=== PATIENT | male | born 1940 | race Caucasian/White ===

== ENCOUNTER → 2018-05-07 08:36 | Outpatient (CLI) | payer MEDICARE, SELFPAY ==
[2018-05-07 10:23] LABS: Alanine Aminotransferase 27 U/L (12-78); Albumin Level 3.5 gm/dL (3.4-5.0); Alkaline Phosphatase 109 U/L (46-116); Aspartate Amino Transferase 17 U/L (15-37); Bilirubin,Direct 0.2 mg/dL (0.0-0.2); Bilirubin,Indirect 0.7 mg/dL (0.0-0.9); Bilirubin,Total 0.9 mg/dL (0.2-1.0); Chol/HDL Ratio 3.4 (1-3.5); Cholesterol 100 mg/dL (140-200); Free Thyroxine Index 2.8 ug/dL (5.93-13.13); HDL Cholesterol 29 mg/dL (27-67); LDL Cholesterol 47 mg/dL (0-130); T4 (Thyroxine) 7.9 ug/dl (4.7-13.3); Thyroid Stimulating Hormone 3.29 uIU/ml (0.358-3.740); Total Protein,Serum 5.8 gm/dL (6.4-8.2); Triglycerides 119 mg/dL (30-200); Triiodothryronine (T3) Uptake 36 % (31-39); VLDL Cholesterol 24 mg/dL (0-40)
== END ==
PROVIDERS: PCP Family Medicine; Visit Provider Internal Medicine Cardiovascular Disease
DX: E11.9 Type 2 diabetes mellitus without complications (principal); Z79.899 Other long term (current) drug therapy
CPT/HCPCS: 36415; 80061; 80076; 84436; 84443; 84479

== ENCOUNTER → 2018-10-14 14:32 | Outpatient (POV) | payer MEDICARE, SELFPAY | PROVIDERS: Visit Provider Nurse Practitioner Acute Care | DX: Z00.00 Encounter for general adult medical examination without abnormal findings (principal) ==

== ENCOUNTER → 2019-11-03 09:52 | Outpatient (CLI) | payer MEDICARE, SELFPAY ==
--- NOTE | 2019-11-03 09:56 | CT_ITS ---
PROCEDURE: CT ABDOMEN PELVIS WO CON CLINICAL INDICATION: HX PROSTATE CA Prostate cancer, elevated PSA, history of colon cancer COMPARISON: No exams were available for comparison TECHNIQUE: Axial images obtained with sagittal and coronal reformats. All CT scans at the facility use one or more dose reduction, viz: automated exposure control, ma/kV adjustment per patient size (including targeted exams where dose is matched to indication, i.e. head), or iterative reconstruction technique. Oral contrast was utilized. FINDINGS: There are no previous exams available for comparison. Fibrotic changes are present in the right middle lobe. There is a left lower lobe mass which measures 3.5 by 3 cm abutting the hemidiaphragm. There is associated diaphragmatic calcification and thickening at this region. The liver, spleen, adrenal glands, pancreas, and right kidney have an unremarkable appearance. There is a 4 cm left renal cyst. Surgical clips are present in the left lower quadrant. Metallic streak artifact is present the in the right lower quadrant. No intestinal obstruction or free air. The The prostate is enlarged with nodular contour. The prostate measures 5.6 x 5.5 cm. No pelvic adenopathy. No retroperitoneal or abdominal adenopathy. Urinary bladder wall is slightly thickened. No acute bony anomalies. No lytic or blastic bony lesions. The IMPRESSION: 1. 3.5 cm left lower lobe mass with associated pleural/diaphragmatic thickening and calcification suspicious for neoplasm. Mesothelioma is a consideration. Dedicated chest CT with contrast suggested for further evaluation if there are no old studies available for comparison. The 2. Enlarged prostate with somewhat nodular contour with associated thickening of the urinary bladder wall. Dictated by: Michele Lyle MD 11/04/2019 09:11 Electronically signed by Michele Lyle MD in [place] 11/04/2019 09:11
== END ==
PROVIDERS: PCP Family Medicine; Visit Provider Urology
DX: R97.20 Elevated prostate specific antigen [PSA] (principal)
CPT/HCPCS: 74176

== ENCOUNTER → 2019-11-06 11:32 | Outpatient (CLI) | payer MEDICARE, SELFPAY ==
[2019-11-06 12:44] LABS: Anion Gap 14.2 mEq/L (5-15); Blood Urea Nitrogen 18 mg/dL (7-18); Calcium 8.6 mg/dL (8.5-10.1); Carbon Dioxide 28 mmol/L (21.0-32.0); Chloride 111 mmol/L (98-107); Creatinine,Serum 0.97 mg/dL (0.70-1.30); Estimated Glomerular Filt Rate 75 ml/min (>60); GFR (African American) 91 ML/MIN (>60); Glucose 100 mg/dL (74-106); Potassium 4.2 mmoL/L (3.5-5.1); Sodium 149 mmol/L (137-145)
== END ==
PROVIDERS: Visit Provider Internal Medicine Cardiovascular Disease
DX: E78.5 Hyperlipidemia, unspecified (principal); I10 Essential (primary) hypertension; I25.10 Atherosclerotic heart disease of native coronary artery without angina pectoris; R06.00 Dyspnea, unspecified; Z95.5 Presence of coronary angioplasty implant and graft
CPT/HCPCS: 36415; 80048; 83880

== ENCOUNTER → 2019-11-17 07:52 | Outpatient (CLI) | payer MEDICARE, SELFPAY ==
--- NOTE | 2019-11-17 07:53 | CA_ITS ---
APPROVED REPORT EXAM: Comprehensive 2D, Doppler, and color-flow Echocardiogram Microbiology Manager: Meaghan Tierney RVT Ht: 5 ft 5 in Wt: 209lbs BSA: 2.02 BP: 145/63 mmHg Indications: Diabetes, Palpitations, CAD, Hyperlipidemia, Hypertension,Stents,Gerd,Ex smoker,Hx prostate cancer 2D Dimensions LVOT 1.76 cm (M/F) 1.5-2.5 M-Mode Dimensions RVDd 3.06 cm (0.9-2.6) LVDd 6.08 cm (3.5-5.7) LVDs 4.75 cm (3.5-5.7) IVSd 1.17 cm (0.6-1.1) PWd 0.52 cm (0.6-1.1) EF (Teich) 43.50% FS 21.90% EDV (Teich) 185.50 mL ESV (Teich) 104.90 mL LV Diastology E/A Ratio 0.46 Mitral Valve MV A Velocity 75.00 (40-130 cm/s) Left Ventricle Left atrium is mildly enlarged, left ventricle is normal size, mild concentric left ventricular hypertrophy, visually estimated ejection fraction of 45%, there is marked hypokinesis involving the distal septum and anteroapical wall. Grade 1 diastolic dysfunction seen without tissue Doppler evidence of raise left atrial pressure. Right Ventricle Right atrium and right ventricular normal size and contractility. Aortic Valve Aortic valve is thickened and calcified leaflet chordae display good mobility, there is no aortic stenosis, there is mild aortic insufficiency. Mitral Valve Mitral valve leaflets are minimally thickened, there is no mitral stenosis, there is mild mitral regurgitation. Tricuspid Valve Tricuspid valve is grossly normal, there is mild tricuspid regurgitation. Pulmonic Valve Pulmonic valve is poorly visualized. Great Vessels Aortic root is normal size. Pericardium No significant pericardial effusion noted. Conclusion 1. Mildly enlarged left atrium, normal left ventricular size, mild concentric left ventricular hypertrophy, visually estimated ejection fraction 45% with segmental wall motion abnormality described above, grade 1 diastolic dysfunction seen without tissue Doppler evidence of raise left atrial pressure. 2. Thickened and calcified aortic valve without aortic stenosis, there is mild aortic insufficiency. 3. Mild mitral and tricuspid regurgitation. 4. No significant pericardial effusion noted. Electronically signed by : Jabier Nova, 11/18/2019 05:57:14
--- NOTE | 2019-11-17 08:28 | NM_ITS ---
PROCEDURE: NM BONE SCAN WHOLE BODY CLINICAL INDICATION: HX PROSTATE CANCER Elevated PSA, history of prostate cancer COMPARISON: No exams were available for comparison TECHNIQUE: 26.4 mCi technetium MDP FINDINGS: Nonspecific increased activity is present in the left knee consistent with osteoarthritic changes. There is also increased activity in the right aspect of the cervical spine at the C4-C5 level which may be degenerative nature. Overall, no convincing evidence of metastatic disease. IMPRESSION: No convincing evidence of metastatic disease Dictated by: Michele Lyle MD 11/17/2019 18:59 Electronically signed by Michele Lyle MD in [place] 11/17/2019 18:59
--- NOTE | 2019-11-17 10:38 | HMH.ITSHM ---
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 []PANTOPRAZOLE OMEGA 3 METFORMIN LOSARTAN GABAPENTIN FLAX SEED FANOTIDINE CLOPIDOGREL BISOPROLOL ATORVASTATIN ASA
== END ==
PROVIDERS: PCP Family Medicine; Visit Provider Internal Medicine Cardiovascular Disease
DX: E78.5 Hyperlipidemia, unspecified (principal); I10 Essential (primary) hypertension; I25.10 Atherosclerotic heart disease of native coronary artery without angina pectoris; Z95.5 Presence of coronary angioplasty implant and graft; Z85.46 Personal history of malignant neoplasm of prostate
CPT/HCPCS: 78306; 93306; A9503

== ENCOUNTER → 2019-11-20 11:49 | Outpatient (CLI) | payer MEDICARE, SELFPAY ==
[2019-11-20 16:38] LABS: Prostate Specific Ag, Diagnost 12.6 ng/ml (0.0-4.0)
== END ==
PROVIDERS: Visit Provider Urology
DX: Z85.46 Personal history of malignant neoplasm of prostate (principal); R97.20 Elevated prostate specific antigen [PSA]
CPT/HCPCS: 36415; 84153

== ENCOUNTER 2020-03-05 08:11 | Day surgery (SDC) | payer MEDICARE, SELFPAY ==
[2020-03-05] VITALS (11 sets, daily range): BP systolic 111–154; BP diastolic 55–73; PULSE 50–65; RESP 15–20; TEMP 36.4; O2SAT 95–100; BMI 31.3
--- NOTE | 2020-03-05 | IR_ITS ---
APPROVED REPORT Patient Location: Outpatient PROCEDURES Left heart catheterization Left ventriculogram Selective coronary angiogram INDICATION Known coronary artery disease, Left ventricular dysfunction, Typical angina pectoris Informed consent was obtained prior to the procedure. COMPLICATIONS NONE Estimated Blood Loss: LESS THAN 10 ML TECHNIQUE One percent lidocaine used to anesthetize the right anterior aspect of the wrist. The right radial artery was accessed via the Seldinger technique. A 6 Salvadorean sheath was placed in the right radial artery. 2.5 mg of verapamil, 800 mcg of nitroglycerin, 1mg Lidocaine and 5000 U Heparin were given through the arterial sheath. The ultra catheter was also used to perform left heart catheterization, left ventriculogram and selective coronary angiogram. At the end of the procedure the sheath was removed good hemostasis was achieved using Traclet band, patient was transferred to the postop holding area in stable condition. ANGIOGRAPHIC RESULTS The left main artery Normal The left anterior descending artery The proximal portion of the vessel has a smooth concentric 30% stenosis which transitions into a proximal LAD stent in which the stent is widely patent and has excellent distal transitioning. The remaining vessel has 10 to 20% stenosis The circumflex artery Is a very large caliber dominant vessel with proximal 10% stenosis in mid vessel 30% stenosis and a 30 to 40% stenosis and a proximal 3 mm terminal obtuse marginal artery The right coronary artery Small nondominant with proximal 40% stenosis The ZAMUDIO ventriculogram reveals Preserved at 55% The left ventricular end-diastolic pressure 20 mmHg IMPRESSION Coronary artery disease as described above Preserved ejection fraction Mildly elevated LVEDP PLAN 1. Medical management Electronically signed by : Jerome Steen, 03/05/2020 10:29:29
[2020-03-05 08:34] LABS: Basophils % 0.4 % (0.1-2.0); Eosinophils # 1.5 K/mm3 (0.0-0.4); Eosinophils % 19.8 % (0.1-12.0); Hematocrit 39.7 % (42.0-52.0); Hemoglobin 13.8 g/dL (14.1-18.0); Lymphocytes # 1.4 K/mm3 (0.7-4.5); Lymphocytes % 18.1 % (10-50); Mean Corpuscular HGB Conc 34.6 g/dL (31.8-35.4); Mean Corpuscular Hemoglobin 30.2 pg (27.0-31.2); Mean Corpuscular Volume 87.3 fl (80-94); Mean Platelet Volume 8.4 fl (7.4-10.4); Monocytes # 0.5 K/mm3 (0.1-1.0); Monocytes % 6.9 % (1.7-9.3); Neutrophils # 4.2 K/mm3 (1.8-7.8); Neutrophils % 54.9 % (37.0-80.0); Platelet Count 147 K/mm3 (142-424); Red Blood Count 4.55 M/mm3 (4.60-6.20); Red Cell Distribution Width 15.5 % (11.5-17.5); White Blood Count 7.7 K/mm3 (4.8-10.8)
[2020-03-05 08:37] LABS: Chloride 108 mmol/L (98-107); Potassium 4.1 mmoL/L (3.5-5.1); Sodium 142 mmol/L (136-145)
[2020-03-05 08:40] LABS: Anion Gap 9.1 mEq/L (5-15); Blood Urea Nitrogen 21 mg/dl (9-20); Calcium 9.2 mg/dl (8.4-10.2); Carbon Dioxide 29 mmol/L (22.0-30.0); Creatinine Clearance Estimated 72 mL/min (50-200); Estimated Glomerular Filt Rate 65 ml/min (>60); GFR (African American) 78 ML/MIN (>60); Glucose 134 mg/dl (74-100)
== END 2020-03-05 14:16 | disposition home or self-care (01) ==
LOC: CATHLAB 08:12
PROVIDERS: PCP Family Medicine; Visit Provider Internal Medicine
DX: I25.118 Atherosclerotic heart disease of native coronary artery with other forms of angina pectoris (principal); I10 Essential (primary) hypertension; E78.5 Hyperlipidemia, unspecified; Z95.5 Presence of coronary angioplasty implant and graft; Z87.891 Personal history of nicotine dependence; Z79.82 Long term (current) use of aspirin; Z79.899 Other long term (current) drug therapy; Z79.02 Long term (current) use of antithrombotics/antiplatelets
CPT/HCPCS: 80048; 85025; 93458; 99152; C1769; J1644; Q9967

== ENCOUNTER → 2020-04-01 13:59 | Outpatient (CLI) | payer MEDICARE, SELFPAY ==
[2020-04-01 16:09] LABS: Prostate Specific Ag, Diagnost 1.07 ng/ml (0.0-4.0)
== END ==
PROVIDERS: Visit Provider Urology
DX: C61 Malignant neoplasm of prostate (principal)
CPT/HCPCS: 36415; 84153

== ENCOUNTER → 2020-04-12 10:25 | Outpatient (CLI) | payer MEDICARE, SELFPAY | PROVIDERS: PCP Family Medicine; Visit Provider Family Medicine | DX: R91.1 Solitary pulmonary nodule (principal) ==

== ENCOUNTER → 2020-04-15 12:40 | Outpatient (CLI) | payer MEDICARE, SELFPAY ==
--- NOTE | 2020-04-15 12:45 | CT_ITS ---
PROCEDURE: CT CHEST W CON CLINCAL INDICATION: LUNG LESION History of colon cancer and prostate cancer with lung nodule, left lower lobe mass seen on previous abdomen CT COMPARISON: CT ABDOMEN PELVIS WO CON from 11/03/2019 TECHNIQUE: IV Contrast: 75ml Optiray 350 Axial images obtained with sagittal and coronal reformats. All CT scans at the facility use one or more dose reduction, viz: automated exposure control, ma/kV adjustment per patient size (including targeted exams where dose is matched to indication, i.e. head), or iterative reconstruction technique. FINDINGS: HEART AND MEDIASTINAL STRUCTURES: Scattered partially calcified mediastinal and hilar lymph nodes are present. The main pulmonary artery is slightly prominent with a pulmonary artery/aorta ratio of slightly greater than 1. No evidence aortic aneurysm or dissection. No pulmonary embolus apparent LUNGS AND PLEURAL SPACES: There are pulmonary fibrotic changes in the right middle lobe inferiorly with some honeycombing. Pulmonary fibrotic changes in the lung bases posteriorly. COPD. Left lower lobe soft tissue mass is noted measuring 4.2 cm AP, 3.7 cm transverse, 2.8 cm cephalad caudad previously measuring 3.7 cm AP, 3.4 cm transverse, and 3 cm cephalad caudad. This is rounded in nature and cysts along the hemidiaphragm. There is associated left diaphragmatic thickening with calcification along the inferior aspect of this lesion. No effusions are evident. No acute bony anomaly.. This has slightly increased in size previously measuring BONY STRUCTURES: No acute bony anomaly UPPER ABDOMEN: Unremarkable. ADDITIONAL FINDINGS: No other significant abnormalities. IMPRESSION: 1. Suspicious 4 cm soft tissue mass in the left lung base with associated diaphragmatic thickening and calcification. This appears very slightly larger compared to the previous abdomen CT of 11/03/2019. This should be amenable for biopsy with bronchoscopy if clinically desired. 2. COPD with pulmonary fibrosis Dictated by: Michele Lyle MD 04/16/2020 12:33 Electronically signed by Michele Lyle MD in [place] 04/16/2020 12:33
== END ==
PROVIDERS: PCP Family Medicine; Visit Provider Family Medicine
DX: R91.1 Solitary pulmonary nodule (principal)
CPT/HCPCS: 71260; Q9967

== ENCOUNTER → 2020-05-06 10:48 | Outpatient (CLI) | payer MEDICARE, SELFPAY | PROVIDERS: Visit Provider Internal Medicine Pulmonary Disease | DX: J42 Unspecified chronic bronchitis (principal); R06.00 Dyspnea, unspecified; R91.8 Other nonspecific abnormal finding of lung field | CPT/HCPCS: 87070; 87077; 87205 ==

== ENCOUNTER → 2020-07-05 14:07 | Outpatient (CLI) | payer MEDICARE, MEDICAID, SELFPAY ==
[2020-07-05 15:49] LABS: Prostate Specific Ag, Diagnost 0.538 ng/ml (0.0-4.0)
== END ==
PROVIDERS: Visit Provider Urology
DX: C61 Malignant neoplasm of prostate (principal)
CPT/HCPCS: 36415; 84153

== ENCOUNTER → 2021-01-03 13:33 | Outpatient (CLI) | payer MEDICARE, SELFPAY | PROVIDERS: Visit Provider Urology | DX: C61 Malignant neoplasm of prostate (principal) | CPT/HCPCS: 84153 ==

== ENCOUNTER → 2021-04-04 13:14 | Outpatient (CLI) | payer MEDICARE, SELFPAY ==
--- NOTE | 2021-04-04 13:39 | CT_ITS ---
PROCEDURE: CT CHEST W CON CLINCAL INDICATION: LESION ON LUNG Every gated chance continued see the pain to the LDCT hanging low-dose COMPARISON: CR CXR CHEST(2 VIEWS-NOT PORTABLE) from 11/25/[address] ABDOMEN PELVIS WO CON from 11/03/[address] CHEST W CON from 04/15/2020 TECHNIQUE: IV Contrast: 75ml Isovue 370 Axial images obtained with sagittal and coronal reformats. All CT scans at the facility use one or more dose reduction, viz: automated exposure control, ma/kV adjustment per patient size (including targeted exams where dose is matched to indication, i.e. head), or iterative reconstruction technique. FINDINGS: HEART AND MEDIASTINAL STRUCTURES: No mediastinal or hilar mass. There are calcified mediastinal and hilar lymph nodes. Coronary artery calcification and/or stents noted. Mild prominence of the main pulmonary artery . There is mild dilatation of the ascending aorta at the supravalvular region at 4.2 cm not significantly changed. At the most prominent area of the main pulmonary artery on the axial images the pulmonary artery/aorta ratio is greater than 1 LUNGS AND PLEURAL SPACES: COPD changes. Chronic fibrotic changes with honeycombing is present in the right middle lobe inferiorly and right lower lobe anterior laterally as before. Greater than 1. Soft tissue mass is once again noted in the left lower lobe along the left hemidiaphragm with coarse calcifications anteriorly. The mass measures 6 cm AP and 5.2 cm transverse. This includes the area of calcification as well. The soft tissue component of the mass measures 3.9 x 3.2 x 3.5 cm overall not significantly changed. Medial to this mass there is a 7 mm nodular opacity not readily apparent on the previous exam but could be due to an area of scarring or atelectatic change. BONY STRUCTURES: No acute bony abnormalities apparent. UPPER ABDOMEN: Unremarkable. ADDITIONAL FINDINGS: Mild bilateral gynecomastia IMPRESSION: Overall no change in the left lower lobe mass which abuts the hemidiaphragm with associated coarse diaphragmatic calcification. Mild prominence of the main pulmonary artery suggesting pulmonary arterial hypertension. Dictated by: Michele Lyle MD 04/04/2021 16:45 Michele Lyle MD in [place] 04/04/2021 16:45
[2021-04-04 13:54] LABS: Blood Urea Nitrogen 21 mg/dl (9-20); Estimated Glomerular Filt Rate 72 ml/min (>60); GFR (African American) 87 ML/MIN (>60)
== END ==
PROVIDERS: PCP Family Medicine; Visit Provider Family Medicine
DX: R91.1 Solitary pulmonary nodule (principal)
CPT/HCPCS: 36415; 71260; 82565; 84520; Q9967

== ENCOUNTER → 2021-07-05 13:25 | Outpatient (CLI) | payer MEDICARE, SELFPAY ==
[2021-07-05 17:00] LABS: Prostate Specific Ag, Diagnost 0.385 ng/ml (0.0-4.0)
== END ==
PROVIDERS: Visit Provider Urology
DX: C61 Malignant neoplasm of prostate (principal)
CPT/HCPCS: 36415; 84153

== ENCOUNTER 2021-08-14 07:26 | Inpatient (IN) | payer MEDICARE, SELFPAY ==
[2021-08-14] VITALS (13 sets, daily range): BP systolic 124–142; BP diastolic 43–78; PULSE 74–104; RESP 20–32; TEMP 36.6–37.7; O2SAT 71–96; BMI 30.7; BMI 30.4
--- NOTE | 2021-08-14 07:52 | ECG_ITS ---
APPROVED REPORT Exam: Resting ECG HR:92 bpm ECG Measurements Heart Rate 92 AXES WY 166 P 47 QRSd 76 QRS 25 QT 356 T 55 QTc 440 Conclusion Normal sinus rhythm NSSTST abnormality Abnormal ECG Electronically signed by : Reagan Neal MD 08/14/2021 15:35:34
--- NOTE | 2021-08-14 07:58 | XR_ITS ---
PROCEDURE INFORMATION: Exam: XR Chest Exam date and time: 08/14/2021 7:58 AM Age: 81 years old Clinical indication: Shortness of breath; Additional info: SOB TECHNIQUE: Imaging protocol: XR of the chest. Views: 1 view. COMPARISON: CT CHEST W CON 04/04/2021 2:13 PM FINDINGS: Lungs: Patchy bilateral airspace opacities most confluent in the right upper lobe. Pleural spaces: Unremarkable. No pleural effusion. No pneumothorax. Heart/Mediastinum: Unremarkable. No cardiomegaly. Bones/joints: Unremarkable. IMPRESSION: Patchy bilateral airspace opacities, most confluent in the right upper lobe, most consistent with pneumonia.
--- NOTE | 2021-08-14 08:01 | HMH.EDGENADL ---
ED Disposition Clinical Impression: Pneumonia due to COVID-19 virus Respiratory failure with hypoxia Qualifiers: Chronicity: acute Qualified Code(s): J96.01 - Acute respiratory failure with hypoxia Disposition: Home, Self-Care Condition on Discharge: Serious Referrals: Mauricio Durham MD [Primary Care Provider] - - Critical Care Critical Care Time: Yes Attestation: On 08/14/21, the high probability of a clinically significant, sudden or life threatening deterioration of the following system(s) required my full and direct attention, intervention and personal management. The time I documented below is in addition to time spent performing reported procedures but includes the following listed in this critical care notation. Total Critical Care Time: 30 Vital system(s) involved:: Respiratory Failure My critical care processes included: Assessment & monitoring of V/S, Initial and Re-exams, Data Review/Interpretation, Coordinating Care, Medication Orders and management, Documentation Medical Decision Making - Andi Inquiry Pt receiving controlled substance: No Vital Signs: 08/14/21 07:27 08/14/21 08:00 08/14/21 08:03 Temperature 99.2 F Temperature Source Oral Pulse Rate 95 H Pulse Rate [Radial] 104 H Respiratory Rate 28 H 28 H Blood Pressure 129/59 L Blood Pressure [Right Arm] 127/63 Blood Pressure Mean 82 Blood Pressure Mean [Right Arm] 84 Blood Pressure Position [Right Arm] Sitting 02 Sat by Pulse Oximetry 71 L 87 L 96 Oxygen Delivery Method Room Air Non-Rebreather Non-Rebreather Oxygen Flow Rate (LPM) 15 08/14/21 08:31 08/14/21 09:05 Temperature Temperature Source Pulse Rate 94 H Pulse Rate [Radial] Respiratory Rate 32 H Blood Pressure 133/51 L Blood Pressure [Right Arm] Blood Pressure Mean 76 Blood Pressure Mean [Right Arm] Blood Pressure Position [Right Arm] 02 Sat by Pulse Oximetry 95 94 L Oxygen Delivery Method Non-Rebreather Vapotherm Oxygen Flow Rate (LPM) 15 30 - Lab Data Lab Results 08/14/21 07:48: WBC 5.0, RBC 4.25 L, Hgb 12.2 L, Hct 37.9 L, MCV 89.2, MCH 28.6, MCHC 32.1, RDW 16.1, Plt Count 221, MPV 9.3, Neut % (Auto) 80.0, Lymph % (Auto) 12.6, [place] % (Auto) 6.7, Eos % (Auto) 0.2, Baso % (Auto) 0.5, Neut # (Auto) 4.0, Lymph # (Auto) 0.6 L, [place] # (Auto) 0.3, Eos # (Auto) 0.0, Baso # (Auto) 0.0 08/14/21 07:48: Sodium 137, Potassium 4.8, Chloride 103, Carbon Dioxide 27, Anion Gap 11.8, BUN 26 H, Creatinine 1.40 H, Estimated Creat Clear 59, Estimated GFR 49 L, Est GFR ( Amer) 59, Glucose 264 H, Calcium 8.9, Total Bilirubin 1.1, AST 75 H, ALT 40, Alkaline Phosphatase 103, Troponin I 0.02, Total Protein 6.8, Albumin 3.8, Globulin 3.0, Albumin/Globulin Ratio 1.3 08/14/21 07:48: Lactate 3.0 H 08/14/21 07:48: D-Dimer 0.93 H 08/14/21 07:48: Lactate Dehydrogenase 584, Total Creatine Kinase 303 H, C-Reactive Protein 303.4 H 08/14/21 07:50: SARS-CoV-2 (PCR) Detected A, Influenza A Untype (PCR) Not detected, Influenza Type B (PCR) Not detected Result diagrams: 08/14/21 07:48 08/14/21 07:48 Orders (Tests/Meds): ED MEDICATIONS Generic Name Dose Route Start Last Admin Trade Name Freq PRN Reason Stop Dose Admin Levofloxacin/Dextrose 750 mg in 150 mls @ 100 mls/hr 08/14/21 08:45 08/14/21 08:55 Levofloxacin 750mg/150ml Premix IV 08/28/21 08:44 100 mls/hr Q24H WALLACE Administration Discontinued Medications Generic Name Dose Route Start Last Admin Trade Name Freq PRN Reason Stop Dose Admin Dexamethasone Sodium Phosphate 10 mg 08/14/21 08:58 Dexamethasone 4mg/Ml 1ml Vial IV 08/14/21 08:59 ONCE ONE Iopamidol 70 ml 08/14/21 09:29 08/14/21 09:31 Iopamidol-370 (76%);100ml Bottle IV 08/14/21 09:30 70 ml ONCE ONE Administration Sodium Chloride 50 ml 08/14/21 09:29 08/14/21 09:30 0.9 % Sodium Chloride 50 Ml Vial IV 08/14/21 09:30 50 ml ONCE ONE Administration Sodium Chloride 10 ml 08/14/21 09:29 08/14/21
[2021-08-14 08:15] LABS: Influenza A, PCR Not Detected (NotDetected); Influenza B, PCR Not Detected (NotDetected)
[2021-08-14 08:20] LABS: Basophils % 0.5 % (0.1-2.0); Eosinophils % 0.2 % (0.1-12.0); Hematocrit 37.9 % (42.0-52.0); Hemoglobin 12.2 g/dL (14.1-18.0); Lymphocytes # 0.6 K/mm3 (0.7-4.5); Lymphocytes % 12.6 % (10-50); Mean Corpuscular HGB Conc 32.1 g/dL (31.8-35.4); Mean Corpuscular Hemoglobin 28.6 pg (27.0-31.2); Mean Corpuscular Volume 89.2 fl (80-94); Mean Platelet Volume 9.3 fl (7.4-10.4); Monocytes # 0.3 K/mm3 (0.1-1.0); Monocytes % 6.7 % (1.7-9.3); Platelet Count 221 K/mm3 (142-424); Red Blood Count 4.25 M/mm3 (4.60-6.20); Red Cell Distribution Width 16.1 % (11.5-17.5)
[2021-08-14 08:28] LABS: Alanine Aminotransferase 40 U/L (12-78); Albumin Level 3.8 g/dl (3.5-5.0); Albumin/Globulin Ratio 1.3 (1.1-1.8); Alkaline Phosphatase 103 U/L (38-126); Anion Gap 11.8 mEq/L (5-15); Aspartate Amino Transferase 75 U/L (17-59); Bilirubin,Total 1.1 mg/dl (0.2-1.3); Blood Urea Nitrogen 26 mg/dl (9-20); Calcium 8.9 mg/dl (8.4-10.2); Carbon Dioxide 27 mmol/L (22.0-30.0); Chloride 103 mmol/L (98-107); Creatinine Clearance Estimated 59 mL/min (50-200); Estimated Glomerular Filt Rate 49 ml/min (>60); GFR (African American) 59 ML/MIN (>60); Glucose 264 mg/dl (74-100); Potassium 4.8 mmoL/L (3.5-5.1); Sodium 137 mmol/L (136-145); Total Protein,Serum 6.8 g/dl (6.3-8.2)
[2021-08-14 08:38] LABS: Coronavirus 19, PCR Detected (NotDetected)
[2021-08-14 08:40] LABS: Troponin I 0.02 ng/ml (0.00-0.034)
--- NOTE | 2021-08-14 08:43 | CT_ITS ---
PROCEDURE INFORMATION: Exam: CTA Chest With Contrast Exam date and time: 08/14/2021 8:43 AM Age: 81 years old Clinical indication: Shortness of breath and other: Covid positive; Additional info: Covid 19, hypoxia, R/O pe TECHNIQUE: Imaging protocol: Computed tomographic angiography of the chest with contrast. 3D rendering (Not supervised by radiologist): MIP and/or 3D reconstructed images were created by the technologist. Radiation optimization: All CT scans at this facility use at least one of these dose optimization techniques: automated exposure control; mA and/or kV adjustment per patient size (includes targeted exams where dose is matched to clinical indication); or iterative reconstruction. Contrast material: ISOVUE; Contrast volume: 70 ml; Contrast route: INTRAVENOUS (IV); COMPARISON: CT CHEST W CON 04/04/2021 2:13 PM FINDINGS: Pulmonary arteries: No pulmonary emboli. The main pulmonary artery is dilated to 4.3 cm, which again may suggest pulmonary arterial hypertension. Aorta: Unremarkable. No aortic aneurysm. No aortic dissection. Lungs: Ground-glass opacities are seen throughout all lobes of the lungs bilaterally, new from 04/04/2021. Pleural spaces: Unremarkable. No pneumothorax. No pleural effusion. Heart: Coronary artery calcification. Lymph nodes: Calcified mediastinal and hilar lymph nodes. Diaphragm: Similar size and appearance of a left lower lobe soft tissue mass with coarse calcifications abutting the left hemidiaphragm measuring 6.7 x 4.6 cm. Gallbladder and bile ducts: Cholecystectomy. Bones/joints: Unremarkable. No acute fracture. Soft tissues: Unremarkable. IMPRESSION: 1. No pulmonary emboli identified. 2. Multilobar pneumonia. 3. Similar size and appearance of a left lower lobe soft tissue mass abutting the left hemidiaphragm.
--- NOTE | 2021-08-14 09:10 | PC.NURSE ---
Pt placed on Non rebreather to go for CTA chest
[2021-08-14 09:16] LABS: D-Dimer 0.93 ug/mL (0.0-0.5)
[2021-08-14 09:23] LABS: Creatine Kinase 303 U/L (55-170); Lactate Dehydrogenase 584 U/L (313-618)
[2021-08-14 09:29] LABS: C-Reactive Protein 303.4 mg/L (0-4)
[2021-08-14 12:13] LABS: Reflex Lactic Add Lactic Reflex
[2021-08-14 12:59] LABS: Lactic Acid Follow Up (RFLX 1) 1.6 mmol/L (0.7-2.1)
--- NOTE | 2021-08-14 14:20 | HMH.HP ---
*Admission Date: 08/14/21 *Chief complaint: COVID 19 pneumonia *History of present illness: 81 y.o. WM admitted via ER with COVID 19 pneumonia. Was vaccinated against COVID 10 December 2020, Pfizer. States he's been ill for [address] Murphy placed order last week to screen for COVID 19 but the patient did not pursue the lab tests. Positive PCR in ER. Low O2 sats, even to 70's. Has been placed on Vapotherm. He is diabetic and has history of colon resection for colon cancer 2002. Also with CAD with stents. In addition to cough, SOA, patient states he's had some diarrhea and headache. [facility] History Medical History: Reports:: Atherosclerotic Heart Disease, Cancer, Chronic Obstructive Pulmonary Disease (COPD) (LLL lesion on CXR, seems stable), Coronary Artery Disease (2 stents 2014, 2 stents 2016), Diabetes Mellitus Type 2, Gastroesophageal Reflux Disease(GERD), Hyperlipidemia, Hypertension, Lung Disease, Myocardial Infarction, Palpitations, Ulcer Denies:: Diabetes Mellitus Type 1, Internal Pacemaker, Seizures *Have you ever received a pneumonia vaccine?: Yes *Have you received a flu vaccine this season?: Yes Other Medical History: Reports: Arthritis, Cataracts, Chemotherapy Other Surgeries: Yes: No Previous Surgery, Angioplasty, Appendectomy, Cancer Surgery (2002), Cardiac Catheterization, Cholecystectomy, Colonoscopy (2018), Coronary Stent, Other (low back pain). No: Pacemaker Amputation: No Fractures: No - *Social History Smoking Status: Former smoker (quit smoking 1967) Alcohol Intake: never Alcohol Intake Frequency:: other Substance Use Type: denies use *Occupational Status:: retired Housing: house Household Members: spouse *Travel in the last 8 weeks: None Family Hx:: Coronary Artery Disease (Parents and brother), Diabetes (mother), Heart Attack Review of Systems - Constitutional Reports fever(s), Reports headache(s), Denies anorexia, Denies body ache(s), Denies chills - Eyes Reports requires corrective lenses, Denies change in vision - ENT Reports abnormal hearing, Denies mouth lesions, Denies nasal obstruction (has poor sense of smell as a rule) - *Cardiovascular Reports chest pain, Reports chest pain with activity, Reports shortness of breath, Reports shortness of breath with activity, Denies leg swelling, Denies rapid, pounding, or irregular heartbeat, Denies fainting - *Respiratory Reports chest congestion, Reports cough, Reports shortness of breath, Reports shortness of breath with activity, Reports pain with cough - *Gastrointestinal Reports abdominal pain (with coughing), Reports loose stools - *Genitourinary Denies difficulty urinating - *Musculoskeletal Reports joint pain - *Neurologic Reports weakness Meds Home Medications Medication Instructions Recorded Confirmed Type aspirin 81 mg tablet,delayed 81 mg PO QDAY 10/24/17 08/14/21 History release flaxseed oil 1,000 mg capsule 1,000 mg PO QDAY 10/24/17 08/14/21 History metformin 500 mg tablet 500 mg PO BID 10/24/17 08/14/21 History omega 0-rgw-aie-fish oil 1,000 mg 1 cap PO DAILY 10/24/17 08/14/21 History (120 mg-180 mg) capsule famotidine 20 mg tablet 20 mg PO BID tab 10/26/17 08/14/21 History atorvastatin 40 mg tablet 40 mg PO QDAY #90 tab 03/17/21 08/14/21 Rx bisoprolol fumarate 5 mg tablet 2.5 mg PO DAILY #90 tab 03/17/21 08/14/21 Rx clopidogrel 75 mg tablet 75 mg PO QDAY #90 tab 03/17/21 08/14/21 Rx gabapentin 300 mg capsule 600 mg PO BID cap 03/17/21 08/14/21 History pantoprazole 40 mg tablet,delayed 40 mg PO QDAY #90 tab 03/17/21 08/14/21 Rx release Losartan Potassium [Cozaar 25mg 25 mg PO DAILY 08/14/21 08/14/21 History Tablets] Allergies Allergy/AdvReac Type Severity Reaction Status Date / Time No Known Allergies Allergy Verified 07/05/21 13:09 Exam Vital signs and Labs for Last 24 Hours: Temp Pulse Resp BP Pulse Ox 99.9 F H 88 24 124/68 96 08/14/21 11:32 08/14/21 11:32 08/14/21 11:32 1
[2021-08-14 14:27] LABS: Coronavirus 19 IgG Antibody Positive (Negative)
[2021-08-14 14:28] LABS: Coronavirus 19 IgM Antibody Negative (Negative)
--- NOTE | 2021-08-14 14:46 | P.CONPHA_ITS ---
[facility] Pharmacy VTE Monitoring - Patient Demographics Admission date: 08/14/21 Report Date: 08/14/21 Time: 14:46 Allergies/Adverse Reactions: Patient Allergies No Known Allergies Allergy (Verified 07/05/21 13:09) Height: 1.8 m Weight: 98.8 kg Patient Problems: Current Active Problems Pneumonia due to COVID-19 virus (Acute) Respiratory failure with hypoxia (Acute) Chest pain (Acute) Diabetes mellitus (Chronic) HLD (hyperlipidemia) (Chronic) HTN (hypertension) (Chronic) CAD (coronary artery disease) (Chronic) - VTE Risk Labs: VTE Related Lab Results Hgb 12.2 g/dL (14.1-18.0) L 08/14/21 07:48 Hct 37.9 % (42.0-52.0) L 08/14/21 07:48 Plt Count 221 K/mm3 (142-424) 08/14/21 07:48 BUN 26 mg/dl (9-20) H 08/14/21 07:48 Creatinine 1.40 mg/dl (0.66-1.25) H 08/14/21 07:48 Estimated Creat Clear 59 mL/min (50-200) 08/14/21 07:48 VTE Risk Level: Moderate Risk - Prophylaxis Types of VTE Prophylaxis: TEDS Knee High, Pharmacological (LOVENOX AND HERBERT HOSE) Pharmacologic Type: Enoxaparin
[2021-08-14 21:16] LABS: POC Glucose,Bedside 275 (70-110)
[2021-08-14 22:12] LABS: POC Glucose,Bedside 257 (70-110)
[2021-08-15] VITALS (11 sets, daily range): BP systolic 127–156; BP diastolic 54–81; PULSE 60–80; RESP 20–22; TEMP 36.6–37.2; O2SAT 92–97; BMI 30.4
--- NOTE | 2021-08-15 04:38 | PC.NURSE ---
VSS, 02 sat 96% won vapotherm at 30/80; pt worried about outcome, and was somewhat restless. He has requested something to help him sleep and states he hasn't slept for 4 days, when checked on pt through the night it was noted that he was sleeping in intervals, pt complains vapotherm bothers him, pt with cough productive at times and sputum was sent for culture.
[2021-08-15 07:36] LABS: Alanine Aminotransferase 35 U/L (12-78); Albumin Level 3.2 g/dl (3.5-5.0); Albumin/Globulin Ratio 1.2 (1.1-1.8); Alkaline Phosphatase 84 U/L (38-126); Anion Gap 8.6 mEq/L (5-15); Aspartate Amino Transferase 70 U/L (17-59); Bilirubin,Total 0.6 mg/dl (0.2-1.3); Blood Urea Nitrogen 26 mg/dl (9-20); Calcium 8.6 mg/dl (8.4-10.2); Carbon Dioxide 29 mmol/L (22.0-30.0); Chloride 108 mmol/L (98-107); Creatinine Clearance Estimated 75 mL/min (50-200); Estimated Glomerular Filt Rate 64 ml/min (>60); GFR (African American) 78 ML/MIN (>60); Globulin 2.7 g/dL (1.3-3.2); Glucose 223 mg/dl (74-100); Potassium 4.6 mmoL/L (3.5-5.1); Sodium 141 mmol/L (136-145); Total Protein,Serum 5.9 g/dl (6.3-8.2)
--- NOTE | 2021-08-15 08:41 | HMH.ACPN2 ---
Internal Medicine - PN: Subj *Date: 08/15/21 *Time: 08:41 Interval history: Patient states he slept about an hour last night. States he has not slept in about 4 days. He has an ongoing frequent productive cough. This cough actually kept the patient awakened the next room. He is eating okay. Bowels have moved. He is voiding QS. Continues with Vapotherm at 70%. Although documented at 80%. O2 sats are in the 90s. Laboratory data this morning show normal potassium and sodium. BUN is 26 and creatinine is 1.1. AST is 70. He does have a low-grade fever of 99. Exam Vital signs and Labs for Last 24 Hours: Temp Pulse Resp BP Pulse Ox 99 F 78 20 130/68 96 08/15/21 04:00 08/15/21 04:00 08/15/21 04:00 08/15/21 04:00 08/15/21 06:55 Laboratory Results - last 24 hr 08/14/21 07:48: Troponin I 0.02 08/14/21 07:48: D-Dimer 0.93 H 08/14/21 07:48: Lactate Dehydrogenase 584, Total Creatine Kinase 303 H, C-Reactive Protein 303.4 H 08/14/21 11:53: SARS-CoV-2 IgG Ab (Rapid) Positive A, SARS-CoV-2 IgM Ab (Rapid) Negative 08/14/21 12:37: Lactate 1.6 08/14/21 16:28: POC Glucose 275 H 08/14/21 21:15: POC Glucose 257 H 08/15/21 06:50: Sodium 141, Potassium 4.6, Chloride 108 H, Carbon Dioxide 29, Anion Gap 8.6, BUN 26 H, Creatinine 1.10 D, Estimated Creat Clear 75, Estimated GFR 64, Est GFR ( Amer) 78 D, Glucose 223 H, Calcium 8.6, Total Bilirubin 0.6, AST 70 H, ALT 35, Alkaline Phosphatase 84, Total Protein 5.9 L, Albumin 3.2 L D, Globulin 2.7, Albumin/Globulin Ratio 1.2 I & O for Last 24 hours: Intake & Output 08/12/21 08/13/21 08/14/21 08/15/21 11:59 11:59 11:59 11:59 Intake Total 240 / 240 Output Total 375 / 375 Balance -135 / -135 Weight 217 lb 13.067 oz 217 lb Microbiology Reports for the Last 24 Hours: Microbiology 08/15/21 01:34 Sputum - Expectorated Sputum Gram Stain - Final - Constitutional no acute distress Comments: Answers questions with ease. - *Routine Respiratory Exam Present: rhonchi (Greater in the left base.), wheezes, crackles - *Routine Cardiovascular Exam Present: RRR - *Routine Abdominal Exam Present: soft, normoactive bowel sounds. Absent: tenderness, distended - *Routine Extremities Exam Absent: edema, calf tenderness Assessment and Plan (1) Pneumonia due to COVID-19 virus Status: Acute Category: Medical Code(s): U07.1 - COVID-19; J12.82 - Pneumonia due to coronavirus disease 2019 (2) Respiratory failure with hypoxia Status: Acute Qualifiers: Chronicity: acute Qualified Code(s): J96.01 - Acute respiratory failure with hypoxia Category: Medical Code(s): J96.91 - Respiratory failure, unspecified with hypoxia (3) Chest pain Status: Acute Qualifiers: Chest pain type: other chest pain Qualified Code(s): R07.89 - Other chest pain Category: Medical Code(s): R07.9 - Chest pain, unspecified (4) CAD (coronary artery disease) Status: Chronic Qualifiers: Coronary Disease-Associated Artery/Lesion type: [place] artery [place] vs. transplanted heart: [place] heart Associated angina: with other forms of angina Qualified Code(s): I25.118 - Atherosclerotic heart disease of [place] coronary artery with other forms of angina pectoris Category: Medical Code(s): I25.10 - Atherosclerotic heart disease of [place] coronary artery without angina pectoris (5) Diabetes mellitus Status: Chronic Qualifiers: Diabetes mellitus type: type 2 Diabetes mellitus jail insulin use: without jail use Diabetes mellitus complication status: without complication Qualified Code(s): E11.9 - Type 2 diabetes mellitus without complications Category: Medical Code(s): E11.9 - Type 2 diabetes mellitus without complications (6) HLD (hyperlipidemia) Status: Chronic Qualifiers: Hyperlipidemia type: mixed hyperlipidemia Qualified Code(s): E78.2 - Mixed hyperlipidemia Category: Medical Code
--- NOTE | 2021-08-15 12:16 | PC.NURSE ---
PT IS RESTING IN BED IN PRONE POSITION AT THIS TIME. VAPOTHERM HAS BEEN DECREASED TO 30 L 55% FIO2. LUNG SOUNDS HAVE SCATTERED WHEEZES/RHONCHI. ABDOMEN SOFT/NON TENDER WITH ACTIVE BOWEL SOUNDS. APPETITE HAS BEEN FAIR. PT HAS BEEN USING THE URINAL TO VOID. ALERT AND ORIENTED X4. WILL CONTINUE TO MONITOR.
--- NOTE | 2021-08-15 12:55 | HMH.PULMCON ---
*Admission Date: 08/14/21 *Reason for consult:: Acute hypoxic respiratory failure, COVID-19 pneumonia *History of present illness: Mr. Juárez is a 81-year-old male previous smoker, smoked for 15 years at half pack a day , last smoked more than 15 years ago presented to the hospital complaining of worsening respiratory distress, shortness of breath chest congestion that been going on for the 7 years gradually getting worse but upon presentation the ED patient was tested positive for COVID-19 pneumonia resting oxygen requirements to maintain her saturation at desired when pulmonary was called for further management. Patient received his 2 doses of COVID-19 vaccine, 6 months ago. [facility] History Medical History: Reports:: Atherosclerotic Heart Disease, Cancer, Chronic Obstructive Pulmonary Disease (COPD) (LLL lesion on CXR, seems stable), Coronary Artery Disease (2 stents 2014, 2 stents 2016), Diabetes Mellitus Type 2, Gastroesophageal Reflux Disease(GERD), Hyperlipidemia, Hypertension, Lung Disease, Myocardial Infarction, Palpitations, Ulcer Denies:: Diabetes Mellitus Type 1, Internal Pacemaker, Seizures *Have you ever received a pneumonia vaccine?: Yes *Have you received a flu vaccine this season?: Yes Other Medical History: Reports: Arthritis, Cataracts, Chemotherapy Other Surgeries: Yes: No Previous Surgery, Angioplasty, Appendectomy, Cancer Surgery (2002), Cardiac Catheterization, Cholecystectomy, Colonoscopy (2018), Coronary Stent, Other (low back pain). No: Pacemaker Amputation: No Fractures: No - *Social History Smoking Status: Former smoker (quit smoking 1967) Alcohol Intake: never Alcohol Intake Frequency:: other Substance Use Type: denies use *Occupational Status:: retired Housing: house Household Members: spouse *Travel in the last 8 weeks: None Family Hx:: Coronary Artery Disease (Parents and brother), Diabetes (mother), Heart Attack ROS - Cons Reports anorexia, Reports body ache(s), Reports chills - ENT Denies bleeding gums - Card Reports shortness of breath, Reports shortness of breath with activity - Resp Respiratory: Reports cough, Reports dyspnea on exertion, Reports excessive phlegm production, Denies coughing up blood, Denies pain on inspiration, Denies pain with cough - GI Gastrointestingal: Denies: abdominal pain - Psych Denies thoughts of hurting/killing others, Denies thoughts of hurting/killing yourself Meds Home Medications Medication Instructions Recorded Confirmed Type aspirin 81 mg tablet,delayed 81 mg PO DAILY 10/24/17 08/14/21 History release omega 5-rgn-guc-fish oil 1,000 mg 1 cap PO DAILY 10/24/17 08/14/21 History (120 mg-180 mg) capsule famotidine 20 mg tablet 20 mg PO BID tab 10/26/17 08/14/21 History bisoprolol fumarate 5 mg tablet 2.5 mg PO DAILY #90 tab 03/17/21 08/14/21 Rx Atorvastatin Calcium [Lipitor 40mg 40 mg PO HS 08/14/21 08/14/21 History Tab] Brimonidine Tartrate [Alphagan 1 drp EYE-BOTH BID 08/14/21 08/14/21 History 0.2% Ophth Soln 5mL] Clopidogrel Bisulfate [Plavix] 75 mg PO DAILY 08/14/21 08/14/21 History Dorzolamide HCl/Timolol Maleat 1 drp EYE-BOTH BID 08/14/21 08/14/21 History [Cosopt Ophth Soln 10mL Bottle] Flaxseed Oil 1,000 mg PO DAILY 08/14/21 08/14/21 History Gabapentin 600 mg PO TID 08/14/21 08/14/21 History Latanoprost/Pf [Latanoprost 0.005% 1 drp EYE-BOTH HS 08/14/21 08/14/21 History Eye Drop] Losartan Potassium [Cozaar 25mg 25 mg PO DAILY 08/14/21 08/14/21 History Tablets] Metformin HCl 500 mg PO BID 08/14/21 08/14/21 History Pantoprazole Sodium 40 mg PO DAILY 08/14/21 08/14/21 History Allergies Allergy/AdvReac Type Severity Reaction Status Date / Time No Known Allergies Allergy Verified 07/05/21 13:09 Exam - HENMT Exam HENMT: Present: normocephalic, atraumatic - Eye Exam Eyes:: Present: normal appearance both eyes and related structures - Neck Exam Neck:: Present: normal visual inspection - Respiratory Exa
[2021-08-15 20:46] LABS: POC Glucose,Bedside 205 (70-110)
[2021-08-16] VITALS (12 sets, daily range): BP systolic 120–146; BP diastolic 60–79; PULSE 70–90; RESP 18–22; TEMP 36.3–36.9; O2SAT 90–96; BMI 30.4; BMI 30.2
[2021-08-16 01:19] LABS: POC Glucose,Bedside 229 (70-110)
--- NOTE | 2021-08-16 06:04 | PC.NURSE ---
Pt remains on Vapotherm 30L and 55% pt's O2 has remained 89-92%. Pt has had a persistent cough t/o shift. Pt will lay on left side and prone independently. Pt has voiced no complaints of pain this shift. Call light within reach.
[2021-08-16 06:09] LABS: POC Glucose,Bedside 263 (70-110)
[2021-08-16 09:05] LABS: Alanine Aminotransferase 39 U/L (12-78); Albumin/Globulin Ratio 1.1 (1.1-1.8); Alkaline Phosphatase 84 U/L (38-126); Anion Gap 11.6 mEq/L (5-15); Aspartate Amino Transferase 65 U/L (17-59); Bilirubin,Total 0.6 mg/dl (0.2-1.3); Blood Urea Nitrogen 25 mg/dl (9-20); Calcium 8.7 mg/dl (8.4-10.2); Carbon Dioxide 24 mmol/L (22.0-30.0); Chloride 111 mmol/L (98-107); Creatinine Clearance Estimated 82 mL/min (50-200); Estimated Glomerular Filt Rate 72 ml/min (>60); GFR (African American) 87 ML/MIN (>60); Globulin 2.7 g/dL (1.3-3.2); Glucose 221 mg/dl (74-100); Potassium 4.6 mmoL/L (3.5-5.1); Sodium 142 mmol/L (136-145); Total Protein,Serum 5.7 g/dl (6.3-8.2)
--- NOTE | 2021-08-16 09:19 | HMH.PULMPN ---
Internal Medicine - PN: Subj *Date: 08/16/21 *Time: 11:00 Interval history: No acute respiratory vents overnight. Patient admits slight improvement in his symptoms. Exam - Constitutional Constitutional:: Present: no acute distress, comfortable - HENMT Exam HENMT: Present: normocephalic, atraumatic - Eye Exam Eyes:: Present: normal appearance both eyes and related structures - Neck Exam Neck:: Present: normal visual inspection - Respiratory Exam Respiratory:: Present: able to speak in complete sentences, respiratory distress, rales - Cardiovascular Exam Cardiac:: Present: S1, S2 - GI Exam GI:: Present: soft - Skin Exam Skin: Present: warm, no rash - Neurological Exam Neurological: Present: alert, awake - Extremities Exam Extremities: Present: no cyanosis, no clubbing, no edema - Psychiatric Exam Psychiatric: Present: normal affect Assessment and Plan (1) Pneumonia due to COVID-19 virus Status: Acute Category: Medical Code(s): U07.1 - COVID-19; J12.82 - Pneumonia due to coronavirus disease 2019 (2) Respiratory failure with hypoxia Status: Acute Qualifiers: Chronicity: acute Qualified Code(s): J96.01 - Acute respiratory failure with hypoxia Category: Medical Code(s): J96.91 - Respiratory failure, unspecified with hypoxia (3) Chest pain Status: Acute Qualifiers: Chest pain type: other chest pain Qualified Code(s): R07.89 - Other chest pain Category: Medical Code(s): R07.9 - Chest pain, unspecified (4) CAD (coronary artery disease) Status: Chronic Qualifiers: Coronary Disease-Associated Artery/Lesion type: [place] artery [place] vs. transplanted heart: [place] heart Associated angina: with other forms of angina Qualified Code(s): I25.118 - Atherosclerotic heart disease of [place] coronary artery with other forms of angina pectoris Category: Medical Code(s): I25.10 - Atherosclerotic heart disease of [place] coronary artery without angina pectoris (5) Diabetes mellitus Status: Chronic Qualifiers: Diabetes mellitus type: type 2 Diabetes mellitus lobsterman insulin use: without lobsterman use Diabetes mellitus complication status: without complication Qualified Code(s): E11.9 - Type 2 diabetes mellitus without complications Category: Medical Code(s): E11.9 - Type 2 diabetes mellitus without complications (6) HLD (hyperlipidemia) Status: Chronic Qualifiers: Hyperlipidemia type: mixed hyperlipidemia Qualified Code(s): E78.2 - Mixed hyperlipidemia Category: Medical Code(s): E78.5 - Hyperlipidemia, unspecified (7) HTN (hypertension) Status: Chronic Qualifiers: Hypertension type: essential hypertension Category: Medical Code(s): I10 - Essential (primary) hypertension - Assessment and plan all Dx Assessment and Plan for all problems:: #COVID-19 pneumonia: #Acute hypoxic respiratory failure: Vaccinated to dose of vaccine. Prior smoker last mammogram 15 years ago. Not on any inhalers at baseline. CTA negative for pulmonary embolism however showed diffuse bilateral airspace disease right greater than left. No evidence of leukocytosis. CRP significantly elevated to 303.4. D-dimer at 0.93 On high flow nasal cannula, weaned to 55% 30 L and saturations maintained at 93% and above. Was initiated on levofloxacin along with remdesivir, dexamethasone and baricitinib. Sputum cultures grew gram-positive cocci in clusters, suboptimal samples. Blood cultures no growth 48 hours. Interval update: Patient also recommends relatively stable since yesterday may continue to be on 50%, weaned to 50% this morning with saturations maintained at 93 to 93%. Patient admits to dyspnea with exertion. Patient unable to prone secondary to his neck pain, is trying to sleep on his side. Plan: Continue awake proning protocol Continue levofloxacin. Continue remdesivir and dexamethasone and baricitinib for COVID-19 pneumonia. Advair twice
--- NOTE | 2021-08-16 09:48 | HMH.ACPN2 ---
Internal Medicine - PN: Subj *Date: 08/16/21 *Time: 09:48 Interval history: He is on Vapotherm. He is not in any distress. He is bored. Exam Vital signs and Labs for Last 24 Hours: Temp Pulse Resp BP Pulse Ox 97.9 F 89 20 133/73 90 L 08/16/21 04:00 08/16/21 06:10 08/16/21 04:00 08/16/21 04:00 08/16/21 06:10 Laboratory Results - last 24 hr 08/15/21 05:44: POC Glucose 205 H 08/15/21 16:29: POC Glucose 263 H 08/15/21 21:27: POC Glucose 229 H 08/16/21 08:28: Sodium 142, Potassium 4.6, Chloride 111 H, Carbon Dioxide 24, Anion Gap 11.6, BUN 25 H, Creatinine 1.00, Estimated Creat Clear 82, Estimated GFR 72, Est GFR ( Amer) 87, Glucose 221 H, Calcium 8.7, Total Bilirubin 0.6, AST 65 H, ALT 39, Alkaline Phosphatase 84, Total Protein 5.7 L, Albumin 3.0 L, Globulin 2.7, Albumin/Globulin Ratio 1.1 I & O for Last 24 hours: Intake & Output 08/13/21 08/14/21 08/15/21 08/16/21 11:59 11:59 11:59 11:59 Intake Total 360 / 360 600 / 600 Output Total 375 / 375 600 / 600 Balance -15 / -15 0 / 0 Weight 217 lb 13.067 oz 217 lb 217 lb 0.721 oz Microbiology Reports for the Last 24 Hours: Microbiology 08/14/21 07:48 Blood Blood Culture - Preliminary NO GROWTH AFTER 48 HOURS 08/14/21 07:48 Blood Blood Culture - Preliminary NO GROWTH AFTER 48 HOURS - Constitutional no acute distress - *Routine HEENT Exam Head: Present: normocephalic Eye: Present: EOMI, PERRL ENT: Present: mucous membranes moist - *Routine Neck Exam Present: supple. Absent: lymphadenopathy - *Routine Respiratory Exam Present: rhonchi. Absent: respiratory distress - *Routine Cardiovascular Exam Present: RRR - *Routine Abdominal Exam Present: soft, normoactive bowel sounds. Absent: tenderness - *Routine Extremities Exam Absent: cyanosis, clubbing, edema - *Routine Skin Exam Present: warm. Absent: rash - *Routine Neurological Exam Present: alert, oriented X3 Assessment and Plan (1) Pneumonia due to COVID-19 virus Status: Acute Category: Medical Code(s): U07.1 - COVID-19; J12.82 - Pneumonia due to coronavirus disease 2019 (2) Respiratory failure with hypoxia Status: Acute Qualifiers: Chronicity: acute Qualified Code(s): J96.01 - Acute respiratory failure with hypoxia Category: Medical Code(s): J96.91 - Respiratory failure, unspecified with hypoxia (3) Chest pain Status: Acute Qualifiers: Chest pain type: other chest pain Qualified Code(s): R07.89 - Other chest pain Category: Medical Code(s): R07.9 - Chest pain, unspecified (4) CAD (coronary artery disease) Status: Chronic Qualifiers: Coronary Disease-Associated Artery/Lesion type: [place] artery [place] vs. transplanted heart: [place] heart Associated angina: with other forms of angina Qualified Code(s): I25.118 - Atherosclerotic heart disease of [place] coronary artery with other forms of angina pectoris Category: Medical Code(s): I25.10 - Atherosclerotic heart disease of [place] coronary artery without angina pectoris (5) Diabetes mellitus Status: Chronic Qualifiers: Diabetes mellitus type: type 2 Diabetes mellitus nursing home insulin use: without filler leaf cutter long use Diabetes mellitus complication status: without complication Qualified Code(s): E11.9 - Type 2 diabetes mellitus without complications Category: Medical Code(s): E11.9 - Type 2 diabetes mellitus without complications (6) HLD (hyperlipidemia) Status: Chronic Qualifiers: Hyperlipidemia type: mixed hyperlipidemia Qualified Code(s): E78.2 - Mixed hyperlipidemia Category: Medical Code(s): E78.5 - Hyperlipidemia, unspecified (7) HTN (hypertension) Status: Chronic Qualifiers: Hypertension type: essential hypertension Category: Medical Code(s): I10 - Essential (primary) hypertension - Assessment and plan all Dx Assessment and Plan
[2021-08-16 12:43] LABS: POC Glucose,Bedside 226 (70-110)
[2021-08-16 16:39] LABS: POC Glucose,Bedside 252 (70-110)
[2021-08-17] VITALS (10 sets, daily range): BP systolic 118–138; BP diastolic 57–66; PULSE 60–80; RESP 18–21; TEMP 36.7–36.9; O2SAT 88–95; BMI 30.2
--- NOTE | 2021-08-17 04:28 | PC.NURSE ---
no acute changes. pt remains on vapotherm 30/50%. no c/o soa. no c/o pain or discomfort. uses the urinal and BSC independently. pt turns and repositions independently. resting in bed at this time. call light within reach.
[2021-08-17 05:03] LABS: POC Glucose,Bedside 208 (70-110)
[2021-08-17 05:03] LABS: POC Glucose,Bedside 213 (70-110)
[2021-08-17 06:04] LABS: POC Glucose,Bedside 169 (70-110)
[2021-08-17 07:00] LABS: Alanine Aminotransferase 33 U/L (12-78); Albumin Level 2.7 g/dl (3.5-5.0); Alkaline Phosphatase 70 U/L (38-126); Anion Gap 7.5 mEq/L (5-15); Aspartate Amino Transferase 52 U/L (17-59); Bilirubin,Total 0.5 mg/dl (0.2-1.3); Blood Urea Nitrogen 26 mg/dl (9-20); Calcium 8.4 mg/dl (8.4-10.2); Carbon Dioxide 27 mmol/L (22.0-30.0); Chloride 111 mmol/L (98-107); Creatinine Clearance Estimated 82 mL/min (50-200); Estimated Glomerular Filt Rate 72 ml/min (>60); GFR (African American) 87 ML/MIN (>60); Globulin 2.6 g/dL (1.3-3.2); Glucose 154 mg/dl (74-100); Potassium 4.5 mmoL/L (3.5-5.1); Sodium 141 mmol/L (136-145); Total Protein,Serum 5.3 g/dl (6.3-8.2)
--- NOTE | 2021-08-17 09:14 | HMH.PULMPN ---
Internal Medicine - PN: Subj *Date: 08/17/21 *Time: 10:49 Interval history: No acute respiratory vents overnight. Patient admits continued improvement in symptoms. Exam - Constitutional Constitutional:: Present: no acute distress, comfortable - HENMT Exam HENMT: Present: normocephalic - Eye Exam Eyes:: Present: normal appearance both eyes and related structures - Neck Exam Neck:: Present: normal visual inspection - Respiratory Exam Respiratory:: Present: no respiratory distress, rales - Cardiovascular Exam Cardiac:: Present: S1, S2 - GI Exam GI:: Present: soft - Skin Exam Skin: Present: warm, no rash - Neurological Exam Neurological: Present: alert, awake, normal cognition - Extremities Exam Extremities: Present: no cyanosis, no clubbing, no edema Assessment and Plan (1) Pneumonia due to COVID-19 virus Status: Acute Category: Medical Code(s): U07.1 - COVID-19; J12.82 - Pneumonia due to coronavirus disease 2019 (2) Respiratory failure with hypoxia Status: Acute Qualifiers: Qualified Code(s): J96.01 - Acute respiratory failure with hypoxia Category: Medical Code(s): J96.91 - Respiratory failure, unspecified with hypoxia (3) Chest pain Status: Acute Qualifiers: Qualified Code(s): R07.89 - Other chest pain Category: Medical Code(s): R07.9 - Chest pain, unspecified (4) CAD (coronary artery disease) Status: Chronic Qualifiers: Qualified Code(s): I25.118 - Atherosclerotic heart disease of [place] coronary artery with other forms of angina pectoris Category: Medical Code(s): I25.10 - Atherosclerotic heart disease of [place] coronary artery without angina pectoris (5) Diabetes mellitus Status: Chronic Qualifiers: Qualified Code(s): E11.9 - Type 2 diabetes mellitus without complications Category: Medical Code(s): E11.9 - Type 2 diabetes mellitus without complications (6) HLD (hyperlipidemia) Status: Chronic Qualifiers: Qualified Code(s): E78.2 - Mixed hyperlipidemia Category: Medical Code(s): E78.5 - Hyperlipidemia, unspecified (7) HTN (hypertension) Status: Chronic Category: Medical Code(s): I10 - Essential (primary) hypertension - Assessment and plan all Dx Assessment and Plan for all problems:: #COVID-19 pneumonia: #Acute hypoxic respiratory failure: Vaccinated to dose of vaccine. Prior smoker last mammogram 15 years ago. Not on any inhalers at baseline. CTA negative for pulmonary embolism however showed diffuse bilateral airspace disease right greater than left. No evidence of leukocytosis. CRP significantly elevated to 303.4. D-dimer at 0.93 On high flow nasal cannula, weaned to 55% 30 L and saturations maintained at 93% and above. Was initiated on levofloxacin along with remdesivir, dexamethasone and baricitinib. Sputum cultures grew gram-positive cocci in clusters, suboptimal samples. Blood cultures no growth 48 hours. Interval update: Stable renal function. Patient admits continued improvement in his symptoms. Plan: -Continue high flow nasal oxygen supplementation, wean to 20 L 35%. Patient remained stable into 6 L nasal cannula. Continue awake proning protocol Continue levofloxacin. Continue remdesivir x 5 days and dexamethasonex 10 days and [id number] days for COVID-19 pneumonia. Advair twice daily scheduled along with DuoNebs every 6 hours as needed. 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 Nodule appeared to be stable in size on his CAT scan on this admission. We will continue to monitor as outlined in his prior clinic note. #Thank you for involving pulmonary in this patient care. We will continue to follow.
--- NOTE | 2021-08-17 10:18 | DIET.NUTRFU ---
PO intakes 50%, weight stable, BG moderate-high avg. 215.
[2021-08-17 12:17] LABS: POC Glucose,Bedside 166 (70-110)
[2021-08-17 17:30] LABS: POC Glucose,Bedside 195 (70-110)
--- NOTE | 2021-08-17 18:27 | HMH.ACPN2 ---
Internal Medicine - PN: Subj *Date: 08/17/21 *Time: 18:27 Interval history: Clinically stable and resting comfortably. Still on Vapotherm at 20. Moving air fairly well on auscultation but with rhonchi. Trace of leg edema bilaterally. Exam Vital signs and Labs for Last 24 Hours: Temp Pulse Resp BP Pulse Ox 98.5 F 72 21 118/60 89 L 08/17/21 15:50 08/17/21 15:50 08/17/21 15:50 08/17/21 15:50 08/17/21 15:50 Laboratory Results - last 24 hr 08/16/21 05:05: POC Glucose 208 H 08/16/21 21:37: POC Glucose 213 H 08/17/21 05:28: POC Glucose 169 H 08/17/21 06:24: Sodium 141, Potassium 4.5, Chloride 111 H, Carbon Dioxide 27, Anion Gap 7.5, BUN 26 H, Creatinine 1.00, Estimated Creat Clear 82, Estimated GFR 72, Est GFR ( Amer) 87, Glucose 154 H D, Calcium 8.4, Total Bilirubin 0.5, AST 52, ALT 33, Alkaline Phosphatase 70, Total Protein 5.3 L, Albumin 2.7 L, Globulin 2.6, Albumin/Globulin Ratio 1.0 L 08/17/21 12:00: POC Glucose 166 H 08/17/21 17:19: POC Glucose 195 H I & O for Last 24 hours: Intake & Output 08/15/21 08/16/21 08/17/21 08/18/21 11:59 11:59 11:59 11:59 Intake Total 360 / 360 720 / 720 480 / 480 240 / 240 Output Total 375 / 375 925 / 925 650 / 650 275 / 275 Balance -15 / -15 -205 / -205 -170 / -170 -35 / -35 Weight 217 lb 216 lb 0.848 oz 215 lb 13.321 oz Microbiology Reports for the Last 24 Hours: Microbiology 08/15/21 01:34 Sputum - Expectorated Sputum Gram Stain - Final 08/15/21 01:34 Sputum - Expectorated Sputum Sputum Culture - Final Normal Respiratory [place] - Constitutional no acute distress - *Routine HEENT Exam Head: Present: normocephalic Eye: Present: EOMI, PERRL ENT: Present: mucous membranes moist - *Routine Neck Exam Present: supple. Absent: lymphadenopathy - *Routine Respiratory Exam Present: rhonchi (Good air movement) - *Routine Cardiovascular Exam Present: RRR - *Routine Abdominal Exam Present: soft, normoactive bowel sounds. Absent: tenderness - *Routine Extremities Exam Present: edema (Trace). Absent: cyanosis, clubbing - *Routine Skin Exam Present: warm. Absent: rash - *Routine Neurological Exam Present: alert, oriented X3 Assessment and Plan (1) Pneumonia due to COVID-19 virus Status: Acute Category: Medical Code(s): U07.1 - COVID-19; J12.82 - Pneumonia due to coronavirus disease 2019 (2) Respiratory failure with hypoxia Status: Acute Qualifiers: Chronicity: acute Qualified Code(s): J96.01 - Acute respiratory failure with hypoxia Category: Medical Code(s): J96.91 - Respiratory failure, unspecified with hypoxia (3) Chest pain Status: Acute Qualifiers: Chest pain type: other chest pain Qualified Code(s): R07.89 - Other chest pain Category: Medical Code(s): R07.9 - Chest pain, unspecified (4) CAD (coronary artery disease) Status: Chronic Qualifiers: Coronary Disease-Associated Artery/Lesion type: [place] artery [place] vs. transplanted heart: [place] heart Associated angina: with other forms of angina Qualified Code(s): I25.118 - Atherosclerotic heart disease of [place] coronary artery with other forms of angina pectoris Category: Medical Code(s): I25.10 - Atherosclerotic heart disease of [place] coronary artery without angina pectoris (5) Diabetes mellitus Status: Chronic Qualifiers: Diabetes mellitus type: type 2 Diabetes mellitus terminal carman insulin use: without fpc use Diabetes mellitus complication status: without complication Qualified Code(s): E11.9 - Type 2 diabetes mellitus without complications Category: Medical Code(s): E11.9 - Type 2 diabetes mellitus without complications (6) HLD (hyperlipidemia) Status: Chronic Qualifiers: Hyperlipidemia type: mixed hyperlipidemia Qualified Code(s): E78.2 - Mixed hyperlipidemia Category: Medical Code(s): E78.5 - Hyperlipidemia, unspecified (7) HTN (hype
[2021-08-18] VITALS (11 sets, daily range): BP systolic 111–130; BP diastolic 55–66; PULSE 50–78; RESP 17–22; TEMP 36.3–37.1; O2SAT 87–94; BMI 30.1
--- NOTE | 2021-08-18 03:38 | PC.NURSE ---
A&OX4. PT TOLERATING VAPOTHERM AT 20/45. O2 SAT AT 90%. PT DOES HAVE INTERMITTENT COUGH PRESENT. WILL DESAT WITH COUGH BUT QUICKLY RECOVERS. PT HAS HAD NO C/O THUS FAR THIS SHIFT. SLEEPING T/O MAJORITY OF SHIFT. COVID PRECAUTIONS IN PLACE. VSS WILL CONTINUE TO MONITOR.
[2021-08-18 05:16] LABS: POC Glucose,Bedside 137 (70-110)
[2021-08-18 05:16] LABS: POC Glucose,Bedside 241 (70-110)
[2021-08-18 06:58] LABS: Basophils % 0.4 % (0.1-2.0); Eosinophils % 0.2 % (0.1-12.0); Hematocrit 33.3 % (42.0-52.0); Lymphocytes # 1.1 K/mm3 (0.7-4.5); Lymphocytes % 13.3 % (10-50); Mean Corpuscular HGB Conc 32.9 g/dL (31.8-35.4); Mean Corpuscular Hemoglobin 28.8 pg (27.0-31.2); Mean Corpuscular Volume 87.5 fl (80-94); Mean Platelet Volume 8.6 fl (7.4-10.4); Monocytes # 0.5 K/mm3 (0.1-1.0); Monocytes % 6.6 % (1.7-9.3); Neutrophils # 6.2 K/mm3 (1.8-7.8); Neutrophils % 79.4 % (37.0-80.0); Platelet Count 288 K/mm3 (142-424); Red Blood Count 3.81 M/mm3 (4.60-6.20); Red Cell Distribution Width 16.2 % (11.5-17.5); White Blood Count 7.8 K/mm3 (4.8-10.8)
[2021-08-18 07:12] LABS: Albumin Level 2.8 g/dl (3.5-5.0); Albumin/Globulin Ratio 1.1 (1.1-1.8); Alkaline Phosphatase 73 U/L (38-126); Anion Gap 9.2 mEq/L (5-15); Aspartate Amino Transferase 52 U/L (17-59); Bilirubin,Total 0.6 mg/dl (0.2-1.3); Blood Urea Nitrogen 25 mg/dl (9-20); Calcium 8.6 mg/dl (8.4-10.2); Carbon Dioxide 27 mmol/L (22.0-30.0); Chloride 109 mmol/L (98-107); Creatinine Clearance Estimated 81 mL/min (50-200); Estimated Glomerular Filt Rate 72 ml/min (>60); GFR (African American) 87 ML/MIN (>60); Globulin 2.6 g/dL (1.3-3.2); Glucose 125 mg/dl (74-100); Potassium 4.2 mmoL/L (3.5-5.1); Sodium 141 mmol/L (136-145); Total Protein,Serum 5.4 g/dl (6.3-8.2)
--- NOTE | 2021-08-18 08:00 | XR_ITS ---
PROCEDURE INFORMATION: Exam: XR Chest Exam date and time: 08/18/2021 8:00 AM Age: 81 years old Clinical indication: Cough; Additional info: Covid 19 pneumonia TECHNIQUE: Imaging protocol: XR of the chest. Views: 1 view. COMPARISON: CR XR CHEST PORTABLE 08/14/2021 8:15 AM FINDINGS: Lungs: Emphysematous change and bilateral interstitial/airspace disease in the setting of reported COVID-19 pneumonitis. The extent of left basilar airspace disease has worsened. Pleural spaces: No pleural effusion. Heart/Mediastinum: No cardiomegaly. Vasculature: Calcification of the thoracic aorta. Bones/joints: Degenerative change. IMPRESSION: Emphysematous change and bilateral interstitial/airspace disease in the setting of reported COVID-19 pneumonitis.
[2021-08-18 09:25] LABS: Alanine Aminotransferase 37 U/L (12-78)
--- NOTE | 2021-08-18 09:28 | HMH.ACPN2 ---
Internal Medicine - PN: Subj *Date: 08/18/21 *Time: 09:29 Interval history: Comfortable on Vapotherm at 20/45. Sats in the 90s. He desaturates with coughing or exertion. He notices some leg edema. Exam Vital signs and Labs for Last 24 Hours: Temp Pulse Resp BP Pulse Ox 98.4 F 74 20 126/58 L 89 L 08/18/21 08:00 08/18/21 08:00 08/18/21 08:00 08/18/21 08:00 08/18/21 08:00 Laboratory Results - last 24 hr 08/17/21 12:00: POC Glucose 166 H 08/17/21 17:19: POC Glucose 195 H 08/17/21 20:54: POC Glucose 241 H 08/18/21 05:08: POC Glucose 137 H 08/18/21 06:25: Sodium 141, Potassium 4.2, Chloride 109 H, Carbon Dioxide 27, Anion Gap 9.2, BUN 25 H, Creatinine 1.00, Estimated Creat Clear 81, Estimated GFR 72, Est GFR ( Amer) 87, Glucose 125 H, Calcium 8.6, Total Bilirubin 0.6, AST 52, ALT 37, Alkaline Phosphatase 73, Total Protein 5.4 L, Albumin 2.8 L, Globulin 2.6, Albumin/Globulin Ratio 1.1 08/18/21 06:25: WBC 7.8, RBC 3.81 L, Hgb 11.0 L, Hct 33.3 L, MCV 87.5, MCH 28.8, MCHC 32.9, RDW 16.2, Plt Count 288 D, MPV 8.6, Neut % (Auto) 79.4, Lymph % (Auto) 13.3, [place] % (Auto) 6.6, Eos % (Auto) 0.2, Baso % (Auto) 0.4, Neut # (Auto) 6.2, Lymph # (Auto) 1.1, [place] # (Auto) 0.5, Eos # (Auto) 0.0, Baso # (Auto) 0.0 I & O for Last 24 hours: Intake & Output 08/15/21 08/16/21 08/17/21 08/18/21 11:59 11:59 11:59 11:59 Intake Total 360 / 360 720 / 720 480 / 480 720 / 720 Output Total 375 / 375 925 / 925 650 / 650 775 / 775 Balance -15 / -15 -205 / -205 -170 / -170 -55 / -55 Weight 217 lb 216 lb 0.848 oz 215 lb 13.321 oz 215 lb Microbiology Reports for the Last 24 Hours: Microbiology 08/15/21 01:34 Sputum - Expectorated Sputum Gram Stain - Final 08/15/21 01:34 Sputum - Expectorated Sputum Sputum Culture - Final Normal Respiratory [place] - Constitutional no acute distress - *Routine HEENT Exam Head: Present: normocephalic Eye: Present: EOMI, PERRL ENT: Present: mucous membranes moist - *Routine Neck Exam Present: supple. Absent: lymphadenopathy - *Routine Respiratory Exam Present: rhonchi (Seem less prominent). Absent: respiratory distress - *Routine Cardiovascular Exam Present: RRR - *Routine Abdominal Exam Present: soft, normoactive bowel sounds. Absent: tenderness - *Routine Extremities Exam Absent: edema - *Routine Skin Exam Present: warm. Absent: rash - *Routine Neurological Exam Present: alert, oriented X3 Assessment and Plan (1) Pneumonia due to COVID-19 virus Status: Acute Category: Medical Code(s): U07.1 - COVID-19; J12.82 - Pneumonia due to coronavirus disease 2019 (2) Respiratory failure with hypoxia Status: Acute Qualifiers: Chronicity: acute Qualified Code(s): J96.01 - Acute respiratory failure with hypoxia Category: Medical Code(s): J96.91 - Respiratory failure, unspecified with hypoxia (3) Chest pain Status: Acute Qualifiers: Chest pain type: other chest pain Qualified Code(s): R07.89 - Other chest pain Category: Medical Code(s): R07.9 - Chest pain, unspecified (4) CAD (coronary artery disease) Status: Chronic Qualifiers: Coronary Disease-Associated Artery/Lesion type: [place] artery [place] vs. transplanted heart: [place] heart Associated angina: with other forms of angina Qualified Code(s): I25.118 - Atherosclerotic heart disease of [place] coronary artery with other forms of angina pectoris Category: Medical Code(s): I25.10 - Atherosclerotic heart disease of [place] coronary artery without angina pectoris (5) Diabetes mellitus Status: Chronic Qualifiers: Diabetes mellitus type: type 2 Diabetes mellitus terminal computer operator insulin use: without fci use Diabetes mellitus complication status: without complication Qualified Code(s): E11.9 - Type 2 diabetes mellitus without complications Category: Medical Code(s): E11.9 - Type 2 diabetes mellitus without complication
[2021-08-18 11:11] LABS: POC Glucose,Bedside 196 (70-110)
--- NOTE | 2021-08-18 15:51 | PC.NURSE ---
Pt remains on 20L and 45% at this time. This am pt given lasix per nov and has been doing better, with 02 sats. Have spoke with RT,Sally and made her aware of goal to wean vapotherm when pt is able. Pt up to chair at this time w/o and complaints. VSS. CB in reach.
[2021-08-18 16:57] LABS: POC Glucose,Bedside 295 (70-110)
[2021-08-18 21:13] LABS: POC Glucose,Bedside 176 (70-110)
[2021-08-19] VITALS (10 sets, daily range): BP systolic 103–131; BP diastolic 60–69; PULSE 60–91; RESP 18–22; TEMP 36.4–37.6; O2SAT 86–95; BMI 28.0
--- NOTE | 2021-08-19 03:27 | PC.NURSE ---
A&OX4. TOLERATING VAPO AT 20/45. NO C/O THUS FAR. PT WAS GIVEN A BED BATH AND LINEN CHANGE. ALSO PROVIDED BOTTLED WATER WHICH WAS ASKED FOR BY FAMILY. PT STANDBY ASSIST IN ROOM. DOES HAVE INTERMITTENT NON-PRODUCTIVE COUGH. VSS WILL CONTINUE TO MONITOR.
[2021-08-19 06:58] LABS: Alanine Aminotransferase 44 U/L (12-78); Albumin Level 3.4 g/dl (3.5-5.0); Albumin/Globulin Ratio 1.4 (1.1-1.8); Alkaline Phosphatase 87 U/L (38-126); Anion Gap 11.9 mEq/L (5-15); Aspartate Amino Transferase 49 U/L (17-59); Bilirubin,Total 0.9 mg/dl (0.2-1.3); Blood Urea Nitrogen 30 mg/dl (9-20); Carbon Dioxide 29 mmol/L (22.0-30.0); Chloride 105 mmol/L (98-107); Creatinine Clearance Estimated 63 mL/min (50-200); Estimated Glomerular Filt Rate 58 ml/min (>60); GFR (African American) 70 ML/MIN (>60); Globulin 2.5 g/dL (1.3-3.2); Glucose 139 mg/dl (74-100); Potassium 3.9 mmoL/L (3.5-5.1); Sodium 142 mmol/L (136-145); Total Protein,Serum 5.9 g/dl (6.3-8.2)
--- NOTE | 2021-08-19 08:57 | HMH.ACPN2 ---
Internal Medicine - PN: Subj *Date: 08/19/21 *Time: 08:57 Interval history: Patient states he is feeling a little bit better today. He still very tired and short of breath with any movement. He still has Vapotherm in place. He has some pain across his chest. He slept better last night and did eat some of his breakfast this morning. Exam Vital signs and Labs for Last 24 Hours: Temp Pulse Resp BP Pulse Ox 97.5 F L 65 22 131/62 86 L 08/19/21 04:00 08/19/21 05:41 08/19/21 04:00 08/19/21 04:00 08/19/21 05:41 Laboratory Results - last 24 hr 08/18/21 06:25: ALT 37 08/18/21 10:23: POC Glucose 196 H 08/18/21 16:28: POC Glucose 295 H 08/18/21 20:34: POC Glucose 176 H 08/19/21 06:28: Sodium 142, Potassium 3.9, Chloride 105, Carbon Dioxide 29, Anion Gap 11.9, BUN 30 H, Creatinine 1.20, Estimated Creat Clear 63, Estimated GFR 58 L, Est GFR ( Amer) 70, Glucose 139 H, Calcium 9.0, Total Bilirubin 0.9, AST 49, ALT 44, Alkaline Phosphatase 87, Total Protein 5.9 L, Albumin 3.4 L D, Globulin 2.5, Albumin/Globulin Ratio 1.4 I & O for Last 24 hours: Intake & Output 08/16/21 08/17/21 08/18/21 08/19/21 11:59 11:59 11:59 11:59 Intake Total 720 / 720 480 / 480 720 / 720 700 / 700 Output Total 925 / 925 650 / 650 775 / 775 1900 / 1900 Balance -205 / -205 -170 / -170 -55 / -55 -1200 / -1200 Weight 216 lb 0.848 oz 215 lb 13.321 oz 215 lb 200 lb 13.458 oz Microbiology Reports for the Last 24 Hours: Microbiology 08/14/21 07:48 Blood Blood Culture - Final NO GROWTH AFTER 5 DAYS 08/14/21 07:48 Blood Blood Culture - Final NO GROWTH AFTER 5 DAYS - Constitutional no acute distress - *Routine Respiratory Exam Present: rhonchi, wheezes - *Routine Cardiovascular Exam Present: RRR - *Routine Abdominal Exam Present: soft, normoactive bowel sounds. Absent: tenderness - *Routine Extremities Exam Absent: cyanosis, clubbing, edema - *Routine Skin Exam Present: warm. Absent: rash - *Routine Neurological Exam Present: alert, oriented X3 Assessment and Plan (1) Pneumonia due to COVID-19 virus Status: Acute Category: Medical Code(s): U07.1 - COVID-19; J12.82 - Pneumonia due to coronavirus disease 2019 (2) Respiratory failure with hypoxia Status: Acute Qualifiers: Chronicity: acute Qualified Code(s): J96.01 - Acute respiratory failure with hypoxia Category: Medical Code(s): J96.91 - Respiratory failure, unspecified with hypoxia (3) Chest pain Status: Acute Qualifiers: Chest pain type: other chest pain Qualified Code(s): R07.89 - Other chest pain Category: Medical Code(s): R07.9 - Chest pain, unspecified (4) CAD (coronary artery disease) Status: Chronic Qualifiers: Coronary Disease-Associated Artery/Lesion type: [place] artery [place] vs. transplanted heart: [place] heart Associated angina: with other forms of angina Qualified Code(s): I25.118 - Atherosclerotic heart disease of [place] coronary artery with other forms of angina pectoris Category: Medical Code(s): I25.10 - Atherosclerotic heart disease of [place] coronary artery without angina pectoris (5) Diabetes mellitus Status: Chronic Qualifiers: Diabetes mellitus type: type 2 Diabetes mellitus care home insulin use: without termite exterminator use Diabetes mellitus complication status: without complication Qualified Code(s): E11.9 - Type 2 diabetes mellitus without complications Category: Medical Code(s): E11.9 - Type 2 diabetes mellitus without complications (6) HLD (hyperlipidemia) Status: Chronic Qualifiers: Hyperlipidemia type: mixed hyperlipidemia Qualified Code(s): E78.2 - Mixed hyperlipidemia Category: Medical Code(s): E78.5 - Hyperlipidemia, unspecified (7) HTN (hypertension) Status: Chronic Qualifiers: Hypertension type: essential hypertension Category: Medical Code(s): I10 - Es
--- NOTE | 2021-08-19 10:18 | DIET.NUTRFU ---
Pt still very tired and short of breathe with movement per MD progress note. POC Glucose- 196, 295, 176. PO intake 53% average at last three meals. Will continue to monitor.
--- NOTE | 2021-08-19 11:44 | HMH.PULMPN ---
Internal Medicine - PN: Subj *Date: 08/19/21 *Time: 12:32 Interval history: No acute respiratory events in the last 48 hours. Patient admits only slightest improvement in his symptoms. Exam - Constitutional Constitutional:: Present: no acute distress - HENMT Exam HENMT: Present: normocephalic - Eye Exam Eyes:: Present: normal appearance both eyes and related structures - Neck Exam Neck:: Present: normal visual inspection - Respiratory Exam Respiratory:: Present: able to speak in complete sentences, rales - Cardiovascular Exam Cardiac:: Present: S1, S2 - GI Exam GI:: Present: soft - Skin Exam Skin: Present: warm, no rash - Neurological Exam Neurological: Present: alert, awake, normal cognition - Extremities Exam Extremities: Present: no cyanosis, no clubbing, edema Assessment and Plan (1) Pneumonia due to COVID-19 virus Status: Acute Category: Medical Code(s): U07.1 - COVID-19; J12.82 - Pneumonia due to coronavirus disease 2019 (2) Respiratory failure with hypoxia Status: Acute Qualifiers: Chronicity: acute Qualified Code(s): J96.01 - Acute respiratory failure with hypoxia Category: Medical Code(s): J96.91 - Respiratory failure, unspecified with hypoxia (3) Chest pain Status: Acute Qualifiers: Chest pain type: other chest pain Qualified Code(s): R07.89 - Other chest pain Category: Medical Code(s): R07.9 - Chest pain, unspecified (4) CAD (coronary artery disease) Status: Chronic Qualifiers: Coronary Disease-Associated Artery/Lesion type: [place] artery [place] vs. transplanted heart: [place] heart Associated angina: with other forms of angina Qualified Code(s): I25.118 - Atherosclerotic heart disease of [place] coronary artery with other forms of angina pectoris Category: Medical Code(s): I25.10 - Atherosclerotic heart disease of [place] coronary artery without angina pectoris (5) Diabetes mellitus Status: Chronic Qualifiers: Diabetes mellitus type: type 2 Diabetes mellitus mcfp insulin use: without long term care social worker use Diabetes mellitus complication status: without complication Qualified Code(s): E11.9 - Type 2 diabetes mellitus without complications Category: Medical Code(s): E11.9 - Type 2 diabetes mellitus without complications (6) HLD (hyperlipidemia) Status: Chronic Qualifiers: Hyperlipidemia type: mixed hyperlipidemia Qualified Code(s): E78.2 - Mixed hyperlipidemia Category: Medical Code(s): E78.5 - Hyperlipidemia, unspecified (7) HTN (hypertension) Status: Chronic Qualifiers: Hypertension type: essential hypertension Category: Medical Code(s): I10 - Essential (primary) hypertension - Assessment and plan all Dx Assessment and Plan for all problems:: #COVID-19 pneumonia: #Acute hypoxic respiratory failure: Vaccinated with 2 doses. Prior smoker last smoked 15 years ago. Not on any inhalers at baseline. CTA negative for pulmonary embolism however showed diffuse bilateral airspace disease right greater than left. No evidence of leukocytosis. CRP significantly elevated to 303.4. D-dimer at 0.93 Was initiated on levofloxacin along with remdesivir, dexamethasone and baricitinib. Sputum cultures grew gram-positive cocci in clusters, suboptimal samples. Blood cultures no growth 48 hours. Interval update: Renal function slightly worsened creatinine 1.2. Transaminases within normal limits. Patient admits only slight improvement in his symptoms. Patient continues remain on 20 L 40% high flow nasal cannula. Examination revealed mild worsening lower extremity edema. Patient advised to be active. Patient is not on any maintenance fluids. Plan: F/U CRP Continue high flow nasal oxygen supplementation, @ 20L, 40%% -wean as tolerated with O2 saturation goal of 88% and above. Continue awake proning protocol Continue levofloxacinx 7 days Continue remdesivir x 5 days and dexamethasonex 10 days and barici
[2021-08-19 16:38] LABS: POC Glucose,Bedside 210 (70-110)
[2021-08-19 16:38] LABS: POC Glucose,Bedside 262 (70-110)
--- NOTE | 2021-08-19 17:00 | PC.NURSE ---
Pt is alert and oriented x4. Rhonchi and wheezes noted t/o lungs. He remains on 20L vapotherm at 40% w/O2 sats running in the upper 80's-low 90's. He has been up to the chair the majority of the shift. He's been NSR on telemetry. Glucose elevated at 210 & 262 on checks, covered w/SSI per mar. Most recent bm was today. No complaints voiced this shift.
[2021-08-20] VITALS (13 sets, daily range): BP systolic 108–148; BP diastolic 44–78; PULSE 60–98; RESP 16–22; TEMP 36.4–37.4; O2SAT 90–94; BMI 29.2
[2021-08-20 00:42] LABS: POC Glucose,Bedside 238 (70-110)
[2021-08-20 07:09] LABS: Alanine Aminotransferase 34 U/L (12-78); Albumin Level 2.9 g/dl (3.5-5.0); Albumin/Globulin Ratio 1.3 (1.1-1.8); Alkaline Phosphatase 72 U/L (38-126); Anion Gap 9.1 mEq/L (5-15); Aspartate Amino Transferase 39 U/L (17-59); Blood Urea Nitrogen 27 mg/dl (9-20); Calcium 8.8 mg/dl (8.4-10.2); Carbon Dioxide 31 mmol/L (22.0-30.0); Chloride 106 mmol/L (98-107); Creatinine Clearance Estimated 79 mL/min (50-200); Estimated Glomerular Filt Rate 72 ml/min (>60); GFR (African American) 87 ML/MIN (>60); Globulin 2.2 g/dL (1.3-3.2); Glucose 159 mg/dl (74-100); Potassium 5.1 mmoL/L (3.5-5.1); Sodium 141 mmol/L (136-145); Total Protein,Serum 5.1 g/dl (6.3-8.2)
[2021-08-20 07:15] LABS: C-Reactive Protein 46.1 mg/L (0-4)
--- NOTE | 2021-08-20 09:02 | HMH.ACPN2 ---
Internal Medicine - PN: Subj *Date: 08/20/21 *Time: 09:02 Interval history: Patient states he may be feeling a little bit better today. He still has shortness of breath and some pain across his chest. He did sleep better last night and ate all of his breakfast this morning. Exam Vital signs and Labs for Last 24 Hours: Temp Pulse Resp BP Pulse Ox 98.5 F 98 H 22 127/72 90 L 08/20/21 08:00 08/20/21 08:00 08/20/21 08:00 08/20/21 08:00 08/20/21 08:00 Laboratory Results - last 24 hr 08/19/21 11:12: POC Glucose 210 H 08/19/21 16:30: POC Glucose 262 H 08/19/21 20:18: POC Glucose 238 H 08/20/21 06:30: Sodium 141, Potassium 5.1 D, Chloride 106, Carbon Dioxide 31 H, Anion Gap 9.1, BUN 27 H, Creatinine 1.00, Estimated Creat Clear 79, Estimated GFR 72, Est GFR ( Amer) 87 D, Glucose 159 H, Calcium 8.8, Total Bilirubin 1.0, AST 39, ALT 34, Alkaline Phosphatase 72, C-Reactive Protein 46.1 H, Total Protein 5.1 L, Albumin 2.9 L D, Globulin 2.2, Albumin/Globulin Ratio 1.3 I & O for Last 24 hours: Intake & Output 08/17/21 08/18/21 08/19/21 08/20/21 11:59 11:59 11:59 11:59 Intake Total 480 / 480 720 / 720 940 / 940 580 / 580 Output Total 650 / 650 775 / 775 1900 / 1900 500 / 500 Balance -170 / -170 -55 / -55 -960 / -960 80 / 80 Weight 215 lb 13.321 oz 215 lb 200 lb 13.458 oz 208 lb 14.4 oz Microbiology Reports for the Last 24 Hours: Microbiology 08/14/21 07:48 Blood Blood Culture - Final NO GROWTH AFTER 5 DAYS 08/14/21 07:48 Blood Blood Culture - Final NO GROWTH AFTER 5 DAYS - Constitutional no acute distress - *Routine Respiratory Exam Present: wheezes (Slightly improved) - *Routine Cardiovascular Exam Present: RRR - *Routine Abdominal Exam Present: soft, normoactive bowel sounds. Absent: tenderness - *Routine Extremities Exam Absent: cyanosis, clubbing, edema - *Routine Skin Exam Present: warm. Absent: rash - *Routine Neurological Exam Present: alert, oriented X3 Assessment and Plan (1) Pneumonia due to COVID-19 virus Status: Acute Category: Medical Code(s): U07.1 - COVID-19; J12.82 - Pneumonia due to coronavirus disease 2019 (2) Respiratory failure with hypoxia Status: Acute Qualifiers: Chronicity: acute Qualified Code(s): J96.01 - Acute respiratory failure with hypoxia Category: Medical Code(s): J96.91 - Respiratory failure, unspecified with hypoxia (3) Chest pain Status: Acute Qualifiers: Chest pain type: other chest pain Qualified Code(s): R07.89 - Other chest pain Category: Medical Code(s): R07.9 - Chest pain, unspecified (4) CAD (coronary artery disease) Status: Chronic Qualifiers: Coronary Disease-Associated Artery/Lesion type: [place] artery [place] vs. transplanted heart: [place] heart Associated angina: with other forms of angina Qualified Code(s): I25.118 - Atherosclerotic heart disease of [place] coronary artery with other forms of angina pectoris Category: Medical Code(s): I25.10 - Atherosclerotic heart disease of [place] coronary artery without angina pectoris (5) Diabetes mellitus Status: Chronic Qualifiers: Diabetes mellitus type: type 2 Diabetes mellitus alf insulin use: without alf use Diabetes mellitus complication status: without complication Qualified Code(s): E11.9 - Type 2 diabetes mellitus without complications Category: Medical Code(s): E11.9 - Type 2 diabetes mellitus without complications (6) HLD (hyperlipidemia) Status: Chronic Qualifiers: Hyperlipidemia type: mixed hyperlipidemia Qualified Code(s): E78.2 - Mixed hyperlipidemia Category: Medical Code(s): E78.5 - Hyperlipidemia, unspecified (7) HTN (hypertension) Status: Chronic Qualifiers: Hypertension type: essential hypertension Category: Medical Code(s): I10 - Essential (primary) hypertension - Assessment and
--- NOTE | 2021-08-20 10:32 | HMH.ACPN ---
Internal Medicine - PN: Subj *Date: 08/20/21 *Time: 10:32 Exam Vital signs and Labs for Last 24 Hours: Temp Pulse Resp BP Pulse Ox 98.5 F 98 H 22 127/72 92 L 08/20/21 08:00 08/20/21 08:00 08/20/21 08:00 08/20/21 08:00 08/20/21 10:23 Laboratory Results - last 24 hr 08/19/21 11:12: POC Glucose 210 H 08/19/21 16:30: POC Glucose 262 H 08/19/21 20:18: POC Glucose 238 H 08/20/21 06:30: Sodium 141, Potassium 5.1 D, Chloride 106, Carbon Dioxide 31 H, Anion Gap 9.1, BUN 27 H, Creatinine 1.00, Estimated Creat Clear 79, Estimated GFR 72, Est GFR ( Amer) 87 D, Glucose 159 H, Calcium 8.8, Total Bilirubin 1.0, AST 39, ALT 34, Alkaline Phosphatase 72, C-Reactive Protein 46.1 H, Total Protein 5.1 L, Albumin 2.9 L D, Globulin 2.2, Albumin/Globulin Ratio 1.3 I & O for Last 24 hours: Intake & Output 08/17/21 08/18/21 08/19/21 08/20/21 23:59 23:59 23:59 23:59 Intake Total 840 / 840 820 / 820 460 / 460 360 / 360 Output Total 275 / 775 2100 / 2100 500 / 800 300 / 300 Balance 565 / 65 -1280 / -1280 -40 / -340 60 / 60 Weight 97.9 kg 97.522 kg 91.1 kg 94.755 kg Microbiology Reports for the Last 24 Hours: Microbiology 08/14/21 07:48 Blood Blood Culture - Final NO GROWTH AFTER 5 DAYS 08/14/21 07:48 Blood Blood Culture - Final NO GROWTH AFTER 5 DAYS Assessment and Plan (1) Pneumonia due to COVID-19 virus Status: Acute Category: Medical Code(s): U07.1 - COVID-19; J12.82 - Pneumonia due to coronavirus disease 2019 (2) Respiratory failure with hypoxia Status: Acute Qualifiers: Chronicity: acute Qualified Code(s): J96.01 - Acute respiratory failure with hypoxia Category: Medical Code(s): J96.91 - Respiratory failure, unspecified with hypoxia (3) Chest pain Status: Acute Qualifiers: Chest pain type: other chest pain Qualified Code(s): R07.89 - Other chest pain Category: Medical Code(s): R07.9 - Chest pain, unspecified (4) CAD (coronary artery disease) Status: Chronic Qualifiers: Coronary Disease-Associated Artery/Lesion type: [place] artery [place] vs. transplanted heart: [place] heart Associated angina: with other forms of angina Qualified Code(s): I25.118 - Atherosclerotic heart disease of [place] coronary artery with other forms of angina pectoris Category: Medical Code(s): I25.10 - Atherosclerotic heart disease of [place] coronary artery without angina pectoris (5) Diabetes mellitus Status: Chronic Qualifiers: Diabetes mellitus type: type 2 Diabetes mellitus senior care insulin use: without senior care use Diabetes mellitus complication status: without complication Qualified Code(s): E11.9 - Type 2 diabetes mellitus without complications Category: Medical Code(s): E11.9 - Type 2 diabetes mellitus without complications (6) HLD (hyperlipidemia) Status: Chronic Qualifiers: Hyperlipidemia type: mixed hyperlipidemia Qualified Code(s): E78.2 - Mixed hyperlipidemia Category: Medical Code(s): E78.5 - Hyperlipidemia, unspecified (7) HTN (hypertension) Status: Chronic Qualifiers: Hypertension type: essential hypertension Category: Medical Code(s): I10 - Essential (primary) hypertension The patient's infection will respond to the chosen ABx?: Yes Is the patient receiving the right drug, dose, and route?: Yes Could a more targeted ABx be ordered?: No
--- NOTE | 2021-08-20 14:54 | PC.WOUNDNOTE ---
PT IS SITTING UP IN THE CHAIR. ALERT AND ORIENTED X4. EATING AND DRINKING WELL. ATTEMPTED TO WEAN PT TO 4 L NC O2 SATURATION MAINTAINED IN THE 80'S. PT IS ON 6 L NC NOW WITH AN O2 SATURATION 90-94%. LUNG SOUNDS HAVE SCATTERED RHONCHI/WHEEZES. ABDOMEN SOFT/NON TENDER WITH ACTIVE BOWEL SOUNDS. WILL ENCOURAGE USE OF INCENTIVE SPIROMETER. VSS. WILL CONTINUE TO MONITOR.
[2021-08-20 16:24] LABS: POC Glucose,Bedside 187 (70-110)
[2021-08-20 16:24] LABS: POC Glucose,Bedside 292 (70-110)
[2021-08-20 16:46] LABS: POC Glucose,Bedside 174 (70-110)
[2021-08-21] VITALS (10 sets, daily range): BP systolic 103–142; BP diastolic 54–66; PULSE 60–90; RESP 18–21; TEMP 36.4–37; O2SAT 89–97; BMI 29.2
--- NOTE | 2021-08-21 04:17 | PC.NURSE ---
Pt was on 4L O2 NC for part of shift, but started to decline after falling asleep. Pt O2 was titrated to 6L O2 NC where he remains. O2 sats in lower 90s. VSS. Medications administered per mar. Pt denies any discomfort. He stated that he would like for his eye drops to be scheduled like it is at home. No other concerns. Will continue to monitor.
[2021-08-21 08:37] LABS: Chloride 106 mmol/L (98-107); Potassium 4.2 mmoL/L (3.5-5.1); Sodium 141 mmol/L (136-145)
[2021-08-21 08:40] LABS: Alanine Aminotransferase 43 U/L (12-78); Albumin Level 3.6 g/dl (3.5-5.0); Albumin/Globulin Ratio 1.3 (1.1-1.8); Alkaline Phosphatase 98 U/L (38-126); Anion Gap 10.2 mEq/L (5-15); Aspartate Amino Transferase 39 U/L (17-59); Bilirubin,Total 0.9 mg/dl (0.2-1.3); Blood Urea Nitrogen 27 mg/dl (9-20); Calcium 9.3 mg/dl (8.4-10.2); Carbon Dioxide 29 mmol/L (22.0-30.0); Creatinine Clearance Estimated 72 mL/min (50-200); Estimated Glomerular Filt Rate 64 ml/min (>60); GFR (African American) 78 ML/MIN (>60); Globulin 2.7 g/dL (1.3-3.2); Glucose 141 mg/dl (74-100); Total Protein,Serum 6.3 g/dl (6.3-8.2)
--- NOTE | 2021-08-21 11:04 | HMH.ACPN2 ---
Internal Medicine - PN: Subj *Date: 08/21/21 *Time: 11:04 Interval history: Stable on 6 liters of nasal O2. Not tolerating 4 liters. Anxious for discharge. Exam Vital signs and Labs for Last 24 Hours: Temp Pulse Resp BP Pulse Ox 97.6 F 89 21 103/65 L 94 L 08/21/21 08:00 08/21/21 08:00 08/21/21 08:00 08/21/21 08:00 08/21/21 08:00 Laboratory Results - last 24 hr 08/20/21 06:03: POC Glucose 174 H 08/20/21 10:35: POC Glucose 187 H 08/20/21 16:14: POC Glucose 292 H 08/21/21 07:59: Sodium 141, Potassium 4.2, Chloride 106, Carbon Dioxide 29, Anion Gap 10.2, BUN 27 H, Creatinine 1.10, Estimated Creat Clear 72, Estimated GFR 64, Est GFR ( Amer) 78, Glucose 141 H, Calcium 9.3, Total Bilirubin 0.9, AST 39, ALT 43 D, Alkaline Phosphatase 98, Total Protein 6.3, Albumin 3.6 D, Globulin 2.7, Albumin/Globulin Ratio 1.3 I & O for Last 24 hours: Intake & Output 08/18/21 08/19/21 08/20/21 08/21/21 11:59 11:59 11:59 11:59 Intake Total 720 / 720 940 / 940 580 / 580 960 / 960 Output Total 775 / 775 1900 / 1900 700 / 700 1150 / 1150 Balance -55 / -55 -960 / -960 -120 / -120 -190 / -190 Weight 215 lb 200 lb 13.458 oz 208 lb 14.4 oz 208 lb 14.4 oz - Constitutional no acute distress - *Routine HEENT Exam Head: Present: normocephalic Eye: Present: EOMI, PERRL ENT: Present: mucous membranes moist - *Routine Neck Exam Present: supple. Absent: lymphadenopathy - *Routine Respiratory Exam Present: CTA bilaterally (moving air fairly well). Absent: respiratory distress - *Routine Cardiovascular Exam Present: RRR - *Routine Abdominal Exam Present: soft, normoactive bowel sounds. Absent: tenderness - *Routine Extremities Exam Present: edema (trace). Absent: cyanosis, clubbing - *Routine Skin Exam Present: intact, warm. Absent: rash - *Routine Neurological Exam Present: alert, oriented X3 Assessment and Plan (1) Pneumonia due to COVID-19 virus Status: Acute Category: Medical Code(s): U07.1 - COVID-19; J12.82 - Pneumonia due to coronavirus disease 2019 (2) Respiratory failure with hypoxia Status: Acute Qualifiers: Chronicity: acute Qualified Code(s): J96.01 - Acute respiratory failure with hypoxia Category: Medical Code(s): J96.91 - Respiratory failure, unspecified with hypoxia (3) Chest pain Status: Acute Qualifiers: Chest pain type: other chest pain Qualified Code(s): R07.89 - Other chest pain Category: Medical Code(s): R07.9 - Chest pain, unspecified (4) CAD (coronary artery disease) Status: Chronic Qualifiers: Coronary Disease-Associated Artery/Lesion type: [place] artery [place] vs. transplanted heart: [place] heart Associated angina: with other forms of angina Qualified Code(s): I25.118 - Atherosclerotic heart disease of [place] coronary artery with other forms of angina pectoris Category: Medical Code(s): I25.10 - Atherosclerotic heart disease of [place] coronary artery without angina pectoris (5) Diabetes mellitus Status: Chronic Qualifiers: Diabetes mellitus type: type 2 Diabetes mellitus long term acute care registered nurse insulin use: without correction use Diabetes mellitus complication status: without complication Qualified Code(s): E11.9 - Type 2 diabetes mellitus without complications Category: Medical Code(s): E11.9 - Type 2 diabetes mellitus without complications (6) HLD (hyperlipidemia) Status: Chronic Qualifiers: Hyperlipidemia type: mixed hyperlipidemia Qualified Code(s): E78.2 - Mixed hyperlipidemia Category: Medical Code(s): E78.5 - Hyperlipidemia, unspecified (7) HTN (hypertension) Status: Chronic Qualifiers: Hypertension type: essential hypertension Category: Medical Code(s): I10 - Essential (primary) hypertension - Assessment and plan all Dx Assessment and Plan for all problems:: Recheck CXR. Continue to adjust O2 supplementation according to clinical status and saturations.
[2021-08-21 12:12] LABS: POC Glucose,Bedside 192 (70-110)
[2021-08-21 15:55] LABS: POC Glucose,Bedside 213 (70-110)
[2021-08-21 16:21] LABS: POC Glucose,Bedside 264 (70-110)
--- NOTE | 2021-08-21 16:44 | PC.NURSE ---
PT IS RESTING IN BED. NO COMPLAINTS OF DISCOMFORT. O2 SATURATION HAS MAINTAINED 90-94% ON 4 L NC. TOLERATED SITTING UP IN THE CHAIR FOR SEVERAL HOURS THIS SHIFT. EATING AND DRINKING FAIR. PT STATES HE IS REALLY HOPING TO GET TO GO HOME SOON. PT STATES IT IS VERY LONELY SITTING IN THE ROOM W/O ANYONE TO TALK TO. PT TOLERATED TAKING A SHOWER THIS SHIFT. LUNG SOUNDS HAVE SCATTERED WHEEZES/RHONCHI. ABDOMEN SOFT/NON TENDER WITH ACTIVE BOWEL SOUNDS. WILL CONTINUE TO MONITOR.
[2021-08-21 21:58] LABS: POC Glucose,Bedside 164 (70-110)
[2021-08-22] VITALS (8 sets, daily range): BP systolic 106–123; BP diastolic 57–70; PULSE 60–92; RESP 16–21; TEMP 36.6–37.3; O2SAT 87–94; BMI 29.1
[2021-08-22 05:47] LABS: POC Glucose,Bedside 147 (70-110)
--- NOTE | 2021-08-22 05:51 | PC.NURSE ---
Pt has remained on 4L NC this shift. No complaints of soa. Lungs are diminished. Pt had some desats this shift, but recovered on own. Other VSS.Medications administered per mar. Pt requests for eye drops to be administered differently then what is scheduled. Will pass on for pharmacy to consult. No other concerns. Will continue to monitor.
[2021-08-22 08:09] LABS: Basophils % 0.2 % (0.1-2.0); Eosinophils # 0.1 K/mm3 (0.0-0.4); Eosinophils % 0.5 % (0.1-12.0); Hematocrit 40.3 % (42.0-52.0); Hemoglobin 13.1 g/dL (14.1-18.0); Lymphocytes # 1.3 K/mm3 (0.7-4.5); Mean Corpuscular HGB Conc 32.6 g/dL (31.8-35.4); Mean Corpuscular Hemoglobin 28.7 pg (27.0-31.2); Mean Platelet Volume 8.8 fl (7.4-10.4); Monocytes # 0.6 K/mm3 (0.1-1.0); Monocytes % 5.7 % (1.7-9.3); Neutrophils # 8.2 K/mm3 (1.8-7.8); Neutrophils % 80.6 % (37.0-80.0); Platelet Count 390 K/mm3 (142-424); Red Blood Count 4.58 M/mm3 (4.60-6.20); Red Cell Distribution Width 16.1 % (11.5-17.5); White Blood Count 10.2 K/mm3 (4.8-10.8)
[2021-08-22 08:18] LABS: Alanine Aminotransferase 34 U/L (12-78); Albumin Level 3.4 g/dl (3.5-5.0); Albumin/Globulin Ratio 1.4 (1.1-1.8); Alkaline Phosphatase 84 U/L (38-126); Anion Gap 10.2 mEq/L (5-15); Aspartate Amino Transferase 35 U/L (17-59); Bilirubin,Total 0.8 mg/dl (0.2-1.3); Blood Urea Nitrogen 26 mg/dl (9-20); Calcium 9.2 mg/dl (8.4-10.2); Carbon Dioxide 30 mmol/L (22.0-30.0); Chloride 104 mmol/L (98-107); Creatinine Clearance Estimated 72 mL/min (50-200); Estimated Glomerular Filt Rate 64 ml/min (>60); GFR (African American) 78 ML/MIN (>60); Globulin 2.4 g/dL (1.3-3.2); Glucose 148 mg/dl (74-100); Potassium 4.2 mmoL/L (3.5-5.1); Sodium 140 mmol/L (136-145); Total Protein,Serum 5.8 g/dl (6.3-8.2)
--- NOTE | 2021-08-22 09:29 | HMH.ACPN2 ---
Internal Medicine - PN: Subj *Date: 08/22/21 *Time: 09:29 Interval history: Patient would like to go home today. Remains on oxygen at 4 L/min per nasal cannula. He states he is short of breath with exertion. He was up almost all day yesterday sitting in the chair. He has intermittent left anterior brief chest discomfort which she relates to gas. He is eating without difficulty. His bowels move daily. He is voiding QS. He did sleep well last night. Exam Vital signs and Labs for Last 24 Hours: Temp Pulse Resp BP Pulse Ox 98.0 F 92 H 21 123/64 93 L 08/22/21 08:00 08/22/21 08:00 08/22/21 08:00 08/22/21 08:00 08/22/21 08:00 Laboratory Results - last 24 hr 08/20/21 21:00: POC Glucose 192 H 08/21/21 11:33: POC Glucose 213 H 08/21/21 16:08: POC Glucose 264 H 08/21/21 21:37: POC Glucose 164 H 08/22/21 05:38: POC Glucose 147 H 08/22/21 07:44: Sodium 140, Potassium 4.2, Chloride 104, Carbon Dioxide 30, Anion Gap 10.2, BUN 26 H, Creatinine 1.10, Estimated Creat Clear 72, Estimated GFR 64, Est GFR ( Amer) 78, Glucose 148 H, Calcium 9.2, Total Bilirubin 0.8, AST 35, ALT 34, Alkaline Phosphatase 84, Total Protein 5.8 L, Albumin 3.4 L, Globulin 2.4, Albumin/Globulin Ratio 1.4 08/22/21 07:44: WBC 10.2, RBC 4.58 L, Hgb 13.1 L, Hct 40.3 L, MCV 88.0, MCH 28.7, MCHC 32.6, RDW 16.1, Plt Count 390, MPV 8.8, Neut % (Auto) 80.6 H, Lymph % (Auto) 13.0, [place] % (Auto) 5.7, Eos % (Auto) 0.5, Baso % (Auto) 0.2, Neut # (Auto) 8.2 H, Lymph # (Auto) 1.3, [place] # (Auto) 0.6, Eos # (Auto) 0.1, Baso # (Auto) 0.0 I & O for Last 24 hours: Intake & Output 08/19/21 08/20/21 08/21/21 08/22/21 11:59 11:59 11:59 11:59 Intake Total 940 / 940 580 / 580 960 / 960 1200 / 1200 Output Total 1900 / 1900 700 / 700 1150 / 1150 1150 / 1150 Balance -960 / -960 -120 / -120 -190 / -190 50 / 50 Weight 200 lb 13.458 oz 208 lb 14.4 oz 208 lb 14.4 oz 208 lb 6.4 oz - Constitutional no acute distress Comments: Converses with ease - *Routine Respiratory Exam Present: wheezes (Coarse inspiratory and expiratory wheezing) - *Routine Cardiovascular Exam Present: RRR - *Routine Abdominal Exam Present: soft, normoactive bowel sounds. Absent: tenderness - *Routine Extremities Exam Absent: edema, calf tenderness - *Routine Neurological Exam Present: alert, oriented X3 Assessment and Plan (1) Pneumonia due to COVID-19 virus Status: Acute Category: Medical Code(s): U07.1 - COVID-19; J12.82 - Pneumonia due to coronavirus disease 2019 (2) Respiratory failure with hypoxia Status: Acute Qualifiers: Chronicity: acute Qualified Code(s): J96.01 - Acute respiratory failure with hypoxia Category: Medical Code(s): J96.91 - Respiratory failure, unspecified with hypoxia (3) Chest pain Status: Acute Qualifiers: Chest pain type: other chest pain Qualified Code(s): R07.89 - Other chest pain Category: Medical Code(s): R07.9 - Chest pain, unspecified (4) CAD (coronary artery disease) Status: Chronic Qualifiers: Coronary Disease-Associated Artery/Lesion type: [place] artery [place] vs. transplanted heart: [place] heart Associated angina: with other forms of angina Qualified Code(s): I25.118 - Atherosclerotic heart disease of [place] coronary artery with other forms of angina pectoris Category: Medical Code(s): I25.10 - Atherosclerotic heart disease of [place] coronary artery without angina pectoris (5) Diabetes mellitus Status: Chronic Qualifiers: Diabetes mellitus type: type 2 Diabetes mellitus senior living insulin use: without senior living use Diabetes mellitus complication status: without complication Qualified Code(s): E11.9 - Type 2 diabetes mellitus without complications Category: Medical Code(s): E11.9 - Type 2 diabetes mellitus without complications (6) HLD (hyperlipidemia) Status: Chronic Qualifiers: Hyperlipidemia type: mixed hyperlipidemia Qualified Code(s): E78.2
--- NOTE | 2021-08-22 09:35 | DIET.NUTRFU ---
Pt with improved PO intake. >75% consumed at last 5 meals. Glucose 147 and 148 today. Pt with good bowel movements. Will continue to monitor.
--- NOTE | 2021-08-22 10:59 | HMH.PULMPN ---
Internal Medicine - PN: Subj *Date: 08/22/21 *Time: 10:59 Interval history: No acute respiratory vents in the last 48 hours. Patient admits continued improvement in his symptoms. Exam - Constitutional Constitutional:: Present: no acute distress, comfortable - HENMT Exam HENMT: Present: normocephalic - Eye Exam Eyes:: Present: normal appearance both eyes and related structures - Neck Exam Neck:: Present: normal visual inspection - Respiratory Exam Respiratory:: Present: able to speak in complete sentences, no respiratory distress, wheezing. Absent: accessory muscle use - Cardiovascular Exam Cardiac:: Present: S1, S2 - GI Exam GI:: Present: soft - Skin Exam Skin: Present: warm, no rash - Neurological Exam Neurological: Present: alert, awake - Extremities Exam Extremities: Present: no cyanosis, no clubbing, edema Assessment and Plan (1) Pneumonia due to COVID-19 virus Status: Acute Category: Medical Code(s): U07.1 - COVID-19; J12.82 - Pneumonia due to coronavirus disease 2019 (2) Respiratory failure with hypoxia Status: Acute Qualifiers: Chronicity: acute Qualified Code(s): J96.01 - Acute respiratory failure with hypoxia Category: Medical Code(s): J96.91 - Respiratory failure, unspecified with hypoxia (3) Chest pain Status: Acute Qualifiers: Chest pain type: other chest pain Qualified Code(s): R07.89 - Other chest pain Category: Medical Code(s): R07.9 - Chest pain, unspecified (4) CAD (coronary artery disease) Status: Chronic Qualifiers: Coronary Disease-Associated Artery/Lesion type: [place] artery [place] vs. 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 use Diabetes mellitus complication status: without complication Qualified Code(s): E11.9 - Type 2 diabetes mellitus without complications Category: Medical Code(s): E11.9 - Type 2 diabetes mellitus without complications (6) HLD (hyperlipidemia) Status: Chronic Qualifiers: Hyperlipidemia type: mixed hyperlipidemia Qualified Code(s): E78.2 - Mixed hyperlipidemia Category: Medical Code(s): E78.5 - Hyperlipidemia, unspecified (7) HTN (hypertension) Status: Chronic Qualifiers: Hypertension type: essential hypertension Category: Medical Code(s): I10 - Essential (primary) hypertension - Assessment and plan all Dx Assessment and Plan for all problems:: #COVID-19 pneumonia: #Acute hypoxic respiratory failure: Vaccinated with 2 doses. Prior smoker last smoked 15 years ago. Not on any inhalers at baseline. CTA negative for pulmonary embolism however showed diffuse bilateral airspace disease right greater than left. No evidence of leukocytosis. CRP significantly elevated to 303.4. D-dimer at 0.93 Was initiated on levofloxacin along with remdesivir, dexamethasone and baricitinib. CRP improved from 300 and admission to 47. Blood and sputum cultures no growth so far. Completed levofloxacin coursex7 days. Respiratory status significantly improved, he was weaned from high flow nasal cannula to 4 L nasal cannula this morning saturating 92%. He continued to use incentive spirometry. After extensive disc in the clinic and risk-benefit analysis plan was made to discharge the patient all the discharge instructions will be explained to the patient's daughter who will be coming to pick the patient. Have also advised the patient to buy a pulse oximetry before discharge. Plan: Continue nasal cannula oxygen supplementation, 4 L at rest and 6 with exertion to m
--- NOTE | 2021-08-22 11:00 | PC.NURSE ---
room air saturation 87%
--- NOTE | 2021-08-22 11:05 | SW/DCPLANNER ---
Addendum entered by [facility] 08/22/21 13:59: Mary pulliam/ [place] has stated that services will begin this week for this patient. Addendum entered by [facility] 08/22/21 13:37: I spoke with patients whom is agreeable to home health services. Patient information/order has been faxed to [facility]. Patient will discharge home later today. Addendum entered by [facility] 08/22/21 11:20: Jaci pulliam/ [place] has stated that DME will be delivered to patient. Addendum entered by [facility] 08/22/21 11:17: Order has also been faxed to [facility] for a nebulizer machine. Original Note: Patient information/order has been faxed to [facility] for home O2 + portable tank. The plan is for this patient to discharge home later today.
[2021-08-22 11:47] LABS: POC Glucose,Bedside 206 (70-110)
--- NOTE | 2021-08-22 17:29 | PC.NURSE ---
PT IS BEING DISCHARGED HOME WITH OXYGEN AND HOME HEALTH FOR PT/OT. PT KNOWS THAT HE IS STILL WEAK BUT IS VERY EXCITED ABOUT GETTING TO GO HOME. PT WILL BE DISCHARGED HOME WITH O2 AT 4 L. O2 SATURATION HAS MAINTAINED 90-95% ON 4 L NC T/O THE SHIFT.
[2021-08-22 17:33] LABS: POC Glucose,Bedside 223 (70-110)
--- NOTE | 2021-08-28 14:43 | HMH.DCSUM ---
General - General Admission date:: 08/14/21 Discharge date: 08/22/21 HPI HPI: 81 y.o. WM admitted via ER with COVID 19 pneumonia. Was vaccinated against COVID 10 December 2020, Pfizer. States he's been ill for [address] Murphy placed order last week to screen for COVID 19 but the patient did not pursue the lab tests. Positive PCR in ER. Low O2 sats, even to 70's. Has been placed on Vapotherm. He is diabetic and has history of colon resection for colon cancer 2002. Also with CAD with stents. In addition to cough, SOA, patient states he's had some diarrhea and headache. Hospital Course Hospital Course: The patient's chest CTA showed no PE but multilobar pneumonia. There was also a similar size and appearance of the left lower lobe soft tissue mass abutting the left hemidiaphragm. The patient was admitted and started on Covid protocol. He was started on Vapotherm due to increased oxygen requirements. He was started on duo nebs as well as budesonide and cough medication was added. Pulmonology was consulted and wanted the patient continued on Levaquin along with remdesivir and dexamethasone. The left lower lobe lung mass had been evaluated with PET scan as well as a follow-up CT and it remained stable. 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 His blood cultures returned showing no growth. His Vapotherm was weaned gradually throughout the course of his stay. He had a repeat chest x-ray on 08/18/2021 showing emphysematous changes and COVID-19 pneumonitis. He did begin having some swelling and was saline locked and given some Lasix. He remained dyspneic with any movement. He was able to eat. He was switched to 4 L nasal cannula on 08/20/2021, but his sats declined into the 80s and he had to be increased to 6 L with sats improving into the 90s. He was anxious to be discharged. By 08/22/2021 he was able to be weaned to 4 L nasal cannula and had been up almost the entire day sitting in the chair. He had a full course of remdesivir and was followed by pulmonology who felt he could be discharged home on nasal oxygen 4 L at rest and 6 L with exertion. He also wanted him discharged on dexamethasone and Advair. Home nebulizer therapy was also arranged. He will follow-up in the pulmonology clinic. Objective Vital signs: Temp Pulse Resp BP Pulse Ox 98.1 F 68 16 122/59 L 94 L 08/22/21 16:00 08/22/21 16:00 08/22/21 16:00 08/22/21 16:00 08/22/21 16:00 Narrative: - Constitutional no acute distress (more comfortable with Vapotherm) - *Routine HEENT Exam Head: Present: normocephalic Eye: Present: EOMI, PERRL ENT: Present: mucous membranes moist - *Routine Neck Exam Present: supple. Absent: lymphadenopathy - *Routine Respiratory Exam Present: decreased breath sounds. Absent: respiratory distress - *Routine Cardiovascular Exam Present: RRR - *Routine Abdominal Exam Present: soft, tenderness (mild), hernia (ventral diastasis) - *Routine Rectal Exam Rectal:: deferred - *Routine Genitalia Exam Genitalia:: deferred - *Routine Extremities Exam Absent: cyanosis, clubbing, edema - Routine Back/Spine/Pelvis Exam Back/Spine: Present: loss of lumbar lordosis - *Routine Skin Exam Present: warm. Absent: rash - *Routine Neurological Exam Present: alert, oriented X3 DS: Diagnosis - Discharge Diagnosis (1) Pneumonia due to COVID-19 virus Status: Acute (2) Respiratory failure with hypoxia Status: Acute (3) Chest pain Status: Acute (4) CAD (coronary artery disease) Status: Chronic (5) Diabetes mellitus Status: Chronic (6) HLD (hyperlipidemia) Status: Chronic (7) HTN (hypertension) Status: Chronic Discharge Plan - Patient Discharge Instructions ACTIVITY: Limited activity DIET: advance to your usual diet Patient Instructions: Carbohydrate-Counting Diet, DI for Respiratory Failure, DI for COVID-19 (Suspected or Confirmed ), Nutrition and Hydration: K
== END 2021-08-22 17:29 | disposition home health service (06) | DRG 177 ==
LOC: ER 09:58 → 2ND 11:34
PROVIDERS: Internal Medicine Pulmonary Disease; Admitting Provider Family Medicine; Emergency Provider Emergency Medicine; PCP Family Medicine; Visit Provider Family Medicine
DX: U07.1 COVID-19 (principal); J12.82 Pneumonia due to coronavirus disease 2019; J96.01 Acute respiratory failure with hypoxia; J44.0 Chronic obstructive pulmonary disease with (acute) lower respiratory infection; I25.10 Atherosclerotic heart disease of native coronary artery without angina pectoris; E11.9 Type 2 diabetes mellitus without complications; I10 Essential (primary) hypertension; M19.90 Unspecified osteoarthritis, unspecified site; Z95.5 Presence of coronary angioplasty implant and graft; Z87.891 Personal history of nicotine dependence; R91.8 Other nonspecific abnormal finding of lung field; Z79.84 Long term (current) use of oral hypoglycemic drugs; E78.2 Mixed hyperlipidemia; I25.2 Old myocardial infarction
CPT/HCPCS: 36415; 71045; 71275; 80053; 82550; 82962; 83605; 83615; 84484; 85025; 85378; 86140; 86328; 87040; 87070; 87205; 93005; 94640; 94761; 96365; 96375; 99285; C9803; J1956; Q9967; U0003; U0005

== ENCOUNTER → 2021-09-05 16:09 | Outpatient (CLI) | payer MEDICARE, SELFPAY ==
--- NOTE | 2021-09-05 | CA_ITS ---
APPROVED REPORT Left Lower Extremity Venous Study for DVT. 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: ROSI Indications hx-Covid Vein Imaging CFV (L): compressive, spontaneous, phasic, augmentation SFJ (L): compressive, spontaneous, phasic, augmentation FEM (L): compressive, spontaneous, phasic, augmentation POP (L): compressive, spontaneous, phasic, augmentation DFV (L): compressive, spontaneous, phasic, augmentation PTV (L): compressive, spontaneous, phasic, augmentation GSV (L): compressive, spontaneous, phasic, augmentation SSV (L): compressive, spontaneous, phasic, augmentation Peroneals (L):compressive, spontaneous, phasic, augmentation GAS (L): compressive, spontaneous, phasic, augmentation Findings Color flow duplex demonstrates no evidence of DVT of the following left lower extremity Veins:Common Femoral Vein, Popliteal Vein, Femoral Vein, Posterior Tibial Veins, Peroneal Veins, Deep Femoral Vein. Negative for DVT. Conclusion Negative for DVT. Critical Notification Critical Value: No Physician Notified Date: 09/05/2021 Time: 16:32 Electronically signed by : Michele Lyle MD 09/06/2021 17:25:19
--- NOTE | 2021-09-05 16:31 | XR_ITS ---
PROCEDURE INFORMATION: Exam: XR Chest Exam date and time: 09/05/2021 4:31 PM Age: 81 years old Clinical indication: Shortness of breath; Additional info: Covid (tested positive previously); SOA TECHNIQUE: Imaging protocol: XR of the chest. Views: 2 views. COMPARISON: CR XR CHEST PORTABLE 08/18/2021 7:59 AM FINDINGS: Lungs: Persistent patchy bilateral interstitial and airspace opacities, not substantially changed from 08/18/2021. Pleural spaces: Unremarkable. No pleural effusion. No pneumothorax. Heart/Mediastinum: Unremarkable. No cardiomegaly. Bones/joints: Unremarkable. IMPRESSION: Persistent patchy bilateral interstitial and airspace opacities, which may reflect ongoing pneumonia and/or some evolving fibrotic changes.
== END ==
PROVIDERS: PCP Family Medicine; Visit Provider Family Medicine
DX: R60.0 Localized edema (principal); M79.604 Pain in right leg
CPT/HCPCS: 71046; 93971

== ENCOUNTER → 2022-06-05 14:58 | Outpatient (CLI) | payer MEDICARE, SELFPAY ==
--- NOTE | 2022-06-05 14:58 | CT_ITS ---
FINAL REPORT TECHNIQUE: Axial images were obtained from the lung apex to the mid abdomen by computed tomography. Coronal reformatted images were obtained. This study was performed with techniques to keep radiation doses as low as reasonably achievable, (ALARA). Individualized dose reduction techniques using automated exposure control or adjustment of mA and/or kV according to the patient''s size were employed. CLINICAL HISTORY: pulmonary nodule followup COMPARISON: August 14, 2021 FINDINGS: There are multiple calcified mediastinal and and hilar lymph nodes. There is no axillary adenopathy. Heart size is normal. There is severe coronary artery calcifications. There is no pericardial or pleural effusion. Limited images of the upper abdomen demonstrate postoperative changes from cholecystectomy. There are mild vascular calcifications There has been interval improvement in bilateral pulmonary opacities. There is mild to moderate pulmonary scarring. There is a calcification along the left hemidiaphragm. There is a persistent soft tissue mass along the left hemidiaphragm that measures approximately 5.8 x 4.3 cm on the axial images. This is not significantly changed from the prior exam. This finding is favored to be post inflammatory but neoplasm is not excluded. IMPRESSION: Persistent soft tissue mass along the left hemidiaphragm not significantly changed. Favored to be post inflammatory but neoplasm is not excluded. Interval improvement in bilateral pulmonary opacities. Reviewed, Interpreted and Dictated by Jw Ram III, MD Transcribed by Bonita Alicea Authenticated and [facility]
== END ==
PROVIDERS: PCP Family Medicine; Visit Provider Internal Medicine Pulmonary Disease
DX: R91.8 Other nonspecific abnormal finding of lung field (principal)
CPT/HCPCS: 71250

== ENCOUNTER → 2022-08-08 12:48 | Outpatient (CLI) | payer MEDICARE, SELFPAY ==
--- NOTE | 2022-08-08 12:50 | FL_ITS ---
FINAL REPORT CLINICAL HISTORY: esophageal dysphagia 1.20 fluoro time FINDINGS: MODIFIED BARIUM SWALLOW HISTORY: Dysphagia. FINDINGS: Fluoroscopy was provided for the speech pathologist to evaluate the swallowing mechanism. The patient was given several different consistencies of barium while the swallow was visualized fluoroscopically. The report of the speech pathologist should be consulted prior to making dietary decisions. FLUOROSCOPY TIME: 1 minute 20 seconds. TOTAL NUMBER OF IMAGES: 10 cine runs IMPRESSION: Modified barium swallow under fluoroscopic guidance. Please see speech pathologist's report for further details and dietary recommendations. Reviewed, Interpreted and Dictated by Jesus Ramos MD Transcribed by Faith Rosado PA-C Authenticated and . [facility]
--- NOTE | 2022-08-08 13:38 | HMH.SLMBS2 ---
Speech & Language Evaluation Speech/Language Mod Barium Swallow Start: 08/08/22 13:18 Freq: once Status: Complete Protocol: Document 08/08/22 13:18 MICHELLEGENIE (Rec: 08/08/22 13:38 CWSCOTTEIN [id number]) General Information General Current Food Consistency Regular,Thin Liquids Dentition Good Dentition Oxygen Status Room Air Facial Symmetry Symmetrical Patient Orientation Person,Place,Time,Situation Ability to Follow Directions Excellent Communication Ability No Impairment MBS Recommendations Diet Dietary Recommendations Regular,Thin Liquids Treatment/Strategies Strategy/Precaution Recommend Sitting Upright (90 deg), Double Swallow,Small Bites and Sips,Alternate Liquids/Solids Referrals/Other Recommended Referrals GI Consult Mod Barium Swallow Impressions Summary and Impressions Oral Phase Impression No Impairment (WFL) Oral Phase Summary Adequate mastication noted with all consistencies trialed . No significant oral residue. Pharyngeal Phase Impression No Impairment (WFL) Pharyngeal Phase Summary No aspiration or penetration noted during the study. Mild diffuse pharyngeal residue is cleared with a spontaneous secondary swallow, WFL given pt's age. No notable weakness. Retrograde flow of material up through the UES was noted with thin liquids as well as the pill trial, indicative of a possible esophageal dysphagia. Pt would benefit from referral to GI. Speech/Language MBS Assessment/Goals/Plan Assessment Date of Evaluation: 08/08/22 Evaluation Type Initial Certification Assessment/Problems Dysphagia per MD order. Does Patient Qualify for Service No Qualify/Failure Comment Given MBSS results, no further skilled PANEL ASSEMBLER services are warranted at this time. Recommendations PHYSICIAN CERTIFICATION: The specified therapy services are required, authorized, and reviewed every 30 days. Diet Recommendations Normal Liquid Type Recommendations Normal/Thin SL Swallow Guidelines Eat at slow rate,Reflux precautions Dysphagia Swallow Precautions/Strategies Sitting Upright (90 deg), Double Swallow,Small Bites and Sips,Alternate Liquids/Solids Place Food
== END ==
PROVIDERS: PCP Family Medicine; Visit Provider Family Medicine
DX: R13.19 Other dysphagia (principal)
CPT/HCPCS: 70371; 92611

== ENCOUNTER → 2022-08-29 07:46 | Outpatient (CLI) | payer MEDICARE, SELFPAY ==
[2022-08-29 08:40] VITALS: PULSE 62; PULSE 72
== END ==
PROVIDERS: PCP Family Medicine; Visit Provider Internal Medicine Pulmonary Disease
DX: R06.09 Other forms of dyspnea (principal)
CPT/HCPCS: 94060; 94618; 94640; 94727; 94729

== ENCOUNTER → 2023-06-05 15:26 | Outpatient (CLI) | payer MEDICARE, SELFPAY ==
--- NOTE | 2023-06-05 15:37 | CT_ITS ---
FINAL REPORT TECHNIQUE: Axial images were obtained from the lung apex to the mid abdomen by computed tomography. Coronal reformatted images were obtained. This study was performed with techniques to keep radiation doses as low as reasonably achievable, (ALARA). Individualized dose reduction techniques using automated exposure control or adjustment of mA and/or kV according to the patient''s size were employed. CLINICAL HISTORY: 12 month follow-up COMPARISON: 06/05/2022 FINDINGS: There is no axillary adenopathy. Severe coronary artery calcifications are present. There are mild changes of emphysema and mild scarring present. There is no hilar or mediastinal adenopathy. Heart size is normal. There is no pericardial or pleural effusion. There is a partially calcified soft tissue mass contiguous with the left hemidiaphragm, which has been noted on prior CT examination. On today's exam this mass measures 60 x 43 mm in size, stable. There are no new masses or nodules identified. The gallbladder has been surgically resected. IMPRESSION: Partially calcified soft tissue mass contiguous with the left hemidiaphragm remains stable, and is likely inflammatory, with neoplasm less likely. Would consider additional follow-up CT in 12 months. Severe coronary artery calcifications. Reviewed, Interpreted and Dictated by Jw Ram III, MD Transcribed by Chey Swan Authenticated and [facility]
== END ==
PROVIDERS: PCP Family Medicine; Visit Provider Internal Medicine Pulmonary Disease
DX: R91.8 Other nonspecific abnormal finding of lung field (principal)
CPT/HCPCS: 71250

== ENCOUNTER → 2023-08-09 10:35 | Outpatient (CLI) | payer MEDICARE, SELFPAY | PROVIDERS: PCP Family Medicine; Visit Provider Urology | DX: C61 Malignant neoplasm of prostate (principal) ==

== ENCOUNTER → 2023-08-23 14:13 | Outpatient (CLI) | payer MEDICARE, SELFPAY ==
--- NOTE | 2023-08-23 14:13 | CA_ITS ---
APPROVED REPORT EXAM: Comprehensive 2D, Doppler, and color-flow Echocardiogram Mill Attendant: Meaghan Tierney RVT Ht: 5 ft 11 in Wt: 212lbs BSA: 2.16 BP: 134/67 mmHg Indications: DYSPENA,CAD,CM,DIAMOND,DM,COPD,EX SMOKER,HTN,HLD,DIAMOND 2D Dimensions LA Volume 53.00 mL LA Volume Index 24.54 mL/m2 (M/F) 16-34 M-Mode Dimensions RVDd 3.53 cm (0.9-2.6) LA Diam 3.41 cm (1.9-4.0) LVDd 5.31 cm (3.5-5.7) LVDs 3.93 cm (3.5-5.7) IVSd 1.07 cm (0.6-1.1) PWd 0.89 cm (0.6-1.1) EF (Teich) 50.60% FS 26.00% EDV (Teich) 135.90 mL TAPSE 2.59 (<1.7) ESV (Teich) 67.10 mL LV Diastology E Decel Time 300 (160-240 msec) E/A Ratio 0.7 Aortic Valve RAISSA Index 0.67 cm2/m2 AoV Peak Matty. 211.0 (50-130 cm/s) AI PHT 979.00 ms AO Peak GR. 17.80 mmHg AO Mean GR. 9.50 (<5 mmHg) AO VTI 45.9 (18-25 cm) RAISSA (VTI) 1.48 (2.5-4.5 cm2) Mitral Valve MV E Max Matty. 70.0 (40-130 cm/s) MV A Velocity 101.0 (40-130 cm/s) E/A Ratio 0.70 MV PHT 88.0 ms Pulmonary Valve PV Peak Velocity 83.0 (50-150 cm/s) Tricuspid Valve TR P. Velocity 266.00 cm/s RAP Estimate 10.00 mmHg RVSP 38.20 mmHg Left Ventricle The left ventricle is normal size. The left ventricular systolic function is low normal. There is increased LV wall thickness. The left ventricular diastolic function is indeterminate. LVEF is 50%. Right Ventricle The right ventricle is normal size. The right ventricular systolic function is normal. Atria The left atrium size is normal. The right atrium size is normal. Aortic Valve The aortic valve is mildly thickened. Mild aortic stenosis is present. RAISSA by continuity equation is 1.9 cm???. Peak velocity 2.2 m/s. Mean AV gradient 10 mmHg. Max AV gradient 20 mmHg. Mild aortic regurgitation. Mitral Valve The mitral valve leaflets are mildly thickened. No evidence of mitral valve stenosis. Mild mitral regurgitation. Tricuspid Valve The tricuspid valve leaflets are thin and pliable. Trace tricuspid regurgitation. RVSP is 30-35 mmHg. Pulmonic Valve The pulmonary valve is normal in structure. Trace pulmonic regurgitation. Great Vessels The aortic root is normal in size. The ascending aorta is normal in size. IVC is normal in size and collapses >50% with inspiration. Pericardium There is no pericardial effusion. Other Information Study Quality: Fair Conclusion Low normal LV systolic function (LVEF 50%) Mild MR, mild AI. Mild (RAISSA by continuity equation is 1.9 cm???. Peak velocity 2.2 m/s. Mean AV gradient 10 mmHg. Max AV gradient 20 mmHg). Electronically signed by : Moni Mcdaniel MD 08/29/2023 12:29:15
== END ==
LOC: RT 14:13
PROVIDERS: PCP Family Medicine; Visit Provider Nurse Practitioner Family
DX: I25.118 Atherosclerotic heart disease of native coronary artery with other forms of angina pectoris (principal); I11.9 Hypertensive heart disease without heart failure; I42.9 Cardiomyopathy, unspecified; R06.02 Shortness of breath; G47.33 Obstructive sleep apnea (adult) (pediatric); K21.9 Gastro-esophageal reflux disease without esophagitis; Z95.5 Presence of coronary angioplasty implant and graft; E78.2 Mixed hyperlipidemia; E11.9 Type 2 diabetes mellitus without complications; Z79.84 Long term (current) use of oral hypoglycemic drugs; Z87.891 Personal history of nicotine dependence
CPT/HCPCS: 93306

== ENCOUNTER 2023-12-14 12:46 | Outpatient (CLI) | payer MEDICARE, SELFPAY ==
--- NOTE | 2023-12-14 | CA_ITS ---
FINAL REPORT TECHNIQUE: Color Doppler, duplex Doppler and lagunas scale sonography of the bilateral neck arterial vasculature was performed. Velocities were measured in the carotid arteries. Stenosis evaluation based on the validated velocity criteria. CLINICAL HISTORY: l bruit, selma, htn FINDINGS: The peak systolic velocity of the right common carotid artery is 61 cm/s. The peak systolic velocity of the right internal carotid artery is 74 cm/s and end diastolic velocity 20 cm/s. The ICA/CCA ratio is 1.2. A small amount of plaque is present. The right external carotid artery is patent. The right vertebral artery is patent with antegrade flow. The peak systolic velocity of the left common carotid artery is 57 cm/s. The peak systolic velocity of the left internal carotid artery is 108 cm/s and end diastolic velocity 19 cm/s. The ICA/CCA ratio is 1.9. A small amount of plaque is present. The left external carotid artery is patent.The left vertebral artery is patent with antegrade flow. IMPRESSION: Less than 50% bilateral carotid stenoses. Bilateral patent vertebral arteries with antegrade flow. If indicated, CTA or MRA could further evaluate. Reviewed, Interpreted and Dictated by Jw Ram III, MD Transcribed by Missy Easley Authenticated and [facility]
== END 2023-12-14 23:59 ==
LOC: RT 12:48
PROVIDERS: PCP Family Medicine; Visit Provider Family Medicine
DX: I65.23 Occlusion and stenosis of bilateral carotid arteries (principal); Z87.891 Personal history of nicotine dependence
CPT/HCPCS: 93880

== ENCOUNTER 2024-02-08 11:33 | Outpatient (CLI) | payer MEDICARE, SELFPAY ==
--- NOTE | 2024-02-08 | CA_ITS ---
APPROVED REPORT Exam: Pharmacologic Technologist: Ana Paula Denny, Ht: 5 ft 11 in Wt: 214 lbs BSA: 2.17 m2 HR: 57 bpm BP: 126/53 mmHg Rhythm: SINUS BRADYCARDIA Medical History Medical History: HTN, Hyperlipidemia, Diabetes, Smoking Medications: Metformin,,,,, Gabapentin,,,,, Fish Oil,,,,, Losartan,,,,, Pantoprazole,,,,, Atorvastatin,,,,, ADVAIR,,,,, Flaxseed Oil,,,,, CloPIdogrel,,,,, Famotidine,,,,, BisOPROLOL Fumarate,,,,, LanTanaprost,,,,, Allergies: No known drug allergies Cardiac Risk Factors: HTN, , Hyperlipidemia, Diabetes, Smoking Stress Test Details Test: LEXISCAN HR Resting HR: 56 bpm Max Heart Rate (APMHR): 137 bpm Max HR Achieved: 72 bpm Target HR (85% APMHR): 116 bpm % of APMHR: 53 Recovery HR: 63 bpm BP Resting BP: 126/53 mmHg Max BP: 146/65 mmHg Recovery BP: 146.0/65.0 mmHg ECG Resting ECG: SINUS BRADYCARDIA Stress ECG: NO SIGNIFICANT ST CHANGES Arrhythmia: PVCs Clinical Exercise duration: 04:01 min Highest Stage Achieved: Stress ECG Conclusion PT HAD HEAD DISCOMFORT AND MILD SOA OCCASIONAL PVC NO SIGNIFICANT SR CHANGES CONCLUSION: UNREMARKABLE LEXISCAN STRESS MYOVIEW IMAGES REPORTED SEPARATELY Test Summary REST 02:59 . . 56 . 126/ 53 . . Stage 1 01:00 . . 60 . . . . Stage 2 01:00 . . 69 . 136/ 60 . . Stage 3 01:00 . . 63 . 126/ 60 . . Stage 4 01:00 . . 63 . 127/ 59 . . Stage 4 01:01 . . 63 . 127/ 59 . Stop exercise at 04:01 RECOVERY 01:00 . . 66 . 127/ 59 . . RECOVERY 02:00 . . 65 . 127/ 59 . . RECOVERY 03:00 . . 60 . 142/ 58 . . RECOVERY 03:50 . . 63 . 146/ 65 . . Electronically signed by : Moni Mcdaniel MD 02/10/2024 01:36:03
--- NOTE | 2024-02-08 11:34 | NM_ITS ---
APPROVED REPORT Exam: Nuclear Stress Test Indication: CAD, STENTS, H/O SC, DYSRHYTNMIA, HTN, DM, C.P., SOB Patient Location: Outpatient Stress Tech: Ana Paula Denny DC Tech:Angie BaileySKYLER magallanes RT (R)(N)(M) Ht: 5 ft 11 in Wt: 214 lbs HR: 56 bpm BP: 126/53 mmHg BSA: 2.17 m2 Rhythm: NSR TID: 1.24 BMI: 29.8 History: CAD, STENTS, H/O SC, DYSRHYTNMIA, HTN, DM, C.P., SOB Procedure: Patient received 0.4 mg of intravenous Lexiscan, resting heart rate 56 bpm, resting blood pressure 126/53 mmHg, with Lexiscan maximum heart rate achieved was 72 bpm which is % of the maximum predicted heart rate and blood pressure was 146/65 mmHg. With Lexiscan, patient denied any complaint of chest pain. Cardiac Stress and Resting SPECT Images: Cardiac Stress and Resting SPECT images were obtained using technetium 99m Myoview 30.6 mCi stress and 10.24 mCi at rest. Resting and stress imaging in supine and prone positions demonstrate medium sized, moderate, partially reversible perfusion defect in the basal to mid lateral LV wall. There is also increased transient ischemic dilatation ratio (TID 1.24), suggestive of possible multivessel disease or balanced ischemia. Gated imaging demonstrates normal global LV systolic function. There is mild hypokinesis of the basal lateral LV wall. LVEF is calculated at 56%. Conclusion: Medium sized, moderate, partially reversible perfusion defect in the basal to mid lateral LV wall. Findings are suggestive of reversible ischemia. There is also increased transient ischemic dilatation ratio (TID 1.24), suggestive of possible multivessel disease or balanced ischemia. Gated imaging demonstrates normal global LV systolic function. There is mild hypokinesis of the basal lateral LV wall. LVEF is calculated at 56%. Electronically signed by : Moni Mcdaniel MD 02/10/2024 01:38:09
[2024-02-08] MEDS: SODIUM CHLORIDE 0.9% 10ML SYR (RAD ONLY) 10 ML IV ×2 (12:00→13:28)
[2024-02-08] MEDS: REGADENOSON 0.4MG/5ML SYRINGE 0.400000000000000022 MG IV (13:28)
[2024-02-08] MEDS: ISOTOPE MYOVIEW (PER STUDY) 1 DOSE IV (13:28)
== END 2024-02-08 23:59 | disposition home or self-care (01) ==
LOC: RAD 11:34
PROVIDERS: PCP Psychiatry & Neurology Sleep Medicine; Visit Provider Nurse Practitioner Family
DX: R06.02 Shortness of breath; Z95.5 Presence of coronary angioplasty implant and graft; G47.33 Obstructive sleep apnea (adult) (pediatric); E11.9 Type 2 diabetes mellitus without complications; K21.9 Gastro-esophageal reflux disease without esophagitis; I25.10 Atherosclerotic heart disease of native coronary artery without angina pectoris; I10 Essential (primary) hypertension; E78.2 Mixed hyperlipidemia; R07.89 Other chest pain; I42.8 Other cardiomyopathies; Z79.84 Long term (current) use of oral hypoglycemic drugs
CPT/HCPCS: 78452; 93017; 93018; A9502; J2785

== ENCOUNTER 2024-04-03 08:38 | Day surgery (SDC) | payer MEDICARE, SELFPAY ==
[2024-04-03] VITALS (14 sets, daily range): BP systolic 123–140; BP diastolic 54–81; PULSE 51–89; RESP 15–18; TEMP 36.8; O2SAT 91–100; BMI 65.7
--- NOTE | 2024-04-03 07:06 | IR_ITS ---
APPROVED REPORT Patient Location: Outpatient PROCEDURES Left heart catheterization Left ventriculogram Selective coronary angiogram INDICATION Known coronary artery disease, Angina pectoris, Informed consent was obtained prior to the procedure. COMPLICATIONS NONE Estimated Blood Loss: LESS THAN 10 ML TECHNIQUE One percent lidocaine used to anesthetize the right anterior aspect of the wrist. The right radial artery was accessed via the Seldinger technique. A 6 Uzbek sheath was placed in the right radial artery. 2.5 mg of Verapamil, 800 mcg of nitroglycerin, 1mg Lidocaine and 5000 U Heparin were given through the arterial sheath. The papa catheter was also used to perform left heart catheterization, left ventriculogram and selective coronary angiogram. At the end of the procedure the sheath was removed good hemostasis was achieved using Traclet band, patient was transferred to the postop holding area in stable condition. ANGIOGRAPHIC RESULTS The left main artery Large and normal The left anterior descending artery Has proximal concentric 50% stenosis followed by proximal stent which is patent into the mid segment with excellent distal transitioning with minimal in-stent restenosis. The remaining LAD has mild diffuse 10% luminal regularities The circumflex artery Large and dominant with proximal widely patent stent with minimal in-stent restenosis and excellent proximal distal transitioning. The remaining vessel has diffuse 10 to 20% luminal regularities The right coronary artery Nondominant with proximal calcified concentric 50% stenosis followed by mid vessel stent which is widely patent The ZAMUDIO ventriculogram reveals Dilated ventricle with preserved ejection fraction estimated at 55 to 60% The left ventricular end-diastolic pressure 15 mmHg IMPRESSION Coronary arteries as described above 50% proximal LAD disease which is unlikely to be producing patient's resting symptoms Dilated ventricle with preserved ejection fraction Normal LVEDP PLAN 1. Recommend medical management. Should patient have more classic angina which is recalcitrant to medical management the proximal LAD could be revascularized. This lesion is not giving patient resting angina 2. Risk factor modification Electronically signed by : Jerome Steen MD 04/04/2024 12:28:36
[2024-04-03 09:20] LABS: Basophils # 0.1 K/mm3 (0-0.2); Basophils % 0.8 % (0.1-2.0); Eosinophils # 0.9 K/mm3 (0.0-0.4); Eosinophils % 13.3 % (0.1-12.0); Hematocrit 45.3 % (42.0-52.0); Hemoglobin 14.4 g/dL (14.1-18.0); Lymphocytes # 1.4 K/mm3 (0.7-4.5); Lymphocytes % 19.4 % (10-50); Mean Corpuscular HGB Conc 31.8 g/dL (31.8-35.4); Mean Corpuscular Hemoglobin 30.4 pg (27.0-31.2); Mean Corpuscular Volume 95.6 fl (80-94); Mean Platelet Volume 8.8 fl (7.4-10.4); Monocytes # 0.6 K/mm3 (0.1-1.0); Monocytes % 8.7 % (1.7-9.3); Neutrophils # 4.1 K/mm3 (1.8-7.8); Neutrophils % 57.7 % (37.0-80.0); Platelet Count 165 K/mm3 (142-424); Red Blood Count 4.74 M/mm3 (4.60-6.20); Red Cell Distribution Width 16.3 % (11.5-17.5)
[2024-04-03 09:27] LABS: Chloride 111 mmol/L (98-107); Sodium 144 mmol/L (136-145)
[2024-04-03 09:28] LABS: Potassium 4.4 mmoL/L (3.5-5.1)
[2024-04-03 09:30] LABS: Blood Urea Nitrogen 19 mg/dl (9-20); Creatinine Clearance Estimated 50 mL/min (50-200); Estimated Glomerular Filt Rate 58 ml/min (>60); GFR (African American) 70 ML/MIN (>60)
[2024-04-03 09:31] LABS: Anion Gap 9.4 mEq/L (5-15); Calcium 9.5 mg/dl (8.4-10.2); Carbon Dioxide 28 mmol/L (22.0-30.0); Glucose 166 mg/dl (74-100)
[2024-04-03] MEDS: diphenhydrAMINE 50MG/ML VIAL 50 MG IV (12:57)
[2024-04-03] MEDS: LIDOCAINE 1% 10ML MDV 20 ML IJ (12:58)
[2024-04-03] MEDS: HEPARIN 1,000 UNITS/ML 10ML VIAL (CATH LAB) 10000 UNIT IV (12:58)
[2024-04-03] MEDS: 0.9 % SODIUM CHLORIDE 500 ML 25 ML IV (12:58)
[2024-04-03] MEDS: HEPARIN 1,000 UNITS/500ML NS (CATH LAB) 3000 UNIT IV (12:58)
[2024-04-03] MEDS: FENTANYL 100MCG/2ML VIAL 50 MCG IV (12:59)
[2024-04-03] MEDS: MIDAZOLAM HCL 1MG/1ML 5ML VIAL 1 MG IV (12:59)
[2024-04-03] MEDS: IOPAMIDOL-370 (76%);100ML BOTTLE 50 ML IV (13:19)
== END 2024-04-03 15:16 | disposition home or self-care (01) ==
PROVIDERS: PCP Family Medicine; Visit Provider Internal Medicine
DX: R93.1 Abnormal findings on diagnostic imaging of heart and coronary circulation (principal); R06.02 Shortness of breath; I25.118 Atherosclerotic heart disease of native coronary artery with other forms of angina pectoris; Z79.899 Other long term (current) drug therapy; E11.9 Type 2 diabetes mellitus without complications; Z79.84 Long term (current) use of oral hypoglycemic drugs; I10 Essential (primary) hypertension; I42.8 Other cardiomyopathies
CPT/HCPCS: 80048; 85025; 93458; 99152; C1725; C1769; J1644; J2250; J3010; Q9967

== ENCOUNTER 2024-11-15 11:56 | Emergency (ER) | payer MEDICARE, SELFPAY ==
[2024-11-15 11:57] VITALS: BP 120/63; PULSE 79; RESP 18; TEMP 36.9; O2SAT 93; BMI 29.4
[2024-11-15 12:15] LABS: Coronavirus 19, PCR Not Detected (NotDetected); Influenza B, PCR Not Detected (NotDetected)
--- NOTE | 2024-11-15 12:21 | XR_ITS ---
PROCEDURE INFORMATION: Exam: XR Chest Exam date and time: 11/15/2024 12:23 PM Age: 84 years old Clinical indication: Cough; Additional info: Productive cough, copd. L>r wheezing insp TECHNIQUE: Imaging protocol: Radiologic exam of the chest. Views: 2 views. COMPARISON: CT CHEST WO CON 06/05/2023 3:37 PM FINDINGS: Lungs: There are bibasilar infiltrates versus atelectasis. Calcifications overlying the left hemidiaphragm. The upper lung zones are clear. Pleural spaces: Unremarkable. No pleural effusion. No pneumothorax. Heart/Mediastinum: Unremarkable. No cardiomegaly. Bones/joints: Unremarkable. IMPRESSION: Bibasilar infiltrate versus atelectasis.
--- NOTE | 2024-11-15 12:33 | PC.NURSE ---
PT TO XR
[2024-11-15] MEDS: DOXYCYCLINE HYCL 100 MG TABLET PO (12:41)
[2024-11-15] MEDS: DEXAMETHASONE 4MG TABLET 10 MG PO (12:41)
[2024-11-15] MEDS: IPRATROPIUM/ALBUTEROL 3 ML NEB 9 ML IH (12:41)
[2024-11-15 12:51] LABS: Influenza A, PCR Detected (NotDetected)
--- NOTE | 2024-11-15 12:55 | ED_ITS ---
Discharge Plan Disposition Patient Disposition: Home, Self-Care Prescriptions Prescriptions: New prednisone 20 mg tablet 40 mg PO DAILY 5 Days Qty: 10 0RF doxycycline monohydrate 100 mg capsule 100 mg PO BID 5 Days Qty: 10 0RF No Action omega 4-ymn-gcz-fish oil [Fish Oil] 1,000 mg (120 mg-180 mg) capsule 1 cap PO DAILY latanoprost 0.005 % drops 1 drp Eye-Both HS Patient Comments: INSTILL 1 DROP INTO EACH EYE AT BEDTIME nitroglycerin 0.4 mg tablet, sublingual 0.4 mg sublingual PRN Jardiance 10 mg tablet 10 mg PO DAILY pantoprazole 40 mg tablet,delayed release (DR/EC) 40 mg PO DAILY Qty: 90 5RF losartan 50 mg tablet 25 mg PO DAILY bisoprolol fumarate 5 mg tablet 2.5 mg PO DAILY Qty: 90 3RF aspirin [Adult Low Dose Aspirin] 81 mg tablet,delayed release (DR/EC) 81 mg PO DAILY 90 Days Qty: 90 3RF clopidogrel 75 mg tablet See Rx Instructions .ROUTE .COMPLEX Qty: 90 3RF Dose Instruction: Take 1 tablet by mouth once daily Rx Instructions: Take 1 tablet by mouth once daily atorvastatin 40 mg tablet 40 mg PO HS Qty: 90 3RF levalbuterol tartrate [Xopenex HFA] 45 mcg/actuation HFA aerosol inhaler 2 inh inhalation QID PRN (Reason: shortness of breath or wheezing) 90 Days Qty: 15 3RF Jardiance 10 mg tablet 0RF metformin 500 MG tablet 500 mg PO BID gabapentin 600 MG tablet 600 mg PO TID flaxseed oil 1,000 MG capsule 1,000 mg PO DAILY brimonidine 5 ML bottle 1 drp EYE-BOTH BID Rx Instructions: HAS FILLED BRIMONIDINE, DORZOLAMIDE-TIMOLOL, AND LANTANOPROST ALL IN THE LAST MONTH. dorzolamide-timolol 10 ML bottle 1 drp EYE-BOTH BID Rx Instructions: HAS FILLED BRIMONIDINE, DORZOLAMIDE-TIMOLOL, AND LANTANOPROST ALL IN THE LAST MONTH. zinc sulfate 220 MG capsule 220 mg PO DAILY Qty: 100 0RF dexamethasone 6 MG tablet 6 mg PO DAILY Qty: 10 1RF Referrals Follow up/Referrals: Mauricio Durham MD [Primary Care Provider] - See instructions Activity Restrictions/Add. Instructions Additional Instructions/Restrictions: Call your family doctor to establish care for this visit to the emergency depa rtment and schedule follow-up within 48 hours to ensure improvement. If you have any worsening of your condition or any other concerning signs or symptoms, return to the emergency department or your primary care doctor for further evaluation. Prednisone each morning for the next 5 days. Doxycycline twice daily for the next 5 days. Clinical Impressions Clinical Impression: Acute exacerbation of chronic obstructive pulmonary disease, Influenza A Print Language Print Language: Ukrainian Discharge ED Provider: Raleigh Patton General Adult HPI General Chief complaint: Upper Respiratory Infection Stated complaint: Body aches, headache, fever, cough, congestion Time Seen by Provider: 11/15/24 11:58 Mode of Arrival: Ambulatory Source of Information: Patient Limitations: No Limitations Description of Symptoms (Recalled from ER Triage Doc. by RN): Reports flu like symptoms. States he has had a cough and congestion for a few days. States he took an at home COVID test that was negative. History of Present Illness HPI narrative: Please note that above description of symptoms, in this electronic medical record under categorization of recalled from ER triage doctor by RN are reflective of an initial nursing assessment, however, is not reflective of my full history and physical exam that was personally taken and clarified. Consequentially, this preceding description of symptoms, which may include the patient's categorized chief complaint in the EMR, do not reflect my personal clinical impression, and the ultimate description of history of present illness and patient stated complaints should be deferred to this section of the note. Unless stated otherwise or congruent with this section of the note, additional signs, symptoms, or incongruence should be interpreted as inaccurate with my clinical impression. Related Data Home Medications ?Medication ?Instructions ?Recorded ?Confirmed omega 7-mag-hwu-fish oil 1,000 mg 1 cap PO DAILY Supplement 10/24/17 10/15/24 (120 mg-180 mg) capsule (Fish Oil) brimonidine 0.2 % eye drops 1 drp Eye-Both BID Glaucoma 08/14/21 10/15/24 dorzolamide 22.3 mg-timolol 6.8 1 drp Eye-Both BID Glaucoma 08/14/21 10/15/24 mg/mL eye drops flaxseed oil 1,000 mg capsule 1,000 mg PO DAILY Supplement 11/21/21 01/22/25 gabapentin 600 mg tablet 600 mg PO TID NEUROPATHY 08/14/21 10/15/24 metformin 500 mg tablet 500 mg PO BID Diabetes 08/14/21 10/15/24 latanoprost 0.005 % eye drops 1 drp Eye-Both HS 02/06/23 10/15/24 nitroglycerin 0.4 mg sublingual 0.4 mg sublingual PRN 02/06/23 10/15/24 tablet empagliflozin 10 mg tablet 10 mg PO DAILY 04/14/24 10/15/24 (Jardiance) losartan 50 mg tablet 25 mg PO DAILY 10/15/24 10/15/24 Previous Rx's ?Medication ?Instructions ?Recorded dexamethasone 6 mg tablet 6 mg PO DAILY #10 tabs 08/22/21 zinc sulfate 50 mg zinc (220 mg) 220 mg (4.4 x 50 mg zinc (220 mg)) 08/22/21 capsule PO DAILY #100 caps aspirin 81 mg tablet,delayed 81 mg PO DAILY Heart disease 90 08/09/23 release (Adult Low Dose Aspirin) days #90 tabs atorvastatin 40 mg tablet 40 mg PO HS Cholesterol #90 tabs 02/07/24 clopidogrel 75 mg tablet See Rx Instructions .Route 02/07/24 .COMPLEX #90 tabs pantoprazole 40 mg tablet,delayed 40 mg PO DAILY #90 tabs 04/14/24 release levalbuterol tartrate 45 2 inh inhalation QID PRN shortness 07/30/24 mcg/actuation aerosol inhaler of breath or wheezing 90 days #15 (Xopenex HFA) grams bisoprolol fumarate 5 mg tablet 2.5 mg (1/2 x 5 mg) PO DAILY #90 10/15/24 tabs doxycycline monohydrate 100 mg 100 mg PO BID 5 days #10 caps 11/15/24 capsule prednisone 20 mg tablet 40 mg (2 x 20 mg) PO DAILY 5 days 11/15/24 #10 tabs Allergies Allergy/AdvReac Type Severity Reaction Status Date / Time No Known Allergies Allergy Verified 10/15/24 13:45 [facility] Disclaimer: The information contained in this section may have been updated after the patient was seen, as this information can be updated by other users. Medical History Abnormal findings on diagnostic imaging of heart and coronary circulation CAD (coronary artery disease) HLD (hyperlipidemia) GERD (gastroesophageal reflux disease) Diabetes mellitus DIAMOND (obstructive sleep apnea) Cardiomyopathy Angina pectoris Pleural calcification History of 2019 novel coronavirus disease (COVID-19) COPD mixed type Pulmonary emphysema Colon cancer Dyspnea on exertion Lung mass Difficulty swallowing liquids Dyspnea Chest pain HTN (hypertension) Surgical History Stented coronary artery History of heart artery stent History of cataract surgery History of colon surgery Family History Sister Lung cancer Father Emphysema lung Social History Smoking Status: Never smoker alcohol intake: never substance use type: denies use current occupational status: retired Travel in the last 8 weeks: None household members: spouse housing: house caffeine: No Have you lived/traveled outside US in past 30 days?: No Contact w/someone who lives/traveled outside US past 30 days?: No Exposure to someone with infectious disease in past 14 days?: No Do you have a fever (greater than 100.4 F or 38 C)?: Yes Have you tested positive for COVID-19: No Exposed to someone with COVID-19 in past 14 days?: No Do you have a sore throat?: No Do you have a cough?: Yes Do you have any weakness?: Yes Do you have any diarrhea?: No Are you experiencing any unusual bleeding?: No Do you have any muscle aches/pain?: Yes Do you have any abdominal pain?: No Are you experiencing loss of taste or smell?: No Other Medical History Have you received the Flu Vaccine for this season: No Have you received the Pneumonia Vaccine: Yes ROS Obtained: Yes All systems reviewed & no additional complaints except as documented Physical Exam General General appearance: alert Head Head exam: atraumatic and normocephalic Eye Eye exam: Present normal appearance, PERRL and EOMI Neck Neck exam: Present normal inspection, full ROM and trachea midline Respiratory Respiratory exam: Present wheezes and prolonged expiratory phase; Absent respiratory distress, stridor or accessory muscle use Cardiovascular Cardiovascular exam: Present other (Pulses equal symmetric in upper and lower extremities) Abdominal Exam Abdominal exam: Present soft; Absent distention, tenderness or pulsatile mass Extremities Exam Extremities exam: Absent edema Neurological Exam Neurological exam: Present alert, oriented X3 and CN II-XII intact; Absent motor sensory deficit Skin Skin exam: Present warm and dry; Absent diaphoresis or erythema Medical Decision Making Medical Records Medical records reviewed: Yes I reviewed the patient's medical records. Screening: Per USPSTF and CDC recommendations, given the prevalence of disease in our region, it is our hospital?s policy to screen for HIV and viral Hepatitis for all patients aged 18 and over and those with ongoing risk factors. Andi Inquiry Pt receiving controlled substance: No Andi was queried for this patient: No Vital Signs: 11/15/24 11:57 Temperature 98.4 F Temperature Source Oral Pulse Rate [Radial] 79 Respiratory Rate 18 Blood Pressure [Right Arm] 120/63 Blood Pressure Mean [Right Arm] 82 Blood Pressure Source [Right Arm] Automatic Cuff Blood Pressure Position [Right Arm] Sitting 02 Sat by Pulse Oximetry 93 L Oxygen Delivery Method Room Air Lab Data Lab Results 11/15/24 12:06: SARS-CoV-2 (PCR) Not detected, Influenza A Untype (PCR) Detected A, Influenza Type B (PCR) Not detected Orders (Tests/Meds): ED MEDICATIONS Discontinued Medications Generic Name Dose Route Start Last Admin Trade Name Freq PRN Reason Stop Dose Admin Albuterol/Ipratropium 9 ml 11/15/24 12:21 11/15/24 12:41 Ipratropium/Albuterol 3 Ml Neb IH 11/15/24 12:22 9 ml ONCE ONE Administration Dexamethasone 10 mg 11/15/24 12:21 11/15/24 12:41 Dexamethasone 4mg Tablet PO 11/15/24 12:22 10 mg ONCE ONE Administration Doxycycline Hyclate 100 mg 11/15/24 12:21 11/15/24 12:41 Doxycycline Hycl 100 Mg Tablet PO 11/15/24 12:22 100 mg ONCE ONE Administration ORDERS Category Date Time Status CXR 2 view (NOT portable) [XR chest 2V] Stat Exams 11/15/24 12:21 Taken HIV Combo Stat Lab 11/15/24 12:10 Ordered Hepatitis C Ab Qual. W/ RFX Stat Lab 11/15/24 12:10 Ordered Rapid PCR Covid and Flu A/B Stat Lab 11/15/24 12:06 Completed Medical Decision Narrative: This is an 84-year-old male history of hypertension, hyperlipidemia, CAD, COPD not on home oxygen and not currently smoking presenting with shortness of yani th, cough. Patient states that he has had symptoms for 5 days at this point. Cough is new, it is also productive of thick white sputum. No fevers but chills and feels short of breath and winded with exertion. having similar symptoms. History obtained with patient. On arrival, very clinically well- appearing patient. He is normotensive, nontachycardic and nontachypneic. Speaking in full sentences. Lungs are wheezing on inspiration and expiration diffusely, worse on the left posterior lung rahman. Differential includes COPD exacerbation, bronchitis, pneumonia, CHF exacerbation, less likely to be ACS, CT, CHF exacerbation, among others. Viral swab obtained. Chest x-ray obtained. Patient given DuoNebs, Solu-Medrol, doxycycline. On independent interpretation of workup, flu positive, no obvious pneumonia on chest x-ray. I feel this is consistent with flu syndrome, bronchitis, and COPD exacerbation. Because patient at baseline without signs or symptoms of clinical decompensation, deemed appropriate for discharge. Results were relayed to patient who voiced understanding and were agreeable to outpatient management and follow up. I discussed my clinical impression with patient and answered all questions. At this time, the evidence for any other entities in the differential is insufficient to warrant any further testing or ED observation. This was explained as well. Advisory was given that persistent or worsening symptoms require further evaluation. I confirmed the understanding of this discussion. [employer] Admissions Representative disclaimer Much of this encounter note is an electronic millwright instructor spoken language to printed text. Electronic millwright instructor of the spoken language may permit errors. Although I have reviewed the note, some errors may still exist. Critical Care Critical Care Time Critical Care Time: No
[2024-11-15 13:08] VITALS: BP 132/81; PULSE 92; RESP 20; TEMP 37; O2SAT 96
--- NOTE | 2024-11-15 13:22 | PC.NURSE ---
1315- Hourly rounding completed. No needs expressed at this time. Awaiting disposition.
== END 2024-11-15 13:27 | disposition home or self-care (01) ==
PROVIDERS: Emergency Provider Emergency Medicine; PCP Family Medicine
DX: J10.1 Influenza due to other identified influenza virus with other respiratory manifestations (principal); J44.1 Chronic obstructive pulmonary disease with (acute) exacerbation; R50.9 Fever, unspecified; R05.9 Cough, unspecified; R09.81 Nasal congestion; R51.9 Headache, unspecified; M79.10 Myalgia, unspecified site
CPT/HCPCS: 71046; 87636; 99283; J7620; J8540

== ENCOUNTER 2025-03-24 21:44 | Emergency (ER) | payer MEDICARE, SELFPAY ==
--- OUTSIDE RECORDS SUMMARY | 2024-08-18 07:00 | XMS_ITS ---
[facility] [address] [facility] [address] [place] [id number] Care Team Providers Care Restaurant Inspector Name Role Phone Bella Durham Primary Care Provider Allergies No Known Allergies Results Component Value Reference Range Notes Glycohemoglobin A1c (in hous e) Reviewed date:08/19/2024 10:27:27 AM Interpretation: Performing Lab: Notes/Report: glycohemoglobin 7.1% 5 - 6.5 % REASON FOR VISIT 3 month check, Needs labs & flu vaccine Medications Medication SIG (Take, Route, Frequency, Duration) Notes Start Date End Date Status Jardiance 10 MG 1 tablet Orally Once a day; Duration: 30 day(s) Active Losartan Potassium 25 MG 1/2 orally once a day Active Gabapentin 600 MG 1 tab(s) orally 3 ti mes a day; Duration: 30 day(s) 12/10/2023 Active Vitamin E 180 MG (400 UNIT) 1 capsule Or ally Once a day; Duration: 30 day(s) Active Plavix 75 MG 1 tab(s) orally once a day Active Pantoprazole Sodium 40 MG 1 tab(s) orall y once a day Active metFORMIN HCl 500 MG take [address] [facility] twice daily; Duration: 90 days Active Nitroglycerin 0.4 MG 1 tab(s) sublingual ly every 5 mins as needed 2023 Active Atorvastatin Calcium 40 MG 1 tab(s) oral ly at bedtime; Duration: 90 days Active Xalatan 0.005 % 1 gtt in each eye on ce a day (in the evening) Active Aspirin 81 MG 1 tab(s) orally once a day Active Probiotic (Lactobacillus) - as directed Orally Active Bisoprolol Fumarate 5 MG 1 tab(s) orally once a day Active Flaxseed Oil 1200 MG as directed Orally Active Zinc 50 MG 1 tablet Orally Once a day; Duration: 30 day(s) Active Immunizations Vaccine Route Administration Date Status Comme nts Fluzone High Dose (65yr and older) IM Intramuscular 08/18/2024 Administered Vital Signs Blood pressure systolic 110 mm Hg 08/18/20 24 Blood pressure diastolic 56 mm Hg 024 Heart Rate 61 /min 08/18/2024 Height 68 in 08/18/2024 Weight 210.8 lbs 08/18/2024 BMI 32.05 kg/m2 08/18/2024 Encounters Encounter Location Date Provider Diagnosis [facility] [address] [facility] [address] [facility] [address] [place] [id number] 08/18/2024 Bella Durham 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 ; Encounter for immunization Z23 ; Essential hypertension I10 ; Lesion of lung R91.1 and History of prostate cancer Z85.46 Assessments Encounter Date Diagnosis (ICD Code) Assessment Notes Treatment Notes Treatment Clinical Notes Section Notes 08/18/2024 Type 2 diabetes mellitus with other circulatory complication (ICD-10 - E11.59) 08/18/2024 Encounter for immunization (ICD-10 - Z23) 08/18/2024 Essential hypertension (ICD-10 - I10) 08/18/2024 Lesion of lung (ICD-10 - R91.1) 08/18/2024 History of prostate cancer (ICD-10 - Z85.46) Plan Of Treatment Medication Medication Name Sig Start Date Stop Date Notes Losartan Potassium 25 MG 1/2 orally once a day Next Appt Details Follow Up: 3 Months, Reason: Provider Name:Bella Ragsdale er, 06/22/2025 10:00:00 AM, [address] [facility], [address], [place], [id number], Progress Notes * SARIAH SAMUELSDOB:1940 (85 yo M)Acc No.[id number]:08/18/2024 Progress Notes Patient: Romelia SARIAH CRUZ Provider: Bella Durham M.D. :1940 A ge:84 Y S ex:Male Date:08/18/2024 Address:[address] [place] [address] , [place], [id number] Subjective: * Chief Complaints: * 1 . 3 month check. 2. Needs labs & flu vaccine. * HPI: C ardiology: The patient is here today for a check up on Hypertension, Hyperlipidemia, and Diabetes. Pt states he is having weakness all over the past couple weeks. Pt states he is not fasting. Pt states he had a pet scan and show a spot on the lung. Pt states he had a biopsy that was negative for cancer. Pt states he is doing an injection once every 6 months for the Prostate cancer and is wondering if that could be the cause of his weakness. 84 year old male presents with c/o Weakness. Denies : Chest Pain. D enies : Short of Breath. D enies : Dizziness. D enies : Palpitations. * ROS: D ERMATOLOGY: no R shalini. n o H lynne. G ASTROENTEROLOGY: no N ausea. n o V omiting. n o D iarrhea.? U ROLOGY: no D ifficulty urinating. n o B lood in urine. * Medical History: 3 heart stents, Colon cancer, 11/26/2016 LLL lesion on CXR 5cm, Mixed hyperlipidemia, Flu shot 2018, Price, Covid vaccine x2 - November 2020. * Surgical History: c olon cancer 2002, 2 heart stents placed 2014, 1 heart stent placed 11/26/16, stent placed 08/2017, colonoscopy 11/2018. * Hospitalization/Major Diagno stic Procedure: H MH chest pain 11/26/15-11/30/15. * Family History: F ather: . M other: , diagnosed with Diabetes, Heart Disease. 3 brother(s) , 3 sister(s) . 1 son(s) , 2 daughter(s) - healthy. . Brother - heart disease. * Social History: C affeine: yes, frequency:. Marital Status: . Past smoking status: previous history, 1968 quit. Alcohol: No. * Medications: T aking Vitamin E 180 MG (400 UNIT) Capsule 1 capsule Orally Once a day , Taking Zinc 50 MG Tablet 1 tablet Orally Once a day , Taking Flaxseed Oil 1200 MG Capsule as directed Orally , Taking Probiotic (Lactobacillus) - Capsule as directed Orally , Taking Aspirin 81 MG Tablet Delayed Release 1 tab(s) orally once a day , Taking Xalatan 0.005 % Solution 1 gtt in each eye once a day (in the evening) , Taking Losartan Potassium 25 MG Tablet 1 tab(s) orally once a day , Taking Bisoprolol Fumarate 5 MG Tablet 1 tab(s) orally once a day , Taking Plavix 75 MG Tablet 1 tab(s) orally once a day , Taking Pantoprazole Sodium 40 MG Tablet Delayed Release 1 tab(s) orally once a day , Taking Atorvastatin Calcium 40 MG Tablet 1 tab(s) orally at bedtime , Taking Nitroglycerin 0.4 MG Tablet Sublingual 1 tab(s) sublingually every 5 mins as needed , Taking metFORMIN HCl 500 MG Tablet take 1 tablet by mouth twice daily , Taking Gabapentin 600 MG Tablet 1 tab(s) orally 3 times a day , Taking Jardiance 10 MG Tablet 1 tablet Orally Once a day , Discontinued Vitamin B Complex - Capsule as directed Orally , Medication List reviewed and reconciled with the patient * Allergies: N .K.D.A. Objective: * Vitals: W t:210.8, Temp:97.7, BP:110/56, HR:61, O2 Sat:97% on RA, Nurse:SARAH, Ht: 68, Repeat BP:102/60, BMI:32.05. * Examination: G eneral Examination: General Appearance: N AD. H EENT: u nremarkable.?Oral cavity: n o lesions, mucosa moist and WNL, no erythema. N lakeisha: s upple, no lymphadenopathy. C hest: n ormal shape and expansion. H eart: R SR, aortic murmur. L ungs: c lear to auscultation, some fibrotic rales on right. A bdomen: soft and nontender, no organomegaly or masses. N eurologic Exam: I ntact, gait normal. S kin: n ormal, no rash. P eripheral pulses: n ormal . B ack: mild dorsal kyphosis. E xtremities: n o leg edema. Assessment: * Assessment: 1. T ype 2 diabetes mellitus with other circulatory complication - E11.59 (Primary) ?2. E ncounter for immunization - Z23 3 . E ssential hypertension - I10? 4. L esion of lung - R91.1 5 . H istory of prostate cancer - Z85.46 Plan: * Treatment: Value Reference Range g lycohemoglobin 7.1% 5 - 6.5 % * India Forte 08/18/2024 11 :21:18 AM > , Provider reviewed results while patient in office. 2.?Essential hypertension? Decrease Losartan Potassium Tablet, 25 MG, 1/2, orally, once a day, Refills 5.?? * Immunizations: Fluzone High Dose (65yr and older) : 0.7 mL (Route: Intramuscular) given by India Forte on Left Deltoid (Encounter for immunization) * Procedure Codes: 9 4760 PULSE OX, G2211 Complex [place], [address] CAPILLARY BLOOD DRAW, 06240 GLYCATED HEMOGLOBIN TEST, Modifiers: QW * Follow Up: 3 Months * Images: Billing Information: * Visit Code: 62943 Office Visit, Est Pt., Level 4. * Procedure Codes: 62041 PULSE OX. G2211 Complex e/[place]. [address] CAPILLARY BLOOD DRAW. 39869 GLYCATED HEMOGLOBIN TEST. Modifiers: QW * Electronic signature of Bella Durham MD on 03/24/2025 at 09:54 PM EDT Sign off status: Pending * Provider: Bella Durham M.D. Date: 10/18/2023 Generated for Dennisi ng/Fasnehalg/eTransmitting on: 0 03/24/2025 09:54 PM EDT History and Physical Notes * HPI (History of Present Illness) Category Sub-Category Detail Notes Category Not es Cardiology Short of Breath Chest Pain Palpitations Dizziness Weakness Examination Category Sub-Category Detail Notes Category Not es General Examination HEENT: unremarkable Heart: RSR, aortic murmur Lungs: clear to auscultatio n, some fibrotic rales on right Abdomen: soft and nontender, no organomegaly or masses Extremities: no leg edema General Appearance: NAD Skin: normal, no rash Neurologic Exam: Intact, gait normal Neck: supple, no lymphaden opathy Oral cavity: no lesions, mucosa m oist and WNL, no erythema Peripheral pulses: normal Back: mild dorsal kyphosis Chest: normal shape and exp ansion
--- OUTSIDE RECORDS SUMMARY | 2024-11-10 06:00 | XMS_ITS ---
Author Organization [facility] Address [address] [facility] [address] [place] [id number] Care Team Providers Care Robotic Weld Technician Name Role Phone Bella Durham Primary Care Provider Allergies No Known Allergies Results Component Value Reference Range Notes CBC Venipuncture (in house) Reviewed date:11/10/2024 05:23:53 PM Interpretation: Performing Lab: Notes/Report: wbc 7.4 3.5 - 10 lymph 20.3% 15 - 50 mid 6.3% 2 - 15 gran 73.4% 35 - 80 rbc 4.70 3.5 - 5.5 hgb 13.5 11.5 - 16.5 hct 41.0 35 - 55 mcv 87.2 75 - 100 mch 28.7 25 - 35 mchc 32.9 31 - 38 platlet 149 100 - 400 Glycohemoglobin A1c (in hous e) Reviewed date:11/10/2024 05:24:01 PM Interpretation: Performing Lab: Notes/Report: glycohemoglobin 7.1% 5 - 6.5 % P-Comprehensive Metabolic Pa marguerite (CMP) Reviewed date:11/11/2024 09:18:42 AM Interpretation:gluc 164, gfr 54 Performing Lab: Notes/Report: Test performed by [facility] , [address], [place] [address] Silvano Mariano MD, Riveting Machine Operator CLIA: [id number] Sodium 145 135-145 mmol/L Potassium 5.0 3.5-5.3 mmol/L Chloride 108 97-108 mmol/L CO2 26 22-32 mmol/L Glucose 164 65-99 mg/dL BUN 19 8-23 mg/dL Creatinine 1.30 0.70-1.30 mg/dL Calcium 9.6 8.6-10.4 mg/dL eGFR by Creatinine 54 >59 mL/min/1.73m2 Protein 6.3 6.0-8.3 g/dL Albumin 4.2 3.5-5.3 g/dL Alkaline Phosphatase 117 40-129 IU/L ALT (SGPT) 21 <5-55 IU/L AST (SGOT) 22 <5-46 IU/L Bilirubin, Total 0.8 <0.2-1.2 mg/dL A/G Ratio 2.0 1.1-2.5 P-Lipid Panel Reviewed date:11/11/2024 09:18:43 AM Interpretation:trgis 243, hdl 38 Performing Lab: Notes/Report: Test performed by [facility], [address] , [address], [place] [address] Silvano Mariano MD, Riveting Machine Operator CLIA: [id number] Cholesterol 147 <200 mg/dL Triglycerides 243 <150 mg/dL HDL Cholesterol 38 >39 mg/dL Cholesterol / HDL Ratio 3.87 0.00-4.99 Ratio Non-HDL Cholesterol 109 <130 mg/dL LDL Cholesterol (Calculation) 60 <130 mg/dL LDL Cholesterol Levels* Less than 100 mg/dL Optimal 100 to 129 mg/dL Near Optimal/ Above Optimal 130 to 159 mg/dL Borderline High 160 to 189 mg/dL High 190 mg/dL and above Very High * Categories as recommended by the 2004 ATPIII guidelines LDL/HDL Ratio 1.6 <3.3 Ratio LDL Cholesterol Patient History Test Date: 09/10/2023 LDL Results: 70 Units: mg/dL % Change: - Test Date: 11/10/2024 LDL Results: 60 Units: mg/dL % Change: -14% P-Microalbumin/Creatinine, R andom Urine Sample Reviewed date:11/11/2024 09:18:43 AM Interpretation:Normal Performing Lab: Notes/Report: Test performed by [facility] [address] , [place] [address] Silvano Mariano MD, Riveting Machine Operator CLIA: [id number] Albumin/Creatinine Ratio, Urine 28 0-30 ug/m g Microalbumin, Urine, Random 3.7 Creatinine, Urine 133.5 REASON FOR VISIT 3 month check Medications Medication SIG (Take, Route, Frequency, Duration) Notes Start Date End Date Status Probiotic (Lactobacillus) - as directed Orally Active Aspirin 81 MG 1 tab(s) orally once a day Active Xalatan 0.005 % 1 gtt in each eye on ce a day (in the evening) Active Bisoprolol Fumarate 5 MG 1 tab(s) orally once a day Active Plavix 75 MG 1 tab(s) orally once a day Active Flaxseed Oil 1200 MG as directed Orally Active Vitamin E 180 MG (400 UNIT) 1 capsule Or ally Once a day; Duration: 30 day(s) Active Zinc 50 MG 1 tablet Orally Once a day; Duration: 30 day(s) Active Triamcinolone Acetonide 0.1 % 1 application Externally Once a day 11/10/2024 Active Furosemide 20 MG 1 tablet Orally once a day as needed; Duration: 30 day(s) 11/10/2024 Active metFORMIN HCl 500 MG take 1 tablet by [facility] twice daily; Duration: 90 days Active Gabapentin 600 MG 1 tab(s) orally 3 ti mes a day; Duration: 60 days 09/04/2024 Active Losartan Potassium 25 MG 1/2 orally once a day Active Nitroglycerin 0.4 MG 1 tab(s) sublingual ly every 5 mins as needed 2023 Active Jardiance 10 MG 1 tablet Orally Once a day; Duration: 30 day(s) Active Atorvastatin Calcium 40 MG 1 tab(s) oral ly at bedtime; Duration: 90 days Active Pantoprazole Sodium 40 MG 1 tab(s) orall y once a day Active Vital Signs Blood pressure systolic 114 mm Hg 11/10/19 25 Blood pressure diastolic 60 mm Hg 025 Heart Rate 70 /min 11/10/2024 Height 68 in 11/10/2024 Weight 211.4 lbs 11/10/2024 BMI 32.14 kg/m2 11/10/2024 Encounters Encounter Location Date Provider Diagnosis [facility] [address] [phone] 11/10/2024 Bella Durham 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 ; Degenerative disc disease, lumbar M51.36 ; Coronary artery disease involving [place] coronary artery of [place] heart without angina pectoris I25.10 ; History of coronary artery stent placement Z95.5 ; Essential (primary) hypertension I10 ; Localized edema R60.0 and Mild eczema L30.9 Assessments Encounter Date Diagnosis (ICD Code) Assessment Notes Treatment Notes Treatment Clinical Notes Section Notes 11/10/2024 Type 2 diabetes mellitus with other circulatory complication (ICD-10 - E11.59) 11/10/2024 Degenerative disc disease, lumbar (ICD-10 - M51.36) 11/10/2024 Coronary artery disease involving [place] coronary artery of [place] heart without angina pectoris (ICD-10 - I25.10) 11/10/2024 History of coronary artery stent placement (ICD-10 - Z95.5) 11/10/2024 Essential (primary) hypertension (ICD-10 - I10) 11/10/2024 Localized edema (ICD-10 - R60.0) 11/10/2024 Mild eczema (ICD-10 - L30.9) Plan Of Treatment Medication Medication Name Sig Start Date Stop Date Notes Triamcinolone Acetonide 0.1 % 1 applicat ion Externally Once a day 11/10/2024 Furosemide 20 MG 1 tablet Orally once a day as needed; Duration: 30 day(s) 11/10/2024 Jardiance 10 MG 1 tablet Orally Once a day; Duration: 30 day(s) Next Appt Details Follow Up: 3 Months, Reason: Provider Name:Bella Ragsdale er, 06/22/2025 10:00:00 AM, [address], [address], [place], [place], [phone], Progress Notes * SARIAH SAMUELSDOB:1940 (85 yo M)Acc No.[id number]:11/10/2024 Progress Notes Patient: SARIAH SHAVER Provider: Bella Durham M.D. :1940 A ge:84 Y S ex:Male Date:11/10/2024 Address:[address] [place], [place] [address]D[place] [address], CHIDI [facility], [id number] Subjective: * Chief Complaints: * 1 . 3 month check. * HPI: C ardiology: The patient is here for a check up on Hypertension, Hyperlipidemia danie Diabetes. Pt states he is doing good and denies any new concerns today. Pt states he is fasting. Pt states he is out of Jardiance and is needing refills sent to [facility] in [place]. 84 year old male presents with c/o Short of Breath. Denies : Chest Pain. D enies : Dizziness. D enies : Palpitations. * ROS: D ERMATOLOGY: no R shalini. n o H lynne. G ASTROENTEROLOGY: no N ausea. n o V omiting. n o D iarrhea.? U ROLOGY: no D ifficulty urinating. n o B lood in urine. * Medical History: 3 heart stents, Colon cancer, 11/26/2016 LLL lesion on CXR 5cm, Mixed hyperlipidemia, Flu shot 2018, [place], Covid vaccine x2 - November 2020. * Surgical History: c olon cancer 2002, 2 heart stents placed 2014, 1 heart stent placed 3/5/17, stent placed 08/2017, colonoscopy 11/2018. * Hospitalization/Major [...] a day (in the evening) , Taking Bisoprolol Fumarate 5 MG Tablet [...] every 5 mins as needed , Taking Jardiance 10 MG Tablet 1 tablet Orally Once a day , Taking Losartan Potassium 25 MG Tablet 1/2 orally once a day , Taking metFORMIN HCl 500 MG Tablet take 1 tablet by mouth twice daily , Taking Gabapentin 600 MG Tablet 1 tab(s) orally 3 times a day , Medication List reviewed and reconciled with the patient * Allergies: N .K.D.A. Objective: * Vitals: W t:211.4, Temp:97.6, BP:114/60, HR:70, O2 Sat:98% on RA, Nurse:SARAH, Ht: 68, BMI:32.14. * Examination: G eneral Examination: General Appearance: N AD. H EENT: u nremarkable.?Oral cavity: n o lesions, mucosa moist and WNL, no erythema. N lakeisha: s upple, no lymphadenopathy. C hest: n ormal shape and expansion. H eart: R SR, aortic murmur. L ungs: c lear to auscultation. A bdomen: soft and nontender, no organomegaly or masses. N eurologic Exam: I ntact, gait normal. S kin: n ormal, no rash. P eripheral pulses: n ormal . B ack: mild dorsal kyphosis. E xtremities: 1 + leg edema, eczematous rash of lower legs bilaterally.. Assessment: * Assessment: 1. T ype 2 diabetes mellitus with other circulatory complication - E11.59 (Primary) ?2. D egenerative disc disease, lumbar - M51.36 3 . C oronary artery disease involving [place] coronary artery of [place] heart without angina pectoris - I25.10 4. H istory of coronary artery stent placement - Z95.5 5 . E ssential (primary) hypertension - I10 6 . L ocalized edema - R60.0 7 .?Mild eczema - L30.9 Plan: * Treatment: Value Reference Range A lbumin/Creatinine Ratio, Urine 28 0-30 - ug /mg * C reatinine, Urine 133.5 - mg/dL * M icroalbumin, Urine, Random 3.7 - mg/dL * Jayshree Villagran 11/11/2024 9:18: 37 AM >See phone encounter ?LAB: Glycohemoglobin A1c (in house) (Collection Date & Time - 11/10/2024)* Value Reference Range g lycohemoglobin 7.1% 5 - 6.5 % * India Forte 11/10/2024 10: 11:22 AM > , Provider reviewed results while patient in office. 2.?Coronary artery disease involving [place] coronary artery of [place] heart without angina pectoris?LAB: P-Lipid Panel (Collection Date & Time - 11/10/2024 03:30 PM)?trgis 243, hdl 38* Value Reference Range C holesterol / HDL Ratio 3.87 0.00-4.99 - Ratio * C holesterol 147 <200 - mg/dL * H DL Cholesterol 38 L >39 - mg/dL * L DL Cholesterol (Calculation) 60 <130 - mg/d L * L DL/HDL Ratio 1.6 <3.3 - Ratio * N on-HDL Cholesterol 109 <130 - mg/dL * T riglycerides 243 H <150 - mg/dL * Jayshree Villagran 11/11/2024 9:18: 37 AM >See phone encounter 3.?Essential (primary) hypertension?LAB: P-Comprehensive Metabolic Panel (CMP) (Collection Date & Time - 11/10/2024 03:30 PM)?gluc 164, gfr 54* Value Reference Range A /G Ratio 2.0 1.1-2.5 - * A lbumin 4.2 3.5-5.3 - g/dL * A lkaline Phosphatase 117 40-129 - IU/L * A LT (SGPT) 21 <5-55 - IU/L * A ST (SGOT) 22 <5-46 - IU/L * B ilirubin, Total 0.8 <0.2-1.2 - mg/dL * B UN 19 8-23 - mg/dL * C alcium 9.6 8.6-10.4 - mg/dL * C hloride 108 97-108 - mmol/L * C O2 26 22-32 - mmol/L * C reatinine 1.30 0.70-1.30 - mg/dL * G lucose 164 H 65-99 - mg/dL * P otassium 5.0 3.5-5.3 - mmol/L * S odium 145 135-145 - mmol/L * P rotein 6.3 6.0-8.3 - g/dL * e GFR by Creatinine 54 L >59 - mL/min/1.73m2 * SparkleJayshree 11/11/2024 9:18: 37 AM >See phone encounter ?LAB: CBC Venipuncture (in house) (Collection Date & Time - 11/10/2024)* Value Reference Range w bc 7.4 3.5 - 10 * l ymph 20.3% 15 - 50 * m id 6.3% 2 - 15 * g ran 73.4% 35 - 80 * r bc 4.70 3.5 - 5.5 * h gb 13.5 11.5 - 16.5 * h ct 41.0 35 - 55 * m cv 87.2 75 - 100 * m ch 28.7 25 - 35 * m chc 32.9 31 - 38 * p latlet 149 100 - 400 * India Forte 11/10/2024 10: 11:38 AM > , Provider reviewed results while patient in office. 4.?Localized edema? Start Furosemide Tablet, 20 MG, 1 tablet, Orally, once a day as needed, 30 day(s), 30, Refills 1. ?5.?Mild eczema? Start Triamcinolone Acetonide Cream, 0.1 %, 1 application, Externally, Once a day, 60 Gram, Refills0.?? * Procedure Codes: G 2211 Complex e/[place], [address] [place]SE [place], G8752 MOST RECENT SYSTOLIC BP < 140MM HG, G8754 MOST RECENT DIASTOLIC BP < 90MM HG, 3051F HG A1C>EQUAL 7.0%<8.0%, 73244 GLYCATED HEMOGLOBIN TEST, Modifiers: QW , 36567 CBC WITH AUTO DIFF, 64902 VENIPUNCT, ROUTINE*, 09131 SPECIMEN HANDLING * Follow Up: 3 Months * Images: Billing Information: * Visit Code: 94549 Office Visit, Est Pt., Level 4. * Procedure Codes: G2211 Complex e/[place]. [address] P[place]SE OX. G8752 MOST RECENT SYSTOLIC BP < 140MM HG. G8754 MOST RECENT DIASTOLIC BP < 90MM HG. 3051F HG A1C>EQUAL 7.0%<8.0%. 40318 GLYCATED HEMOGLOBIN TEST. Modifiers: QW 02228 CBC WITH AUTO DIFF. 44713 VENIPUNCT, ROUTINE*. 86331 SPECIMEN HANDLING. * Electronic signature of Bella Durham MD on 03/24/2025 at 09:54 PM EDT Sign off status: Pending * Provider: Bella Durham M.D. Date: 0 11/10/2024 Generated for Emiliano renner/Chente/Isiahitting on: 0 03/24/2025 09:54 PM EDT History and Physical Notes * HPI (History of Present Illness) Category Sub-Category Detail Notes Category Not es Cardiology Short of Breath Chest Pain Palpitations Dizziness Examination Category Sub-Category Detail Notes Category Not es General Examination HEENT: unremarkable Heart: RSR, aortic murmur Lungs: clear to auscultatio n Abdomen: soft and nontender, no organomegaly or masses Extremities: 1+ leg edema, eczema tous rash of lower legs bilaterally. General Appearance: NAD Skin: normal, no rash Neurologic Exam: Intact, gait normal Neck: supple, no lymphaden opathy Oral cavity: no lesions, mucosa m oist and WNL, no erythema Peripheral pulses: normal Back: mild dorsal kyphosis Chest: normal shape and exp ansion
--- OUTSIDE RECORDS SUMMARY | 2025-02-02 06:15 | XMS_ITS ---
[facility] [place] [facility] [address] [facility] [address] [facility] [address] [place] [id number] Care Team Providers Care Chicle Grinder Feeder Name Role Phone Bella Durham Primary Care Provider Allergies No Known Allergies Results Component Value Reference Range Notes Glycohemoglobin A1c (in hous e) (Not yet reviewed by provider) Interpretation:7.7% Performing Lab: Notes/Report: 7.7% glycohemoglobin 7.7% 5 - 6.5 % P-Comprehensive Metabolic Pa marguerite (CMP) (Not yet reviewed by provider) Interpretation:cl 110, gluc 333, gfr 57, prot 5.7 Performing Lab: Notes/Report: Test performed by [facility] [address] [place] [address] , [address], [place] [address] Silvano Mariano MD, Director General CLIA: [id number] Sodium 144 135-145 mmol/L Potassium 4.6 3.5-5.3 mmol/L Chloride 110 97-108 mmol/L CO2 25 22-32 mmol/L Glucose 333 65-99 mg/dL BUN 22 8-23 mg/dL Creatinine 1.24 0.70-1.30 mg/dL Calcium 9.1 8.6-10.4 mg/dL eGFR by Creatinine 57 >59 mL/min/1.73m2 Protein 5.7 6.0-8.3 g/dL Albumin 3.7 3.5-5.3 g/dL Alkaline Phosphatase 113 40-129 IU/L ALT (SGPT) 15 <5-55 IU/L AST (SGOT) 19 <5-46 IU/L Bilirubin, Total 0.8 <0.2-1.2 mg/dL A/G Ratio 1.9 1.1-2.5 P-Sed Rate (ESR) (Not yet re viewed by provider) Interpretation:Normal Performing Lab: Notes/Report: Test performed by [facility] [employer] [address] [place] [address] , [address], [place] [address] Silvano Mariano MD, Director General CLIA: [id number] Erythrocyte Sedimentation Rate (ESR), Automated 13 <21 mm/hr REASON FOR VISIT 3 month ckup Medications Medication SIG (Take, Route, Frequency, Duration) Notes Start Date End Date Status Xalatan 0.005 % 1 gtt in each eye on ce a day (in the evening) Active Bisoprolol Fumarate 5 MG 1 tab(s) orally once a day Active Probiotic (Lactobacillus) - as directed Orally Active Aspirin 81 MG 1 tab(s) orally once a day Active Flaxseed Oil 1200 MG as directed Orally Active Jardiance 10 MG 1 tablet Orally Once a day; Duration: 30 day(s) Not-Taking Triamcinolone Acetonide 0.1 % 1 application Externally Once a day 11/10/2024 Active Gabapentin 600 MG 1 tab(s) orally 3 ti mes a day; Duration: 60 days 11/27/2024 Active Zinc 50 MG 1 tablet Orally Once a day; Duration: 30 day(s) Active Vitamin E 180 MG (400 UNIT) 1 capsule Orally Once a day; Duration: 30 day(s) Active metFORMIN HCl 500 MG take 1 tablet by [facility] twice daily; Duration: 90 days Active Furosemide 20 MG 1 tablet Orally once a day as needed; Duration: 30 day(s) 11/10/2024 Active Nitroglycerin 0.4 MG 1 tab(s) sublingual ly every 5 mins as needed 2023 Active Losartan Potassium 25 MG 1/2 orally once a day Active Atorvastatin Calcium 40 MG 1 tab(s) orally at bedtime; Duration: 90 days Active Plavix 75 MG 1 tab(s) orally once a day Active Pantoprazole Sodium 40 MG 1 tab(s) orall y once a day Active Problems Problem Type SNOMED Code ICD Code Onset Dates Problem Status W/U Status Risk Notes Problem Malignant neoplasm of prostate (213783421) Malignant neoplasm of prostate (C61) Active confirmed Problem Cardiomyopathy (73859625) Cardiomyopathy, unspecified type (I42.9) Active confirmed Problem BMI 30+ - obesity (704301557) BMI 32.0-32.9,adult (Z68.32) Active confirmed Vital Signs Blood pressure systolic 110 mm Hg 02/03/20 25 Blood pressure diastolic 54 mm Hg 025 Heart Rate 58 /min 02/02/2025 Height 68 in 02/02/2025 Weight 213.6 lbs 02/02/2025 BMI 32.47 kg/m2 02/02/2025 Encounters Encounter Location Date Provider Diagnosis [facility] [address] [place], [place] [id number] 02/02/2025 Bella Durham 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 ; H/O malignant neoplasm of colon Z85.038 ; Degenerative disc disease, lumbar M51.36 ; Osteoarthritis of spine with radiculopathy, lumbar region M47.26 ; Coronary artery disease involving habematolel coronary artery of habematolel heart without angina pectoris I25.10 ; History of prostate cancer Z85.46 ; Essential (primary) hypertension I10 ; Psoriasis and similar disorder L40.9 ; Spinal stenosis of lumbar region with neurogenic claudication M48.062 ; Chronic obstructive pulmonary disease, unspecified COPD type J44.9 ; Old myocardial infarction I25.2 ; Malignant neoplasm of prostate C61 ; Cardiomyopathy, unspecified type I42.9 ; BMI 32.0-32.9,adult Z68.32 and Degeneration of intervertebral disc of lumbar region, unspecified whether pain present M51.369 Assessments Encounter Date Diagnosis (ICD Code) Assessment Notes Treatment Notes Treatment Clinical Notes Section Notes 02/02/2025 Type 2 diabetes mellitus with other circulatory complication (ICD-10 - E11.59) 02/02/2025 H/O malignant neoplasm of colon (ICD-10 - Z85.038) 02/02/2025 Degenerative disc disease, lumbar (ICD-10 - M51.36) 02/02/2025 Osteoarthritis of spine with radiculopathy, lumbar region (ICD-10 - M47.26) 02/02/2025 Coronary artery disease involving habematolel coronary artery of habematolel heart without angina pectoris (ICD-10 - I25.10) 02/02/2025 History of prostate cancer (ICD-10 - Z85.46) 02/02/2025 Essential (primary) hypertension (ICD-10 - I10) 02/02/2025 Psoriasis and similar disorder (ICD-10 - L40.9) 02/02/2025 Spinal stenosis of lumbar region with neurogenic claudication (ICD-10 - M48.062) 02/02/2025 Chronic obstructive pulmonary disease, unspecified COPD type (ICD-10 - J44.9) 02/02/2025 Old myocardial infarction (ICD-10 - I25.2) 02/02/2025 Malignant neoplasm of prostate (ICD-10 - C61) 02/02/2025 Cardiomyopathy, unspecified type (ICD-10 - I42.9) 02/02/2025 BMI 32.0-32.9,adult (ICD-10 - Z68.32) 02/02/2025 Degeneration of intervertebral disc of lumbar region, unspecified whether pain present (ICD-10 - M51.369) Plan Of Treatment Pending Test Test Name Order Date Glycohemoglobin A1c (in house) P-Comprehensive Metabolic Panel (CMP) P-Sed Rate (ESR) 02/02/2025 Next Appt Details Follow Up: 5 month, Reason: Provider Name:Bella Ragsdale er, 06/22/2025 10:00:00 AM, [address] [facility], [address] , [place], [place], [id number], Progress Notes * SARIAH SAMUELSDOB:1940 (85 yo M)Acc No.[id number]:02/02/2025 Progress Notes Patient: Romelia CRUZ SARIAH Provider: Bella Durham M.D. :1940 A ge:85 Y S ex:Male Date:02/02/2025 Address:[address] [place], [place] [address]DORY CAMACHO, [phone] Subjective: * Chief Complaints: * 1 . 3 month ckup. * HPI: C ardiology: The patient is here for a check up on Hypertension and Diabetes. Pt states he stopped the Jardiance due to rash in his groin area. Pt states he tried the OTC glucocel and it caused diarrhea so he stopped it. Pt states his glucose was 153 yesterday morning. Pt states he checked his BP on Sunday and it was 88/54. Has b een off Furosemide one month. Ran out. Did not refill. Denies : Chest Pain. D enies : [...] CXR 5cm, Mixed hyperlipidemia, Flu shot 2017, [place], Covid vaccine x2 - November 2020. * [...] every 5 mins as needed , Taking Losartan Potassium 25 MG Tablet 1/2 orally once a day , Taking metFORMIN HCl 500 MG Tablet take 1 tablet by mouth twice daily , Taking Furosemide 20 MG Tablet 1 tablet Orally once a day as needed , Taking Triamcinolone Acetonide 0.1 % Cream 1 application Externally Once a day , Taking Gabapentin 600 MG Tablet 1 tab(s) orally 3 times a day , Not-Taking Jardiance 10 MG Tablet 1 tablet Orally Once a day , Medication List reviewed and reconciled with the patient * Allergies: N .K.D.A. Objective: * Vitals: W t: 213.6, Temp: 97.7, BP: 110/54, HR: 58, O2 Sat: 98% on RA, Nurse: SAARH, Ht: 68, BMI:32.47. * Examination: G eneral Examination: General Appearance: N AD. H EENT: s ome right uatsdin area tenderness. O ral cavity: n o lesions, mucosa moist and WNL, no erythema. N lakeisha: ?supple, no lymphadenopathy. C hest: n ormal shape and expansion. H eart: R SR, aortic murmur. L ungs: c lear to auscultation. A bdomen: soft and nontender, no organomegaly or masses. N eurologic Exam: I ntact, gait normal. S kin: n ormal, no rash. P eripheral pulses: n ormal . B ack: mild dorsal kyphosis. E xtremities: trace leg edema, eczematous rash of lower legs is less prominent. Assessment: * Assessment: 1. T ype 2 diabetes mellitus with other circulatory complication - E11.59 2 .?H/O malignant neoplasm of colon - Z85.038 3 . D egenerative disc disease, lumbar - M51.36 4 . O steoarthritis of spine with radiculopathy, lumbar region - M47.26 5 . C oronary artery disease involving habematolel coronary artery of habematolel heart without angina pectoris - I25.10 6 . H istory of prostate cancer - Z85.46? 7. E ssential (primary) hypertension - I10 8 . P soriasis and similar disorder - L40.9 9 . S tate stenosis of lumbar region with neurogenic claudication - M48.062 1 0. C hronic obstructive pulmonary disease, unspecified COPD type - J44.9 1 1. O ld myocardial infarction - I25.2 1 2. Malignant neoplasm of prostate - C61 1 3. C ardiomyopathy, unspecified type - I42.9 1 4. B MT 32.0-32.9,adult - Z68.32 1 5. D egeneration of intervertebral disc of lumbar region, unspecified whether pain present - M51.369 ? Plan: * Treatment: Value Reference Range A /G Ratio 1.9 1.1-2.5 - * A lbumin 3.7 3.5-5.3 - g/dL * A lkaline Phosphatase 113 40-129 - IU/L * A LT (SGPT) 15 <5-55 - IU/L * A ST (SGOT) 19 <5-46 - IU/L * B ilirubin, Total 0.8 <0.2-1.2 - mg/dL * B UN 22 8-23 - mg/dL * C alcium 9.1 8.6-10.4 - mg/dL * C hloride 110 H 97-108 - mmol/L * C O2 25 22-32 - mmol/L * C reatinine 1.24 0.70-1.30 - mg/dL * G lucose 333 H 65-99 - mg/dL * P otassium 4.6 3.5-5.3 - mmol/L * S odium 144 135-145 - mmol/L * P rotein 5.7 L 6.0-8.3 - g/dL * e GFR by Creatinine 57 L >59 - mL/min/1.73m2 2.?Osteoarthritis of spine with radiculopathy, lumbar region?LAB: P-Sed Rate (ESR) (Collection Date & Time - 02/02/2025 12:29 PM)?Normal * Value Reference Range E rythrocyte Sedimentation Rate (ESR), Automated 13 <21 - mm/hr * Labs: * L ab: Glycohemoglobin A1c (in house) (Collection Date & Time - 02/02/2025) 7 .7% Value Reference Range g lycohemoglobin 7.7% 5 - 6.5 % * Yasmin Escobar 02/02/2025 11: 10:57 AM > * Procedure Codes: G 2211 Complex e/[place], [address] GLYCATED HEMOGLOBIN TEST, Modifiers: QW , 3051F HG A1C>EQUAL 7.0%<8.0%, G8752 MOST RECENT SYSTOLIC BP < 140MM HG, G8754 MOST RECENT DIASTOLIC BP < 90MM HG * Follow Up: 5 month * Images: Billing Information: * Visit Code: 19697 Office Visit, Est Pt., Level 4. * Procedure Codes: G2211 Complex e/[place]. [address] GLYCATED HEMOGLOBIN TEST. Modifiers: QW 3051F HG A1C>EQUAL 7.0%<8.0%. G8752 MOST RECENT SYSTOLIC BP < 140MM HG. G8754 MOST RECENT DIASTOLIC BP < 90MM HG. * Electronic signature of Bella Durham MD on 03/24/2025 at 09:54 PM EDT Sign off status: Pending * Provider: Bella Durham M.D. Date: 0 02/02/2025 Generated for Dennisi jud/Chente/eTransmitting on: 0 03/24/2025 09:54 PM EDT History and Physical Notes * HPI (History of Present Illness) Category Sub-Category Detail Notes Category Not es Cardiology Short of Breath Chest Pain Palpitations Dizziness Examination Category Sub-Category Detail Notes Category Not es General Examination HEENT: some right uatsdin are a tenderness Heart: RSR, aortic murmur Lungs: clear to auscultatio n Abdomen: soft and nontender, no organomegaly or masses Extremities: trace leg edema, ecz ematous rash of lower legs is less prominent General Appearance: NAD Skin: normal, no rash Neurologic Exam: Intact, gait normal Neck: supple, no lymphaden opathy Oral cavity: no lesions, mucosa m oist and WNL, no erythema Peripheral pulses: normal Back: mild dorsal kyphosis Chest: normal shape and exp ansion
--- NOTE | 2025-03-24 21:46 | ECG_ITS ---
APPROVED REPORT Exam: Resting ECG HR:78 bpm ECG Measurements Heart Rate 78 AXES HI 205 P 60 QRSd 77 QRS 27 QT 355 T 56 QTc 389 Conclusion SINUS RHYTHM NORMAL ECG no STEMI Electronically signed by : MAMTA SOARES, 03/26/2025 20:49:45
[2025-03-24 21:53] VITALS: BP 156/83; PULSE 77; RESP 12; TEMP 37.2; O2SAT 95; BMI 29.4
--- OUTSIDE RECORDS SUMMARY | 2025-03-24 21:54 | XMS_ITS | Encounter Summary ---
Author Organization [facility] Address [address] [place] [address] Care Team Providers Care Conservation Worker Name Role Phone Javier Durham MD Primary Care Provider [phone] Steve Munguia MD Unavailable [phone] Devendra Garibay MD Unavailable [phone] Encounter Details Date Type Department Care Team (Late st Contact Info) Description 04/01/2024 Orders Only External Location [address] [place] [address] Provider, External Social History Tobacco Use Types Packs/Day Years Used Date Smoking Tobacco: Former Alcohol Use Standard Drinks/Week Comments No 0 (1 standard drink = 0.6 oz pur e alcohol) Sex and Gender Information Value Date Recorded Sex Assigned at Not on file Legal Sex Male 7:00 PM EDT Gender Identity Not on file Sexual Orientation Not on file documented as of this encounter Plan of Treatment Not on file documented as of this encounter Procedures Procedure Name Priority Date/Time Associated Diagnosis Comments PET OUTSIDE IMAGES 04/01/2024 10:37 AM EDT documented in this encounter Results * PET OUTSIDE IMAGES (04/01/2024 10:37 AM EDT) Anatomical Region Laterality Modality Nuclear Medicine 04/01/2024 10:3 7 AM EDT External Provider IMG NM PROCEDURES Final Result documented in this encounter Visit Diagnoses Not on filedocumented in this encounter Care Teams Conservation Worker Relationship Specialty Start Date End Date Javier Durham MD [address] [place] [address] PCP - General 02/04/21 Steve Munguia MD [address] [place] [address] Referring Physician 06/18/24 Devendra Garibay MD [address] [place] [address] Consulting Physician Pulmonary Disease 06/18/24 documented as of this encounter
--- OUTSIDE RECORDS SUMMARY | 2025-03-24 21:55 | XMS_ITS | Patient Health Record ---
[facility] Address [address] [facility] [address] [facility] [address] [id number] Care Team Providers Care Cashier Assistant Name Role Phone Bella Durham Primary Care Provider Desi Mcphersonian Unavailable [phone] Allergies No Known Allergies Results Component Value Reference Range Notes Glycohemoglobin A1c (in hous e) Reviewed date:08/19/2024 10:27:27 AM Interpretation: Performing Lab: Notes/Report: glycohemoglobin 7.1% 5 - 6.5 % CBC Venipuncture (in house) Reviewed date:11/10/2024 05:23:53 [...] 54 Performing Lab: Notes/Report: Test performed by [facility] [address] [place] [address] , [address], [place] [address] Silvano Mariano MD, Fruit D[employer] CLIA: [id number] Sodium 145 135-145 mmol/L Potassium 5.0 3.5-5.3 [...] 38 Performing Lab: Notes/Report: Test performed by [facility], [address] , [place] [address] Silvano Mariano MD, Fruit Dumper CLIA: [id number] Cholesterol 147 <200 mg/dL Triglycerides 243 <150 [...] Interpretation:Normal Performing Lab: Notes/Report: Test performed by [email or web address] [address] [place] [address] , [address], [place] [address] Silvano Mariano MD, Fruit Dumper CLIA: [id number] Albumin/Creatinine Ratio, Urine 28 0-30 ug/m g Microalbumin, Urine, Random 3.7 Creatinine, Urine 133.5 Glycohemoglobin A1c (in hous e) (Not yet reviewed by provider) Interpretation:7.7% Performing Lab: Notes/Report: 7.7% glycohemoglobin 7.7% 5 - 6.5 % P-Comprehensive Metabolic Pa marguerite (CMP) (Not yet reviewed by provider) Interpretation:cl 110, gluc 333, gfr 57, prot 5.7 Performing Lab: Notes/Report: Test performed by [email or web address] [address] [place], [place] [address] [place] , [address], [place] [address] Silvano Mariano MD, Fruit Dumper CLIA: [id number] Sodium 144 135-145 mmol/L Potassium 4.6 3.5-5.3 [...] Interpretation:Normal Performing Lab: Notes/Report: Test performed by [facility] [address] [place] [address] , [address], [place] [address] Silvano Mariano MD, Fruit Dumper CLIA: [id number] Erythrocyte Sedimentation Ra te (ESR), Automated 13 <21 mm/hr Reason For Referral Reason follow-up on lung le lisa Diagnosis 1 Lesion of lung (R91. 1) Referral Organization [facility] Referring Provider First Name Bella Mujica Referring Provider Last Name Herminio Ref[facility] Provider Steve Munguia Referred Provider Specialty Pulmonary Di seases General Notes Jennifer Guillaume 05/19/20 24 3:53:40 PM > faxed to Dr. Munguia Referral Priority Routine Medications Medication SIG (Take, Route, Frequency, Duration) Notes Start Date End Date Status Plavix 75 MG 1 tab(s) orally once a day Active Pantoprazole Sodium 40 MG 1 tab(s) orall y once a day Active Xalatan 0.005 % 1 gtt in each eye on ce a day (in the evening) Active Jardiance 10 MG 1 tablet Orally Once a day; Duration: 30 day(s) Not-Taking Bisoprolol Fumarate 5 MG 1 tab(s) orally once a day Active Probiotic (Lactobacillus) - as directed Orally Active Triamcinolone Acetonide 0.1 % 1 application Externally Once a day 11/10/2024 Active Aspirin 81 MG 1 tab(s) orally once a day Active Zinc 50 MG 1 tablet Orally Once a day; Duration: 30 day(s) Active Flaxseed Oil 1200 MG as directed Orally Active Furosemide 20 MG 1 tablet Orally once a day as needed; Duration: 30 day(s) 11/10/2024 Active Nitroglycerin 0.4 MG 1 tab(s) sublingual ly every 5 mins as needed 2023 Active Vitamin E 180 MG (400 UNIT) 1 capsule Orally Once a day; Duration: 30 day(s) Active Losartan Potassium 25 MG 1/2 orally once a day Active metFORMIN HCl 500 MG take 1 tablet by [facility] twice daily; Duration: 90 days Active Atorvastatin Calcium 40 MG 1 tab(s) orally at bedtime; Duration: 90 days Active Gabapentin 600 MG 1 tab(s) orally 3 ti mes a day; Duration: 60 days 03/04/2025 Active Immunizations Vaccine Route Administration Date Status Comme nts xFluzone High Dose-private (65yr&older) Unknown 07/05/2018 Administered xFluzone High Dose-private (65yr&older) Unknown 06/27/2019 Administered xFluzone (6mos and older)-trivalent Unknown 07/17/2014 Administered xFluzone (6mos and older)-trivalent Unknown 07/15/2015 Administered Tetanus Tdap-Adacel (over 7yrs) IM Intramuscular 09/23/2018 Administered Shingrix Unknown 07/02/2020 Administered Shingrix Unknown 07/02/2020 Administered Shingrix Unknown 10/14/2020 Administered Fluzone High Dose (65yr and older) IM Intramuscular 07/18/2017 Administered Fluzone High Dose (65yr and older) Unknown 07/02/2018 Administered Fluzone High Dose (65yr and older) Unknown 07/08/2020 Administered Fluzone High Dose (65yr and older) Unknown 07/08/2020 Administered Fluzone High Dose (65yr and older) Unknown 08/04/2021 Administered Fluzone High Dose (65yr and older) Unknown 07/20/2022 Administered Fluzone High Dose (65yr and older) Unknown 07/19/2023 Administered Fluzone High Dose (65yr and older) IM Intramuscular 08/18/2024 Administered DT, 7 YEARS OR OLDER Unknown 12/24/1995 Administered COVID 19 Pfizer Unknown 11/22/2020 Administered COVID 19 Pfizer Unknown 12/20/2020 Administered Problems Problem Type SNOMED Code ICD Code Onset Dates Problem Status W/U Status Risk Notes Problem Essential hypertension (22090928) Essential (primary) hypertension (I10) Active confirmed Problem Dizziness (257940808) Dizziness (R42) Active confirmed Problem Essential hypertension (33731864) Essential hypertension (I10) Active confirmed Problem Degeneration of lumbar intervertebral disc (27355753) Degenerative disc disease, lumbar (M51.36) Active confirmed Problem BMI 30+ - obesity (654159792) BMI 32.0-32.9,adult (Z68.32) Active confirmed Problem Malignant neoplasm of prostate (300220244) Malignant neoplasm of prostate (C61) Active confirmed Problem Mixed hyperlipidemia (792774193) Mixed hyperlipidemia (E78.2) Active confirmed Problem Hypertensive heart disease without congestive heart failure (42595696) Hypertensive heart disease without heart failure (I11.9) Active confirmed Problem Old myocardial infarction (3759418) Old myocardial infarction (I25.2) Active confirmed Problem Simple chronic bronchitis (89497482) Simple chronic bronchitis (J41.0) Active confirmed Problem History of malignant neoplasm of prostate (202834046) History of prostate cancer (Z85.46) Active confirmed Problem Gastroesophageal reflux disease without esophagitis (743528965) Gastroesophageal reflux disease without esophagitis (K21.9) Active confirmed Problem COPD - Chronic obstructive pulmonary disease (37821319) Chronic obstructive pulmonary disease, unspecified COPD type (J44.9) Active confirmed Problem Atherosclerotic heart disease of [place] coronary artery without angina pectoris (212009044983149) Coronary artery disease involving [place] coronary artery of [place] heart without angina pectoris (I25.10) Active confirmed Problem Cardiac arrhythmia (712753246) Atrial dysrhythmia (I49.8) Active confirmed Problem Hyperlipidaemia (44492881) Hyperlipidemia, unspecified hyperlipidemia type (E78.5) Active confirmed Problem Occlusion and stenosis of multiple and bilateral cerebral arteries (078240180) Carotid stenosis, bilateral (I65.23) Active confirmed Problem Lumbosacral spondylosis without myelopathy (71006047) Osteoarthritis of spine with radiculopathy, lumbar region (M47.26) Active confirmed Problem Sciatica (85476616) Acute right- sided low back pain with right-sided sciatica (M54.41) Active confirmed Problem Peripheral circulatory disorder associated with diabetes mellitus (303355405) 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) Active confirmed Problem Atherosclerotic heart disease of [place] coronary artery without angina pectoris (040266228599027) Atherosclerosis of [place] coronary artery without angina pectoris, unspecified whether [place] or transplanted heart (I25.10) Active confirmed Problem Angina co-occurrent and due to coronary arteriosclerosis (38455659495082477) Coronary artery disease of [place] artery of [place] heart with stable angina pectoris (I25.118) Active confirmed Problem History of placement of stent for coronary artery disease (situation) (852451085) History of coronary artery stent placement (Z95.5) Active confirmed Problem Acute arthritis (39922195) Acute arthritis (M19.90) Active confirmed Problem Hearing loss (58777587) Bilateral hearing loss, unspecified hearing loss type (H91.93) Active confirmed Problem History of malignant neoplasm of colon (131386231) H/O malignant neoplasm of colon (Z85.038) Active confirmed Problem Cardiomyopathy (23533956) Cardiomyopathy, unspecified type (I42.9) Active confirmed Problem Lesion of lung (463646235) Lesion of lung (R91.1) Active confirmed Problem Neurogenic claudication (263726142) Spinal stenosis of lumbar region with neurogenic claudication (M48.062) Active confirmed Problem Type II diabetes mellitus without complication (305216449) Type 2 diabetes mellitus without complication, unspecified whether remote computer terminal operator insulin use (E11.9) Active confirmed Problem Chronic obstructive pulmonary disease with acute lower respiratory infection (185260839) Chronic obstructive pulmonary disease with (acute) lower respiratory infection (J44.0) Active confirmed Problem COVID-19 (270328852) COVID-19 (U07.1) Active confirmed Problem History of COVID-19 (865047393562752059 ) History of COVID-19 (Z86.16) Active confirmed Problem Esophageal dysphagia (25897784) Esophageal dysphagia (R13.19) Active confirmed Problem Psoriasis (7206634) Psoriasis an d similar disorder (L40.9) Active confirmed Vital Signs Heart Rate 58 /min 02/02/2025 Blood pressure diastolic 54 mm Hg 02/02/2025 Height 68 in 02/02/2025 Blood pressure systolic 110 mm Hg 02/02/2025 Weight 213.6 lbs 02/02/2025 BMI 32.47 kg/m2 02/02/2025 Encounters Encounter Location Date Provider Diagnosis [address] [id number] 05/19/2024 Bella Durham History of prostate cancer Z85.46 ; Lesion of lung R91.1 ; Essential hypertension I10 ; History of coronary artery stent placement Z95.5 ; Coronary artery disease involving [place] coronary artery of [place] heart without angina pectoris I25.10 ; Type 2 diabetes mellitus without complication, unspecified whether penitentiary insulin use E11.9 ; Old myocardial infarction I25.2 ; Chronic obstructive pulmonary disease, unspecified COPD type J44.9 and Spinal stenosis of lumbar region with neurogenic claudication M48.[address] [id number] 08/18/2024 Bella Durham 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 ; Encounter for immunization Z23 ; Essential hypertension I10 ; Lesion of lung R91.1 and History of prostate cancer Z85.[address] [id number] 11/10/2024 Bella Durham 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 ; Degenerative disc disease, lumbar M51.36 ; Coronary artery disease involving [place] coronary artery of [place] heart without angina pectoris I25.10 ; History of coronary artery stent placement Z95.5 ; Essential (primary) hypertension I10 ; Localized edema R60.0 and Mild eczema L30.[address] [id number] 02/02/2025 Bella Durham 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 ; H/O malignant neoplasm of colon Z85.038 ; Degenerative disc disease, lumbar M51.36 ; Osteoarthritis of spine with radiculopathy, lumbar region M47.26 ; Coronary artery disease involving [place] coronary artery of [place] heart without angina pectoris I25.10 ; History [...] lumbar region, unspecified whether pain present M51.369 [facility] [address] [facility] [address] [place], [place] [id number] 07/10/2024 Bella Durham 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 [facility] [address] [place], [place] [id number] 09/04/2024 Adebayo Milroy Spinal stenosis of lumbar region with neurogenic claudication M48.062 [facility] [address] [facility] [address] [place], [place] [id number] 11/11/2024 Bella Durham [facility] [address] [facility] [address] [facility] [address] [place], [place] [id number] 11/27/2024 Bella Durham Spinal stenosis of lumbar region with neurogenic claudication M48.062 [facility] [address] [facility] [address] [place], [place] [id number] 03/04/2025 Adebayo Milroy Spinal stenosis of lumbar region with neurogenic claudication M48.062 Assessments Encounter Date Diagnosis (ICD Code) Assessment Notes Treatment Notes Treatment Clinical Notes Section Notes 05/19/2024 History of prostate cancer (ICD-10 - Z85.46) 05/19/2024 Lesion of lung (ICD-10 - R91.1) 07/10/2024 Type 2 diabetes mellitus with other circulatory complication (ICD-10 - E11.59) 08/18/2024 Encounter for immunization (ICD-10 - Z23) 08/18/2024 Type 2 diabetes mellitus with other circulatory complication (ICD-10 - E11.59) 09/04/2024 Spinal stenosis of lumbar region with neurogenic claudication (ICD-10 - M48.062) 11/10/2024 Degenerative disc disease, lumbar (ICD-10 - M51.36) 11/10/2024 Type 2 diabetes mellitus with other circulatory complication (ICD-10 - E11.59) 11/27/2024 Spinal stenosis of lumbar region with neurogenic claudication (ICD-10 - M48.062) 02/02/2025 Type 2 diabetes mellitus with other circulatory complication (ICD-10 - E11.59) 02/02/2025 H/O malignant neoplasm of colon (ICD-10 - Z85.038) 03/04/2025 Spinal stenosis of lumbar region with neurogenic claudication (ICD-10 - M48.062) 02/02/2025 Degenerative disc disease, lumbar (ICD-10 - M51.36) 11/10/2024 Coronary artery disease involving [place] coronary artery of [place] heart without angina pectoris (ICD-10 - I25.10) 08/18/2024 Essential hypertension (ICD-10 - I10) 05/19/2024 Essential hypertension (ICD-10 - I10) 05/19/2024 History of coronary artery stent placement (ICD-10 - Z95.5) 11/10/2024 History of coronary artery stent placement (ICD-10 - Z95.5) 08/18/2024 Lesion of lung (ICD-10 - R91.1) 02/02/2025 Osteoarthritis of spine with radiculopathy, lumbar region (ICD-10 - M47.26) 02/02/2025 Coronary artery disease involving [place] coronary artery of [place] heart without angina pectoris (ICD-10 - I25.10) 08/18/2024 History of prostate cancer (ICD-10 - Z85.46) 11/10/2024 Essential (primary) hypertension (ICD-10 - I10) 05/19/2024 Coronary artery disease involving [place] coronary artery of [place] heart without angina pectoris (ICD-10 - I25.10) 05/19/2024 Type 2 diabetes mellitus without complication, unspecified whether penitentiary insulin use (ICD-10 - E11.9) 11/10/2024 Localized edema (ICD-10 - R60.0) 02/02/2025 History of prostate cancer (ICD-10 - Z85.46) 11/10/2024 Mild eczema (ICD-10 - L30.9) 02/02/2025 Essential (primary) hypertension (ICD-10 - I10) 05/19/2024 Old myocardial infarction (ICD-10 - I25.2) 05/19/2024 Chronic obstructive pulmonary disease, unspecified COPD type (ICD-10 - J44.9) 02/02/2025 Psoriasis and similar disorder (ICD-10 - L40.9) 02/02/2025 Spinal stenosis of lumbar region with neurogenic claudication (ICD-10 - M48.062) 05/19/2024 Spinal stenosis of lumbar region with neurogenic [...] P-Sed Rate (ESR) 02/02/2025 Next Appt Details Provider Name:Bella Ragsdale er, 06/22/2025 10:00:00 AM, [address] [facility], [address], [place], [place], [id number], Insurance Providers Payer Name Payer Address Payer Phone Subscriber Number Group Number Insured Name Patient Relationship to Insured Coverage Start Date Coverage End Date [employer] (MEDICAR E) [address] [address] [place] [address] [phone] [id number] [id number] SAMUELS Self - patient is the insured Medical (General) History Medical History History ICD Code 3 heart stents colon cancer 11/26/2016 LLL lesion on CXR 5cm Mixed hyperlipidemia Flu shot 2017, [place] Covid vaccine x2 - November 2020 Surgical History Surgery Date(Month/Year) colon cancer 2002 2 heart stents placed 2014 1 heart stent placed 11/26/16 stent placed 08/2017 colonoscopy 11/2018 Hospitalization History Reason Date(Month/Year) [facility] chest pain 11/26/15-11/30/15
--- OUTSIDE RECORDS SUMMARY | 2025-03-24 21:55 | XMS_ITS | Clinical Summary ---
Author Organization Healthcare Address [address] [place] [address] Care Team Providers Care Supervisor Tree Trimming Name Role Phone Javier Durham MD Primary Care Provider [phone] Steve Munguia MD Unavailable [phone] Devendra Garibay MD Unavailable [phone] Allergies No known active allergies Medications clopidogrel (Plavix) 75 MG tablet Take 1 tablet (75 mg) by mouth 1 (one) time each day. Active aspirin 81 MG EC tablet Take 1 tablet (81 mg) by mouth Daily. 08/09/2023 Active Family History Medical History Relation Name Comments Hypercholesterolemia Brother 1 Hypertension Brother 2 Heart attack Brother 3 Conversions - Other Brother 4 S/P hiren nary artery stent placement Conversions - Other Father Emphysem a of lung Heart failure Father Hypertension, benign Father Alzheimer's disease Mother Diabetes Mother Hypertension Mother Hypercholesterolemia Sister 1 Hypertension Sister 2 Relation Name Status Comments Brother 1 Brother 2 Brother 3 Brother 4 Father Mother Sister 1 Sister 2 Social History Tobacco Use Types Packs/Day Years Used Date Smoking Tobacco: Former Passive Smoke Exposure: Never Smokeless Tobacco: Never Tobacco Cessation:Counseling Given: Not Answered Alcohol Use Standard Drinks/Week Comments No 0 (1 standard drink = 0.6 oz pur e alcohol) PHQ-2 Answer Date Recorded Patient Health Questionnaire-2 Score 0 07/18/2024 Sex and Gender Information Value Date Recorded Sex Assigned at Not on file Legal Sex Male 7:00 PM EDT Gender Identity Not on file Sexual Orientation Not on file Last Filed Vital Signs Vital Sign Reading Time Taken Comments Blood Pressure 120/54 07/24/2024 2:00 PM EDT Pulse 53 07/24/2024 2:00 PM EDT Temperature 36.9 C (98.4 F) 07/24/2024 11:17 AM EDT Respiratory Rate 12 07/24/2024 2:00 PM EDT Oxygen Saturation 93% 07/24/2024 2:00 PM EDT Inhaled Oxygen Concentration - - Weight 93.5 kg (206 lb 2.1 oz) 07/24/2024 8:44 A M EDT Height 180.3 cm (5' 11 ) 07/24/2024 8:44 AM EDT Body Mass Index 28.75 07/24/2024 8:44 AM EDT Plan of Treatment Health Maintenance Due Date Last Done Comments [facility]-Medicare Annual Wellness (AWV) 1941 [facility]-/Child/Adol SDOH Screenings 1941 [facility]- SDOH Screenings 1959 [facility]-Adult SDOH Screenings 1959 [facility]-Pneumococcal Vaccine: 50+ Years (1 of 2 - PCV) 01/02/1960 [facility]-RSV Vaccine: 60+ Years or (1 - 1-dose 75+ series) 01/02/2016 [id number] Vaccine (3 - season) 2024 12/20/2020, 11/22/2020 [facility]-Influenza Vaccine (Season Ended) 2025 07/19/2023, 07/20/2022, 08/04/2021, Additional history exists [facility]-Depression Screening 07/18/2025 07/18/2024 [facility]-DTaP,Tdap,and Td Vaccines (2 - Td or Tdap) 09/23/2028 09/23/2018, 12/24/1995 [facility]-Zoster Vaccines Completed 10/14/2020, [facility]-Obesity Intervention Completed 07/24/2024, 06/25 HPV Vaccines Aged Out No longer eligi ble based on patient's age to complete this topic [facility]-HIB Vaccines Aged Out No longer e ligible based on patient's age to complete this topic [facility]-Hepatitis A Vaccines Aged Out No longer eligible based on patient's age to complete this topic [facility]-IPV Vaccines Aged Out No longer e ligible based on patient's age to complete this topic [facility]-Rotavirus Vaccines Aged Out No lo nger eligible based on patient's age to complete this topic Insurance [employer] Advance Directives * Full Code (Latest Code Status on File) Date Activated Date Inactivated Comments 07/24/2024 11:14 AM 07/25/2024 2:40 AM Question Answer Comments Patient has decision-making capacity? Yes Care Teams Supervisor Tree Trimming Relationship Specialty Start Date End Date Javier Durham MD [address] [place] [address] PCP - General 02/04/21 Steve Munguia MD [address] [place] [address] Referring Physician 06/18/24 Devendra Garibay MD [address] [place] [address] Consulting Physician Pulmonary Disease 06/18/24
[2025-03-24 22:01] LABS: Hematocrit 36.8 % (42.0-52.0); Hemoglobin 12.0 g/dL (14.1-18.0); Immature Granulocytes % 0.4 %; Mean Corpuscular HGB Conc 32.6 g/dL (31.8-35.4); Mean Corpuscular Hemoglobin 29.1 pg (27.0-31.2); Mean Corpuscular Volume 89.3 fl (80-94); Nucleated Red Blood Cells % 0 %; Platelet Count 141 K/mm3 (142-424); Red Blood Count 4.12 M/mm3 (4.60-6.20); Red Cell Distribution Width-SD 48.6 fL; White Blood Count 8.0 K/mm3 (4.8-10.8)
[2025-03-24 22:03] LABS: Albumin Level 4.0 g/dl (3.5-5.0); Chloride 105 mmol/L (98-107); Sodium 139 mmol/L (136-145)
--- NOTE | 2025-03-24 22:03 | XR_ITS ---
PROCEDURE INFORMATION: Exam: XR Chest Exam date and time: 03/24/2025 10:14 PM Age: 85 years old Clinical indication: Other: Chest pain TECHNIQUE: Imaging protocol: Radiologic exam of the chest. Views: 1 view. COMPARISON: CR XR CHEST 2V 11/15/2024 12:23 PM FINDINGS: Lungs: Nonspecific bibasilar opacities, favoring atelectasis or pneumonia. Pleural spaces: No pneumothorax. Heart/Mediastinum: Unremarkable cardiomediastinal silhouette. Bones/joints: No acute osseous findings. IMPRESSION: Nonspecific bibasilar opacities, favoring atelectasis or pneumonia. Recommend imaging follow-up until complete resolution.
[2025-03-24 22:04] LABS: Potassium 4.6 mmoL/L (3.5-5.1)
[2025-03-24] MEDS: ASPIRIN 81MG CHEWABLE TABLET 324 MG PO (22:05)
[2025-03-24 22:06] LABS: Alanine Aminotransferase 19 U/L (12-78); Anion Gap 14.6 mEq/L (5-15); Aspartate Amino Transferase 27 U/L (17-59); Bilirubin,Total 1.1 mg/dl (0.2-1.3); Blood Urea Nitrogen 21 mg/dl (9-20); Carbon Dioxide 24 mmol/L (22.0-30.0); Creatinine Clearance Estimated 68 mL/min (50-200); Creatinine,Serum 1.10 mg/dl (0.66-1.25); Estimated Glomerular Filt Rate 64 ml/min (>60); GFR (African American) 77 ML/MIN (>60)
[2025-03-24] MEDS: MORPHINE 4MG/ML SYRINGE 4 MG IV (22:06)
[2025-03-24] MEDS: ONDANSETRON 4MG/2ML VIAL 4 MG IV (22:06)
[2025-03-24 22:07] LABS: Albumin/Globulin Ratio 1.5 (1.1-1.8); Alkaline Phosphatase 94 U/L (38-126); Calcium 8.6 mg/dl (8.4-10.2); Globulin 2.6 g/dL (1.3-3.2); Glucose 192 mg/dl (74-100); Total Protein,Serum 6.6 g/dl (6.3-8.2)
[2025-03-24 22:16] LABS: Lipase 178 U/L (23-300)
[2025-03-24 22:21] LABS: D-Dimer 0.44 ug/mL (0.0-0.5)
[2025-03-24 22:22] LABS: Troponin I < 0.01 ng/ml (0.00-0.034)
[2025-03-24 22:30] VITALS: BP 146/67; PULSE 80; RESP 22; O2SAT 90
--- NOTE | 2025-03-24 23:22 | ED_ITS ---
Discharge Plan Disposition Patient Disposition: Home, Self-Care Condition: Good Prescriptions Prescriptions: No Action omega 8-[id number]-fish oil [Fish Oil] 1,000 mg (120 mg-180 mg) capsule 1 cap PO DAILY latanoprost 0.005 % drops 1 drp Eye-Both HS Patient Comments: INSTILL 1 DROP INTO EACH EYE AT BEDTIME nitroglycerin 0.4 mg tablet, sublingual 0.4 mg sublingual NEEDED PRN (Reason: Chest Pain) Jardiance 10 mg tablet 10 mg PO DAILY pantoprazole 40 mg tablet,delayed release (DR/EC) 40 mg PO DAILY Qty: 90 5RF losartan 50 mg tablet 25 mg PO DAILY bisoprolol fumarate 5 mg tablet 2.5 mg PO DAILY Qty: 90 3RF aspirin [Adult Low Dose Aspirin] 81 mg tablet,delayed release (DR/EC) 81 mg PO DAILY 90 Days Qty: 90 3RF atorvastatin 40 mg tablet 40 mg PO HS Qty: 90 3RF levalbuterol tartrate [Xopenex HFA] 45 mcg/actuation HFA aerosol inhaler 2 inh inhalation QID PRN (Reason: shortness of breath or wheezing) 90 Days Qty: 15 3RF metformin 500 MG tablet 500 mg PO BID gabapentin 600 MG tablet 600 mg PO TID flaxseed oil 1,000 MG capsule 1,000 mg PO DAILY brimonidine 5 ML bottle 1 drp EYE-BOTH BID Rx Instructions: HAS FILLED BRIMONIDINE, DORZOLAMIDE-TIMOLOL, AND LANTANOPROST ALL IN THE LAST MONTH. dorzolamide-timolol 10 ML bottle 1 drp EYE-BOTH BID Rx Instructions: HAS FILLED BRIMONIDINE, DORZOLAMIDE-TIMOLOL, AND LANTANOPROST ALL IN THE LAST MONTH. zinc sulfate 220 MG capsule 220 mg PO DAILY Qty: 100 0RF prednisone 20 mg tablet 40 mg PO DAILY 5 Days Qty: 10 0RF clopidogrel 75 mg tablet 75 mg PO DAILY doxycycline monohydrate 100 mg capsule 100 mg PO BID 5 Days Qty: 10 0RF Referrals Follow up/Referrals: Chandra Bell II, MD [Staff Physician, Gastroenterology] - See instructions Mauricio Durham MD [Primary Care Provider, Medical] - See instructions Steve Munguia MD [Physician, Pulmonology] - See instructions Marcus Mcdaniel MD [Staff Physician, Cardiology] - See instructions Activity Restrictions/Add. Instructions Additional Instructions/Restrictions: You were evaluated in the emergency department today. As we had discussed, we were planning to obtain CT scans to further assess your pain as well as obtain a second heart enzyme/troponin. You are electing to go home without waiting for these tests. Given this, it is very important that you follow-up right away outpatient for further assessment, as your symptoms that you are having today are very concerning. Please return right away for new or worsening symptoms as well. Clinical Impressions Clinical Impression: Chest pain Instructions Patient Instructions: DI for Atypical Chest Pain, DI for Chest Pain Print Language Print Language: Eritrean Discharge ED Provider: Beverley Haro HPI General Chief Complaint: Chest Pain Stated Complaint: Chest Pain Time Seen by Provider: 03/24/25 21:56 Mode of Arrival: Ambulatory Source of Information: Patient and Relative Description of Symptoms (Recalled from ER Triage Doc. by RN): pt presnts with c/o midsternal chest pressure that began x2 days ago, pt reports associated cough. pt reports HX of stents placed per Dr Steen. History of Present Illness HPI narrative: This patient is an 85-year-old male with a history of CAD status post stenting, GERD, hypertension, hyperlipidemia, type 2 diabetes, cardiomyopathy, COPD, and abnormal chest CT awaiting pulmonology follow-up presenting to the emergency department for evaluation with concern for bilateral pleuritic chest pain that started yesterday. Patient states that he also has a cough. He notes this feels similar to prior heart attack. He states that his pain is on both sides of his chest and in the middle of his chest/epigastric region and is worse when he takes a deep breath. He denies any falls or injuries. He also denies any fevers, chills, cough, congestion, nausea, vomiting, changes in bowel movements, or other concerns. Related Data Home Medications ?Medication ?Instructions ?Recorded ?Confirmed omega 6-wvz-ojx-fish oil 1,000 mg 1 cap PO DAILY Suppl ement 10/24/17 11/15/24 (120 mg-180 mg) capsule (Fish Oil) brimonidine 0.2 % eye drops 1 drp Eye-Both BID Glaucom a 08/14/21 11/15/24 dorzolamide 22.3 mg-timolol 6.8 1 drp Eye-Both BID Gla ucoma 08/14/21 11/15/24 mg/mL eye drops flaxseed oil 1,000 mg capsule 1,000 mg PO DAILY Supple ment 08/14/21 11/15/24 gabapentin 600 mg tablet 600 mg PO TID NEUROPATHY 11/15/24 metformin 500 mg tablet 500 mg PO BID Diabetes 08/1411/15/24 latanoprost 0.005 % eye drops 1 drp Eye-Both HS 11/15/24 nitroglycerin 0.4 mg sublingual 0.4 mg sublingual N EEDED PRN 02/06/23 11/15/24 tablet Chest Pain empagliflozin 10 mg tablet 10 mg PO DAILY 04/14/24 (Jardiance) losartan 50 mg tablet 25 mg PO DAILY 10/15/2410/26 clopidogrel 75 mg tablet 75 mg PO DAILY 11/15/2410/26 Previous Rx's ?Medication ?Instructions ?Recorded zinc sulfate 50 mg zinc (220 mg) 220 mg (4.4 x 50 mg z inc (220 mg)) 08/22/21 capsule PO DAILY #100 caps aspirin 81 mg tablet,delayed 81 mg PO DAILY Heart dise ase 90 08/09/23 release (Adult Low Dose Aspirin) days #90 tabs atorvastatin 40 mg tablet 40 mg PO HS Cholesterol #90 tabs 02/07/24 pantoprazole 40 mg tablet,delayed 40 mg PO DAILY #90 t abs 04/14/24 release levalbuterol tartrate 45 2 inh inhalation QID PRN flaquito rtness 07/30/24 mcg/actuation aerosol inhaler of breath or wheezing 90 days #15 (Xopenex HFA) grams bisoprolol fumarate 5 mg tablet 2.5 mg (1/2 x 5 mg) PO DAILY #90 10/15/24 tabs doxycycline monohydrate 100 mg 100 mg PO BID 5 days #1 0 caps 11/15/24 capsule prednisone 20 mg tablet 40 mg (2 x 20 mg) PO DAILY 5 days 11/15/24 #10 tabs Allergies Allergy/AdvReac Type Severity Reaction Status Date / Time No Known Allergies Allergy Verified 10/15/24 13:45 [facility] Disclaimer: The information contained in this section may have been updated after the patient was seen, as this information can be updated by other users. Medical History Abnormal findings on diagnostic imaging of heart and coronary circulation CAD (coronary artery disease) HLD (hyperlipidemia) GERD (gastroesophageal reflux disease) Diabetes mellitus DIAMOND (obstructive sleep apnea) Cardiomyopathy Angina pectoris Pleural calcification History of 2019 novel coronavirus disease (COVID-19) COPD mixed type Pulmonary emphysema Colon cancer Dyspnea on exertion Lung mass Difficulty swallowing liquids Dyspnea Chest pain HTN (hypertension) Surgical History Stented coronary artery History of heart artery stent History of cataract surgery History of colon surgery Family History Sister Lung cancer Father Emphysema lung Social History Smoking Status: Never smoker alcohol intake: never substance use type: denies use current occupational status: retired Travel in the last 8 weeks?: None household members: spouse housing: house caffeine: No Have you lived/traveled outside [place] in past 30 days?: No Contact w/someone who lives/traveled outside [place] past 30 days?: No Exposure to someone with infectious disease in past 14 days?: No Do you have a fever (greater than 100.4 F or 38 C)?: No Have you tested positive for COVID-19?: No Exposed to someone with COVID-19 in past 14 days?: No Do you have a sore throat?: No Do you have a cough?: No Do you have any weakness?: No Do you have any diarrhea?: No Are you experiencing any unusual bleeding?: No Do you have any muscle aches/pain?: No Do you have any abdominal pain?: No Are you experiencing loss of taste or smell?: No Other Medical History Have you received the Flu Vaccine for this season: No Have you received the Pneumonia Vaccine: Yes ROS Obtained: Yes All systems reviewed & no additional complaints except as documented Physical Exam General General appearance: alert and in no apparent distress Head Head exam: atraumatic and normocephalic Eye Eye exam: Present normal appearance, PERRL and EOMI ENT ENT exam: Present normal exam, normal oropharynx, mucous membranes moist and normal external ear exam Neck Neck exam: Present normal inspection, full ROM and trachea midline; Absent tenderness Chest Chest inspection: Present normal inspection and symmetric chest wall rise; Absent tenderness Respiratory Respiratory exam: Present normal lung sounds bilaterally; Absent respiratory distress, wheezes, stridor or accessory muscle use Cardiovascular Cardiovascular exam: Present regular rate and normal rhythm Abdominal Exam Abdominal exam: Present soft; Absent distention, tenderness or guarding Extremities Exam Extremities exam: Present normal inspection, full ROM and normal capillary refill; Absent tenderness or edema Back Exam Back exam: Present normal inspection and full ROM; Absent tenderness Neurological Exam Neurological exam: Present alert, oriented X3, CN II-XII intact and normal gait; Absent motor sensory deficit Psychiatric Psychiatric exam: Present normal affect and normal mood Skin Skin exam: Present warm and dry HEART Score HEART Score HEART Score assessment performed?: Yes History (anamnesis): Slightly suspicious ECG: Normal Age: >65 years Risk factors: Atherosclerosis history Troponin: </= normal limit HEART Score: 4 Critical Care Critical Care Time Critical Care Time: No Medical Decision Making Andi Inquiry Pt receiving controlled substance: No Vital Signs Vital Signs: 03/24/25 21:53 03/24/25 22:30 Temperature 98.9 F Temperature Source Oral Pulse Rate 80 Pulse Rate [Radial] 77 Respiratory Rate 12 22 Blood Pressure 146/67 H Blood Pressure [Right Arm] 156/83 H Blood Pressure Mean 93 Blood Pressure Mean [Right Arm] 107 Blood Pressure Position [Right Arm] Sitting 02 Sat by Pulse Oximetry 95 90 L Oxygen Delivery Method Room Air Lab Data Labs: Lab Results 03/24/25 21:50: WBC 8.0, RBC 4.12 L, Hgb 12.0 L, Hct 36.8 L, MCV 89.3, MCH 29.1, MCHC 32.6, RDW 14.9, Plt Count 141 L, MPV 10.8 H, Neut % (Auto) 64.4, Lymph % (Auto) 16.5, [place] % (Auto) 12.0 H, Eos % (Auto) 6.4, Baso % (Auto) 0.3, Neut # (Auto) 5.2, Lymph # (Auto) 1.3, [place] # (Auto) 1.0, Eos # (Auto) 0.5 H, Baso # (Auto) 0.0, D-Dimer 0.44, Sodium 139, Potassium 4.6, Chloride 105, Carbon Dioxide 24, Anion Gap 14.6, BUN 21 H, Creatinine 1.10, Estimated Creat Clear 68, Estimated GFR 64, Est GFR ( Amer) 77, Glucose 192 H, Calcium 8.6, Total Bilirubin 1.1, AST 27, ALT 19, Alkaline Phosphatase 94, Troponin I < 0.01, Total Protein 6.6, Albumin 4.0, Globulin 2.6, Albumin/Globulin Ratio 1.5, Lipase 178 03/24/25 22:16: Lactate 1.3 03/24/25 21:50 03/24/25 21:50 Response Orders (Tests/Meds): ED MEDICATIONS Discontinued Medications Generic Name Dose Route Start Last Admin Trade Name Freq PRN Reason Stop Dose Admin Aspirin 324 mg 03/24/25 21:57 03/24/25 22:05 Aspirin 81mg Chewable Tablet PO 03/24/25 21:58 324 mg ONCE ONE Administration Morphine Sulfate 4 mg 03/24/25 22:02 03/24/25 22:06 Morphine 4mg/Ml Syringe IV 03/24/25 22:03 4 mg ONCE ONE Administration Ondansetron HCl 4 mg 03/24/25 22:02 03/24/25 22:06 Ondansetron 4mg/2ml Vial IV 03/24/25 22:03 4 mg ONCE ONE Administration ORDERS Category Date Time Status CXR --portable [XR chest portable] Stat Exams 03/24/25 22:03 Taken Complete Blood Count Auto Diff Stat Lab 03/24/25 21:50 Completed Comprehensive Metabolic Panel Stat Lab 03/24/25 21:50 Completed D-Dimer Stat Lab 03/24/25 21:50 Completed Lactic Acid Stat Lab 03/24/25 22:16 Completed Lipase Stat Lab 03/24/25 21:50 Completed Trop I [Troponin I] Stat Lab 03/24/25 21:50 Completed Troponin I Q3H Lab 03/25/25 01:00 Ordered Troponin I Q3H Lab 03/25/25 04:00 Ordered ECG Data Tracing #1: Attestation: I reviewed this ECG and interpreted as documented below: ECG Narrative: Normal sinus rhythm with a ventricular rate of [address] changes concerning for ischemia. Normal axis and intervals. No significant interval change from prior EKG ECG initial impression date: 03/24/25 ECG initial impression time: 21:47 MDM Narrative Medical Decision Narrative: In summary, this patient is a 85-year-old male presenting to the Emergency Department for evaluation of chest pain. Differential diagnoses considered include but are not limited to ACS, dysrhythmia, PE, pleurisy, pneumothorax, pneumonia, gastroenteritis, gastritis. Ruling out the most morbid conditions drove assessment. It should be noted patient's history includes CAD, hypertension, hyperlipidemia, COPD, GERD, diabetes which may or may not be at goal therapy. This complicates all aspects of care by increasing patient's risk for morbidity. I reviewed patient's past medical records and noted prior cardiac catheterization from last year and prior cardiology evaluations for maintenance of health. He had blockages around 50% at that time last year and did not receive new stents. On exam, the patient is sitting upright in no acute distress. Cardiopulmonary exam is reassuring with no adventitious lung sounds noted. Vitals are normal on cardiac telemetry with no significant tachycardia, hypoxia, or profound hypertension. Abdominal exam is benign with no localizable tenderness. Workup included CBC, CMP, lipase, troponin, D-dimer, chest x-ray, EKG. I independently interpreted chest x-ray prior to the radiologist read and noted bibasilar atelectasis without new focal consolidation with compared to prior x-ray. Please see their read for final interpretation. Labs were obtained that demonstrated reassuring CBC with no significant leukocytosis or anemia, reassuring chemistry, negative troponin, negative D-dimer. I recommended to the patient because he was still having some pain after IV morphine, Zofran, and oral aspirin that I would say for second troponin and CT scans of his chest, abdomen, and pelvis to further assess with going on and see what the cause of his pain could be. He states that he is feeling a bit better and would rather just try going home with his heart enzyme was negative. He states the only thing that he was worried about was a heart attack, and since that heart enzyme is negative he wants to go. I advised him that his symptoms are still very worrisome and that if he does not want to stay here for second troponin and CT scans, I recommend at least very close follow-up with cardiology and pulmonology given his prior history of abnormal lung scarring. He also states that he has some issues with acid reflux and swallowing, so I recommended GI follow-up as well. Ultimately, he is electing to go home and be discharged via patient directed discharge at this time with improvement in symptoms and reassuring vitals on cardiac telemetry. Strict return precautions were given.
[2025-03-24 23:29] VITALS: BP 125/60; PULSE 79; RESP 21; TEMP 37; O2SAT 98
== END 2025-03-24 23:30 | disposition home or self-care (01) ==
PROVIDERS: Emergency Provider Emergency Medicine; PCP Family Medicine
DX: R07.2 Precordial pain (principal); K21.9 Gastro-esophageal reflux disease without esophagitis; I25.119 Atherosclerotic heart disease of native coronary artery with unspecified angina pectoris; I10 Essential (primary) hypertension; E78.5 Hyperlipidemia, unspecified; Z95.5 Presence of coronary angioplasty implant and graft
CPT/HCPCS: 71045; 80053; 83605; 83690; 84484; 85025; 85378; 93005; 96374; 96375; 99285; J2270; J2405

== ENCOUNTER 2025-04-06 15:04 | Outpatient (CLI) | payer MEDICARE, SELFPAY ==
--- OUTSIDE RECORDS SUMMARY | 2024-11-10 06:00 | XMS_ITS ---
Author Organization [facility] Address 12[address] [facility] [address] [place] [id number] Care Team Providers Care Magazine Repairer Name Role Phone Bella Durham Primary Care [...] 54 Performing Lab: Notes/Report: Test performed by [facility][note 3]0 [facility] , [address], [place] [address] Silvano Mariano MD, Stave Log Cut Off Saw Operator CLIA: [id number] Sodium 145 135-145 mmol/L Potassium 5.0 3.5-5.3 [...] 38 Performing Lab: Notes/Report: Test performed by [facility], [address] , [address], [place] [address] Silvano Mariano MD, Stave Log Cut Off Saw Operator CLIA: [id number] Cholesterol 147 <200 mg/dL Triglycerides 243 <150 [...] Interpretation:Normal Performing Lab: Notes/Report: Test performed by [facility] [address] , [place] [address] Silvano Mariano MD, Stave Log Cut Off Saw Operator CLIA: [id number] Albumin/Creatinine Ratio, Urine 28 0-30 ug/m g [...] HCl 500 MG take 1 tablet by [facility] twice daily; Duration: 90 days Active Gabapentin [...] 11/10/2024 Encounters Encounter Location Date Provider Diagnosis 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 ; Degenerative disc disease, lumbar M51.36 ; Coronary artery disease involving [place] coronary artery of [place] heart without angina pectoris I25.10 ; History [...] - M51.36) 11/10/2024 Coronary artery disease involving [place] coronary artery of [place] heart without angina pectoris (ICD-10 - I25.10) [...] 3 Months, Reason: Provider Name:Bella Ragsdale er, 04/17/2025 11:15:00 AM, [facility]0 [facility] 36 [facility], [address], [place], [place], [id number], Provider Name:Bella Flores er, 06/22/2025 10:00:00 AM, [address] [facility] 36 [facility], [facility] [address], [place], [place], [phone], Progress Notes * SARIAH SAMUELSDOB:1940 (85 yo M)Acc No.[id number]:11/10/2024 Progress Notes Patient: JESSICA SHAVERDESIREE Provider: Bella Durham M.D. :1940 A ge:84 Y S ex:Male Date:11/10/2024 Address:[facility] [address], [place], [id number] Subjective: * Chief Complaints: * 1 . 3 month check. * HPI: C ardiology: The patient is here for a check up on Hypertension, Hyperlipidemia danie Diabetes. Pt states he is doing good and denies any new concerns today. Pt states he is fasting. Pt states he is out of Jardiance and is needing refills sent to [facility] in [place]. 84 year old male presents with c/o [...] on CXR 5cm, Mixed hyperlipidemia, Flu shot 2017, [place], Covid vaccine x2 - November 2020. * [...] 3 . C oronary artery disease involving [place] coronary artery of [place] heart without angina pectoris - I25.10 4. [...] patient in office. 2.?Coronary artery disease involving [place] coronary artery of [place] heart without angina pectoris?LAB: P-Lipid Panel (Collection [...] Creatinine 54 L >59 - mL/min/1.73m2 * Jayshree Villagran 11/11/2024 9:18: 37 AM [...] G 2211 Complex e/[place], [address] P[place]SE OX, G8752 MOST RECENT SYSTOLIC BP < 140MM HG, G8754 MOST RECENT DIASTOLIC BP < 90MM HG, 3051F HG A1C>EQUAL 7.0%<8.0%, 19162 GLYCATED HEMOGLOBIN TEST, Modifiers: QW , 79451 CBC WITH AUTO DIFF, 94441 VENIPUNCT, ROUTINE*, 06322 SPECIMEN HANDLING * Follow Up: 3 Months * Images: Billing Information: * Visit Code: 07931 Office Visit, Est Pt., Level 4. * Procedure Codes: G2211 Complex e/[place]. [address] PULSE OX. G8752 MOST RECENT SYSTOLIC BP < 140MM HG. G8754 MOST RECENT DIASTOLIC BP < 90MM HG. 3051F HG A1C>EQUAL 7.0%<8.0%. 25494 GLYCATED HEMOGLOBIN TEST. Modifiers: QW 32480 CBC WITH AUTO DIFF. 77092 VENIPUNCT, ROUTINE*. 13659 SPECIMEN HANDLING. * Electronic signature of Bella Durham MD on 04/06/2025 at 03:07 PM EDT Sign off status: Pending * Provider: Bella [place] M.D. Date: 0 11/10/2024 Generated for Emiliano renner/Chente/Isiahitting on: 0 04/06/2025 03:07 PM EDT History and Physical Notes * [...]
--- OUTSIDE RECORDS SUMMARY | 2025-02-02 06:15 | XMS_ITS ---
[facility] [address] [facility] [address] [facility] [address] [place] [id number] Care Team Providers Care Burial Vault Setter Name Role Phone Bella Durham Primary Care Provider Allergies No Known Allergies Results Component Value Reference Range Notes Glycohemoglobin A1c (in hous e) (Not yet reviewed by provider) Interpretation:7.7% Performing Lab: Notes/Report: 7.7% glycohemoglobin 7.7% 5 - 6.5 % P-Comprehensive Metabolic Pa marguerite (CMP) (Not yet reviewed by provider) Interpretation:cl 110, gluc 333, gfr 57, prot 5.7 Performing Lab: Notes/Report: Test performed by [facility] [address] [place] [address] , [address], [place] [address] Silvano Mariano MD, Property Clerk CLIA: [id number] Sodium 144 135-145 mmol/L Potassium 4.6 3.5-5.3 [...] Interpretation:Normal Performing Lab: Notes/Report: Test performed by [facility] [address] [place] [address] , [address], [place] [address] Silvano Mariano MD, Property Clerk CLIA: [id number] Erythrocyte Sedimentation Rate (ESR), Automated 13 <21 [...] HCl 500 MG take 1 tablet by [facility] twice daily; Duration: 90 days Active [...] Risk Notes Problem Malignant neoplasm of prostate (C61) Active confirmed Problem Cardiomyopathy (07237100) Cardiomyopathy, unspecified type (I42.9) Active confirmed Problem BMI 30+ - obesity (492253786) BMI 32.0-32.9,adult (Z68.32) Active confirmed Vital Signs Blood pressure systolic 110 mm Hg 02/03/20 25 Blood pressure diastolic 54 mm Hg 025 Heart Rate 58 /min 02/02/2025 Height 68 in 02/02/2025 Weight 213.6 lbs 02/02/2025 BMI 32.47 kg/m2 02/02/2025 Encounters Encounter Location Date Provider Diagnosis [facility] [address] [place], [place] [id number] 02/02/2025 Bella Durham 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 ; H/O malignant neoplasm of colon Z85.038 ; Degenerative disc disease, lumbar M51.36 ; Osteoarthritis of spine with radiculopathy, lumbar region M47.26 ; Coronary artery disease involving [place] coronary artery of [place] heart without angina pectoris I25.10 ; History [...] - M47.26) 02/02/2025 Coronary artery disease involving [place] coronary artery of [place] heart without angina pectoris (ICD-10 - I25.10) [...] 5 month, Reason: Provider Name:Bella Ragsdale , 04/17/2025 11:15:00 AM, [address], [address], [place], [place], [id number], Provider Name:Bella Ragsdale , 06/22/2025 10:00:00 AM, [address], [address], [place], [place], [phone], Progress Notes * SARIAH SAMUELSDOB:1940 (85 yo M)Acc No.[id number]:02/02/2025 Progress Notes Patient: Romelia SARIAH CRUZ Provider: Bella Durham M.D. :1940 A ge:85 Y S ex:Male Date:02/02/2025 Address:[address] [place] [address] [id number] Subjective: * Chief Complaints: * 1 . [...] CXR 5cm, Mixed hyperlipidemia, Flu shot 2017, [place], Covid vaccine x2 - November 2020. * [...] N AD. H EENT: s ome right islam area tenderness. O ral cavity: n o [...] 5 . C oronary artery disease involving [place] coronary artery of [place] heart without angina pectoris - I25.10 6 [...] unspecified type - I42.9 1 4. B [place] 32.0-32.9,adult - Z68.32 1 5. D egeneration [...] G 2211 Complex e/[place], [address] GLYCATED HEMOGLOBIN TEST, Modifiers: QW , 3051F HG A1C>EQUAL 7.0%<8.0%, G8752 MOST RECENT SYSTOLIC BP < 140MM HG, G8754 MOST RECENT DIASTOLIC BP < 90MM HG * Follow Up: 5 month * Images: Billing Information: * Visit Code: 21002 Office Visit, Est Pt., Level 4. * Procedure Codes: G2211 Complex e/[place]. [address] GLYCATED HEMOGLOBIN TEST. Modifiers: QW 3051F HG A1C>EQUAL 7.0%<8.0%. G8752 MOST RECENT SYSTOLIC BP < 140MM HG. G8754 MOST RECENT DIASTOLIC BP < 90MM HG. * Electronic signature of Bella Durham MD on 04/06/2025 at 03:07 PM EDT Sign off status: Pending * Provider: Bella Durham M.D. Date: 0 02/02/2025 Generated for Emiliano renner/Chente/Isiahitting on: 0 04/06/2025 03:07 PM EDT History and Physical Notes * HPI (History of Present Illness) Category Sub-Category Detail Notes Category Not es Cardiology Short of Breath Chest Pain Palpitations Dizziness Examination Category Sub-Category Detail Notes Category Not es General Examination HEENT: some right islam are a tenderness Heart: RSR, aortic murmur [...]
--- OUTSIDE RECORDS SUMMARY | 2025-04-06 15:07 | XMS_ITS | Clinical Summary ---
Author Organization [facility] Address [address] [place] [address] Care Team Providers Care Roller Printer Name Role Phone Javier Durham MD Primary Care Provider [phone] Steve Munguia MD Unavailable [phone] Devendra Garibay MD Unavailable [phone] Allergies No known active allergies Medications [...] Done Comments [facility]-Medicare Annual Wellness (AWV) 1940 [facility]-Infant/Child/Adol SDOH Screenings 1940 [facility]- SDOH Screenings 1959 [facility]-Adult SDOH Screenings 1959 [facility]-Pneumococcal Vaccine: 50+ Years (1 of 2 - PCV) 01/02/1960 [facility]-RSV Vaccine: 60+ Years or (1 - 1-dose 75+ series) 01/02/2016 [id number] Vaccine (3 - season) 2024 12/20/2020, 11/22/2020 [facility]-Influenza Vaccine (#1) 05/25/202507/19, 07/20/2022, 08/04/2021, Additional history exists [facility]-Depression Screening [...] Patient has decision-making capacity? Yes Care Teams Roller Printer Relationship Specialty Start Date End Date Javier Durham MD [address] [place] [address] PCP - General 02/04/21 Steve Munguia MD [address] [place] [address] Referring Physician 06/18/24 Devendra Garibay MD [address] [place] [address] Consulting Physician Pulmonary Disease 06/18/24
--- OUTSIDE RECORDS SUMMARY | 2025-04-06 15:07 | XMS_ITS | Encounter Summary ---
Author Organization [facility] Address [address] [place] [address] Care Team Providers Care Third Helper Name Role Phone Javier Durham MD Primary Care Provider [phone] Steve Munguia MD Unavailable [phone] Devendra Garibay MD Unavailable [phone] Encounter Details Date Type Department Care Team (Late st Contact Info) Description 04/01/2024 Orders Only External Location [address] [place] [address] Provider, External Social History Tobacco Use Types [...] on filedocumented in this encounter Care Teams Third Helper Relationship Specialty Start Date End Date Javier Durham MD [address] [place] [address] PCP - General 02/04/21 Steve Munguia MD [address] [place] [address] Referring Physician 06/18/24 Devendra Garibay MD [address] [place] [address] Consulting Physician Pulmonary Disease 06/18/24 documented as of this encounter
--- NOTE | 2025-04-06 15:08 | XR_ITS ---
FINAL REPORT CLINICAL HISTORY: F/U ON ER VISIT FOR PNEUMONIA COMPARISON: 03/25/2025 FINDINGS: 2 views of the chest were obtained . The heart is normal in size. The mediastinum is within normal limits. There is persistent airspace opacity in the right lower lobe which may represent pneumonia or scarring. Right perihilar airspace opacity has improved. Left lung is clear. There is no pneumothorax. Osseous structures are unremarkable. IMPRESSION: Improved right perihilar airspace disease, right base density unchanged. Reviewed, Interpreted and Dictated by Mauricio Melendez MD Transcribed by Verena Fraser Authenticated and [facility]
--- OUTSIDE RECORDS SUMMARY | 2025-04-06 15:08 | XMS_ITS | Patient Health Record ---
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 Name Role Phone Bella Durham Primary Care Provider Adebayo Mcpherson Unavailable [phone] Allergies No Known Allergies Results Component Value [...] 54 Performing Lab: Notes/Report: Test performed by [facility], [facility] [address] [place] [address] , [address], [place] [address] Silvano Mariano MD, Technical Services Assistant CLIA: [id number] Sodium 145 135-145 mmol/L Potassium 5.0 3.5-5.3 [...] 38 Performing Lab: Notes/Report: Test performed by [facility], [address] , [address], [place] [address] Silvano Mariano MD, Technical Services Assistant CLIA: [id number] Cholesterol 147 <200 mg/dL Triglycerides 243 <150 [...] Interpretation:Normal Performing Lab: Notes/Report: Test performed by [facility] [address] [place], [place] [address] [address] , [address], [place] [address] Silvano Mariano MD, Technical Services Assistant CLIA: [id number] Albumin/Creatinine Ratio, Urine 28 0-30 ug/m g Microalbumin, Urine, Random 3.7 Creatinine, Urine 133.5 Glycohemoglobin A1c (in hous e) (Not yet reviewed by provider) Interpretation:7.7% Performing Lab: Notes/Report: 7.7% glycohemoglobin 7.7% 5 - 6.5 % P-Comprehensive Metabolic Pa marguerite (CMP) (Not yet reviewed by provider) Interpretation:cl 110, gluc 333, gfr 57, prot 5.7 Performing Lab: Notes/Report: Test performed by [facility] [address] , [address], [place] [address] Silvano Mariano MD, Technical Services Assistant CLIA: [id number] Sodium 144 135-145 mmol/L Potassium 4.6 3.5-5.3 [...] Interpretation:Normal Performing Lab: Notes/Report: Test performed by [facility], [address] , [address], [place] [address] Silvano Mariano MD, Technical Services Assistant CLIA: [id number] Erythrocyte Sedimentation Ra te (ESR), Automated 13 <21 mm/hr Glycohemoglobin A1c (in hous e) Reviewed date:08/19/2024 10:27:27 AM Interpretation: Performing Lab: Notes/Report: glycohemoglobin 7.1% 5 - 6.5 % Reason For Referral Reason follow-up on lung le lisa Diagnosis 1 Lesion of lung (R91. 1) Referral Organization [facility] Referring Provider First Name Bella Mujica Referring Provider Last Name Herminio Referring Provider Speciality [facility] Referred Provider Steve Munguia Referred Provider Specialty Pulmonary Di seases General Notes Jennifer Guillaume 05/19/20 24 3:53:40 PM > faxed to Dr. Munguia Referral Priority Routine Medications Medication SIG (Take, Route, Frequency, Duration) Notes Start Date End Date Status Brimonidine-Dorzolamide 0.1-2 % 1 drop into both eyes Ophthalmic twice a day Active Atorvastatin Calcium 40 MG 1 tab(s) oral ly at bedtime; Duration: 90 days Active Azithromycin 500 MG 1 tablet Orally Once a day; Duration: 3 days 04/06/2025 Active Latanoprost 0.005 % 1 drop into affected eye in the evening Ophthalmic Once a day Active Nitroglycerin 0.4 MG 1 tab(s) sublingual ly every 5 mins as needed 2023 Active methylPREDNISolone 4 MG as directed Oral ly; Duration: 66 days 04/06/2025 Active Vitamin E 180 MG (400 UNIT) 1 capsule Or ally Once a day; Duration: 30 day(s) Active Zinc 50 MG 1 tablet Orally Once a day; Duration: 30 day(s) Active Furosemide 20 MG 1 tablet Orally once a day as needed; Duration: 30 day(s) 11/10/2024 Active Flaxseed Oil 1200 MG as directed Orally Active Triamcinolone Acetonide 0.1 % 1 application Externally Once a day 11/10/2024 Active Probiotic (Lactobacillus) - as directed Orally Active metFORMIN HCl 500 MG take 1 tablet by mouth twice daily; Duration: 90 days Active Aspirin 81 MG 1 tab(s) orally once a day Active Gabapentin 600 MG 1 tab(s) orally 3 times a day; Duration: 60 days 03/04/2025 Active Xalatan 0.005 % 1 gtt in each eye once a day (in the evening) Active Jardiance 10 MG 1 tablet Orally Once a day; Duration: 30 day(s) Not-Taking Bisoprolol Fumarate 5 MG 1 tab(s) orally once a day Active Xopenex HFA 45 MCG/ACT 1 puff as needed Inhalation every 6 hrs Active Plavix 75 MG 1 tab(s) orally once a day Active Albuterol Sulfate HFA 108 (90 Base) MCG/ACT 1 puff as needed Inhalation every 4 hrs Active Pantoprazole Sodium 40 MG 1 tab(s) orall y once a day Active Losartan Potassium 25 MG 1/2 orally once a day Active Immunizations Vaccine Route Administration Date Status Comme nts COVID 19 Pfizer Unknown 11/22/2020 Administered COVID 19 Pfizer Unknown 12/20/2020 Administered DT, 7 YEARS OR OLDER Unknown 12/24/1995 Administered Fluzone High Dose (65yr and older) [...] (65yr and older) IM Intramuscular 08/18/2024 Administered Shingrix Unknown 07/02/2020 Administered Shingrix Unknown 07/02/2020 Administered Shingrix Unknown 10/14/2020 Administered Tetanus Tdap-Adacel (over 7yrs) IM Intramuscular 09/23/2018 Administered xFluzone (6mos and older)-trivalent Unknown 07/17/2014 Administered xFluzone (6mos and older)-trivalent Unknown 07/15/2015 Administered xFluzone High Dose-private (65yr&older) Unknown 07/05/2018 Administered xFluzone High Dose-private (65yr&older) Unknown 06/27/2019 Administered Problems Problem Type SNOMED Code ICD Code Onset Dates Problem Status W/U Status Risk Notes Problem Essential hypertension (48623095) Essential (primary) hypertension (I10) Active confirmed Problem Dizziness (091937612) Dizziness (R42) Active confirmed Problem Essential hypertension (69985524) Essential hypertension (I10) Active confirmed Problem Degeneration of lumbar intervertebral disc (05791011) Degenerative disc disease, lumbar (M51.36) Active confirmed Problem BMI 30+ - obesity (510144511) BMI 32.0-32.9,adult (Z68.32) Active confirmed Problem Malignant neoplasm of prostate (961418405) Malignant neoplasm of prostate (C61) Active confirmed Problem Mixed hyperlipidemia (038960822) Mixed hyperlipidemia (E78.2) Active confirmed Problem Hypertensive heart disease without congestive heart failure (03905884) Hypertensive heart disease without heart failure (I11.9) Active confirmed Problem Old myocardial infarction (9643480) Old myocardial infarction (I25.2) Active confirmed Problem Simple chronic bronchitis (13529542) Simple chronic bronchitis (J41.0) Active confirmed Problem History of malignant neoplasm of prostate (826817624) History of prostate cancer (Z85.46) Active confirmed Problem Gastroesophageal reflux disease without esophagitis (521085205) Gastroesophageal reflux disease without esophagitis (K21.9) Active confirmed Problem COPD - Chronic obstructive pulmonary disease (72408823) Chronic obstructive pulmonary disease, unspecified COPD type (J44.9) Active confirmed Problem Atherosclerotic heart disease of [place] coronary artery without angina pectoris (108633249978715) Coronary artery disease involving [place] coronary artery of [place] heart without angina pectoris (I25.10) Active confirmed Problem Cardiac arrhythmia (427258834) Atrial dysrhythmia (I49.8) Active confirmed Problem Hyperlipidaemia (27028972) Hyperlipidemia, unspecified hyperlipidemia type (E78.5) Active confirmed Problem Occlusion and stenosis of multiple and bilateral cerebral arteries (958205701) Carotid stenosis, bilateral (I65.23) Active confirmed Problem Lumbosacral spondylosis without myelopathy (85065162) Osteoarthritis of spine with radiculopathy, lumbar region (M47.26) Active confirmed Problem Sciatica (27220716) Acute right- sided low back pain with right-sided sciatica (M54.41) Active confirmed Problem Peripheral circulatory disorder associated with diabetes mellitus (560360096) 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 coronary artery without angina pectoris (651768105205094) Atherosclerosis of [place] coronary artery without angina pectoris, unspecified whether [place] or transplanted heart (I25.10) Active confirmed Problem Angina co-occurrent and due to coronary arteriosclerosis (42531696011308362) Coronary artery disease of [place] artery of [place] heart with stable angina pectoris (I25.118) Active confirmed Problem History of placement of stent for coronary artery disease (situation) (693821834) History of coronary artery stent placement (Z95.5) Active confirmed Problem Acute arthritis (53322243) Acute arthritis (M19.90) Active confirmed Problem Hearing loss (88500553) Bilateral hearing loss, unspecified hearing loss type (H91.93) Active confirmed Problem History of malignant neoplasm of colon (829882529) H/O malignant neoplasm of colon (Z85.038) Active confirmed Problem Cardiomyopathy (12800931) Cardiomyopathy, unspecified type (I42.9) Active confirmed Problem Lesion of lung (515703719) Lesion of lung (R91.1) Active confirmed Problem Neurogenic claudication (787662269) Spinal stenosis of lumbar region with neurogenic claudication (M48.062) Active confirmed Problem Type II diabetes mellitus without complication (945553539) Type 2 diabetes mellitus without complication, unspecified whether ocean transportation intermediary insulin use (E11.9) Active confirmed Problem Chronic obstructive pulmonary disease with acute lower respiratory infection (924711519) Chronic obstructive pulmonary disease with (acute) lower respiratory infection (J44.0) Active confirmed Problem COVID-19 (499907632) COVID-19 (U07.1) Active confirmed Problem History of COVID-19 (222721373134830554 ) History of COVID-19 (Z86.16) Active confirmed Problem Esophageal dysphagia (15128763) Esophageal dysphagia (R13.19) Active confirmed Problem Psoriasis (0181457) Psoriasis an d similar disorder (L40.9) Active confirmed Vital Signs Heart Rate 59 /min 04/06/2025 Blood pressure diastolic 76 mm Hg 04/06/2025 Height 68 in 04/06/2025 Blood pressure systolic 124 mm Hg 04/06/2025 Weight 214.0 lbs 04/06/2025 BMI 32.54 kg/m2 04/06/2025 Encounters Encounter Location Date Provider Diagnosis [address] [id number] 05/19/2024 Bella Durham History of prostate cancer Z85.46 ; Lesion of lung R91.1 ; Essential hypertension I10 ; History of coronary artery stent placement Z95.5 ; Coronary artery disease involving [place] coronary artery of [place] heart without angina pectoris I25.10 ; Type 2 diabetes mellitus without complication, unspecified whether ocean transportation intermediary insulin use E11.9 ; Old myocardial infarction I25.2 ; Chronic obstructive pulmonary disease, unspecified COPD type J44.9 and Spinal stenosis of lumbar region with neurogenic claudication M48.[address] [id number] 08/18/2024 Bella Durham 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 ; Encounter for immunization Z23 ; Essential hypertension I10 ; Lesion of lung R91.1 and History of prostate cancer Z85.[address] [id number] 11/10/2024 Bella Durham 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 ; Degenerative disc disease, lumbar M51.36 ; Coronary artery disease involving [place] coronary artery of [place] heart without angina pectoris I25.10 ; History of coronary artery stent placement Z95.5 ; Essential (primary) hypertension I10 ; Localized edema R60.0 and Mild eczema L30.[address] [id number] 02/02/2025 Bella Durham 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 ; H/O malignant neoplasm of colon Z85.038 ; Degenerative disc disease, lumbar M51.36 ; Osteoarthritis of spine with radiculopathy, lumbar region M47.26 ; Coronary artery disease involving [place] coronary artery of [place] heart without angina pectoris I25.10 ; History [...] lumbar region, unspecified whether pain present M51.369 [facility] [address] [place], [place] [id number] 04/06/2025 Bella Durham Acute cough R05.1 ; Chronic obstructive pulmonary disease, unspecified COPD type J44.9 ; Cardiomyopathy, unspecified type I42.9 and Bilateral hearing loss, unspecified hearing loss type H91.93 [facility] [address] [place], [place] [id number] 07/10/2024 Bella Durham 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 [facility] [address] [place], [place] [id number] 09/04/2024 Adebayo [place] Spinal stenosis of lumbar region with neurogenic claudication M48.062 [facility] [address] [facility] [address] [place], [place] [id number] 11/11/2024 Bella Durham [facility] [address] [facility] [address] [place], [place] [id number] 11/27/2024 Bella Durham Spinal stenosis of lumbar region with neurogenic claudication M48.062 [facility] [address] [place], [place] [id number] 03/04/2025 Adebayo [place] Spinal stenosis of lumbar region with neurogenic [...] region with neurogenic claudication (ICD-10 - M48.062) 04/06/2025 Acute cough (ICD-10 - R05.1) 04/06/2025 Chronic obstructive pulmonary disease, unspecified COPD type (ICD-10 - J44.9) 02/02/2025 Degenerative disc disease, lumbar (ICD-10 - M51.36) 11/10/2024 Coronary artery disease involving [place] coronary artery of [place] heart without angina pectoris (ICD-10 - I25.10) 08/18/2024 Essential hypertension (ICD-10 - I10) 05/19/2024 Essential hypertension (ICD-10 - I10) 05/19/2024 History of coronary artery stent placement (ICD-10 - Z95.5) 11/10/2024 History of coronary artery stent placement (ICD-10 - Z95.5) 08/18/2024 Lesion of lung (ICD-10 - R91.1) 04/06/2025 Cardiomyopathy, unspecified type (ICD-10 - I42.9) 02/02/2025 Osteoarthritis of spine with radiculopathy, lumbar region (ICD-10 - M47.26) 02/02/2025 Coronary artery disease involving [place] coronary artery of [place] heart without angina pectoris (ICD-10 - I25.10) 04/06/2025 Bilateral hearing loss, unspecified hearing loss type (ICD-10 - H91.93) 08/18/2024 History of prostate cancer (ICD-10 - Z85.46) 11/10/2024 Essential (primary) hypertension (ICD-10 - I10) 05/19/2024 Coronary artery disease involving [place] coronary artery of [place] heart without angina pectoris (ICD-10 - I25.10) 05/19/2024 Type 2 diabetes mellitus without complication, unspecified whether ocean transportation intermediary insulin use (ICD-10 - E11.9) 11/10/2024 Localized [...] Treatment Pending Test Test Name Order Date CXR 04/06/2025 Glycohemoglobin A1c (in house) P-Comprehensive Metabolic Panel (CMP) P-Sed Rate (ESR) 02/02/2025 Next Appt Details Provider Name:Bella Mujica [facility] er, 04/17/2025 11:15:00 AM, [address] [facility] [address] [facility], [address], [place], [place], [id number], Provider Name:Bella Mujica [facility] er, 06/22/2025 10:00:00 AM, [address] [facility], [address], [place], [place], [id number], Insurance Providers Payer Name Payer Address Payer Phone Subscriber Number Group Number Insured Name Patient Relationship to Insured Coverage Start Date Coverage End Date [employer] (MEDICAR E) [address] [address] [place] [phone] [id number] SARIAH SAMUELS Self - patient is the insured Medical (General) History Medical History History ICD Code 3 heart stents colon cancer 11/26/2016 LLL lesion on CXR 5cm Mixed hyperlipidemia Flu shot 2017, [place] Covid vaccine x2 - November 2020 Surgical History Surgery Date(Month/Year) colon cancer 2002 2 heart stents placed 2014 1 heart stent placed 11/26/16 stent placed 08/2017 colonoscopy 11/2018 Hospitalization History Reason Date(Month/Year) [facility] chest pain 11/26/15-11/30/15
== END 2025-04-06 23:59 | disposition home or self-care (01) ==
LOC: RAD 15:06
PROVIDERS: PCP Family Medicine; Visit Provider Family Medicine
DX: R91.8 Other nonspecific abnormal finding of lung field (principal); J18.9 Pneumonia, unspecified organism
CPT/HCPCS: 71046

== ENCOUNTER 2025-04-24 12:47 | Outpatient (CLI) | payer MEDICARE, SELFPAY ==
--- OUTSIDE RECORDS SUMMARY | 2025-02-02 06:15 | XMS_ITS ---
Author Organization [facility] Address [address] [facility] [address] [facility] [address] [place] [id number] Care Team Providers Care Pageant Director Name Role Phone Bella Durham Primary Care Provider [phone] Allergies No Known Allergies Results Component Value Reference Range Notes Glycohemoglobin A1c (in hous e) Reviewed date:04/23/2025 12:44:33 PM Interpretation:7.7% Performing Lab: Notes/Report: 7.7% glycohemoglobin 7.7% 5 - 6.5 % P-Comprehensive Metabolic Pa marguerite (CMP) Reviewed date:04/23/2025 12:44:33 PM Interpretation:cl 110, gluc 333, gfr 57, prot 5.7 Performing Lab: Notes/Report: Test performed by [facility] [address] [place] [address] , [address], [place] [address] Silvano Mariano MD, Coke Drawer CLIA: [id number] Sodium 144 135-145 mmol/L Potassium 4.6 3.5-5.3 [...] A/G Ratio 1.9 1.1-2.5 P-Sed Rate (ESR) Reviewed date:04/23/2025 12:44:33 PM Interpretation:Normal Performing Lab: Notes/Report: Test performed by [facility] [address] [place] [address] , [address], [place] [address] Silvano Mariano MD, Coke Drawer CLIA: [id number] Erythrocyte Sedimentation Rate (ESR), Automated 13 <21 [...] HCl 500 MG take 1 tablet by [facility] twice daily; Duration: 90 days Active Furosemide [...] Risk Notes Problem Malignant neoplasm of prostate (722652918) Malignant neoplasm of prostate (C61) Active confirmed Problem Cardiomyopathy (07213696) Cardiomyopathy, unspecified type (I42.9) Active confirmed Problem BMI 30+ - obesity (801527784) BMI 32.0-32.9,adult (Z68.32) Active confirmed Vital Signs Blood pressure systolic 110 mm Hg 02/03/20 25 Blood pressure diastolic 54 mm Hg 025 Heart Rate 58 /min 02/02/2025 Height 68 in 02/02/2025 Weight 213.6 lbs 02/02/2025 BMI 32.47 kg/m2 02/02/2025 Encounters Encounter Location Date Provider Diagnosis [facility] [address] [facility] [address] [place], [place] [id number] 02/02/2025 Bella Durham 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 ; H/O malignant neoplasm of colon Z85.038 ; Degenerative disc disease, lumbar M51.36 ; Osteoarthritis of spine with radiculopathy, lumbar region M47.26 ; Coronary artery disease involving [place] coronary artery of [place] heart without angina pectoris I25.10 ; History [...] - M47.26) 02/02/2025 Coronary artery disease involving [place] coronary artery of [place] heart without angina pectoris (ICD-10 - I25.10) [...] present (ICD-10 - M51.369) Plan Of Treatment Next Appt Details Follow Up: 5 month, Reason: Provider Name:Bella Ragsdale , 05/18/2025 02:30:00 PM, [address], [address], [place], [place], [id number], Provider Name:Bella gómez, 06/22/2025 10:00:00 AM, [address], [address], [place], [place], [id number], Progress Notes * SARIAH SAMUELSDOB:1940 (85 yo M)Acc No.[id number]:02/02/2025 Progress Notes Patient: ANNIKA SHAVERISHAN Provider: Bella Durham M.D. :1940 A ge:85 Y S ex:Male Date:02/02/2025 Address:[address], [id number] Subjective: * Chief Complaints: * 1 . [...] CXR 5cm, Mixed hyperlipidemia, Flu shot 2017, [place], Covid vaccine x2 - November 2020. * [...] 58, O2 Sat: 98% on RA, Nurse: SARAH, Ht: 68, BMI:32.47. * Examination: G eneral Examination: General Appearance: N AD. H EENT: s ome right denominational area tenderness. O ral cavity: n o [...] 5 . C oronary artery disease involving [place] coronary artery of [place] heart without angina pectoris - I25.10 6 [...] unspecified type - I42.9 1 4. B [place] 32.0-32.9,adult - Z68.32 1 5. D egeneration [...] by Creatinine 57 L >59 - mL/min/1.73m2 * Cleopatra Florez 04/23/20 25 12:44:23 PM EDT > See phone encounter 2.?Osteoarthritis of spine with radiculopathy, lumbar region?LAB: P-Sed Rate (ESR) (Collection Date & Time - 02/02/2025 12:29 PM)?Normal * Value Reference Range E rythrocyte Sedimentation Rate (ESR), Automated 13 <21 - mm/hr * Cleopatra Florez 04/23/20 12:44:23 PM EDT > See phone encounter * Labs: * L ab: Glycohemoglobin A1c (in house) (Collection Date & Time - 02/02/2025) 7 .7% Value Reference Range g lycohemoglobin 7.7% 5 - 6.5 % * Yasmin Escobar 02/02/2025 11: 10:57 AM > VikkiCleopatra alarcon Ann 04/23/2025 12:44:23 PM EDT > See phone encounter * Procedure Codes: G 2211 Complex e/[place], [address] GLYCATED HEMOGLOBIN TEST, Modifiers: QW , 3051F HG A1C>EQUAL 7.0%<8.0%, G8752 MOST RECENT SYSTOLIC BP < 140MM HG, G8754 MOST RECENT DIASTOLIC BP < 90MM HG * Follow Up: 5 month * Images: Billing Information: * Visit Code: 58101 Office Visit, Est Pt., Level 4. * Procedure Codes: G2211 Complex e/[place]. [address] GLYCATED HEMOGLOBIN TEST. Modifiers: QW 3051F HG A1C>EQUAL 7.0%<8.0%. G8752 MOST RECENT SYSTOLIC BP < 140MM HG. G8754 MOST RECENT DIASTOLIC BP < 90MM HG. * Electronic signature of Bella Durahm MD on 04/24/2025 at 12:49 PM EDT Sign off status: Pending * Provider: Bella Durham M.D. Date: 0 02/02/2025 Generated for Dennisi ng/Chetne/eTransmitting on: 0 04/24/2025 12:49 PM EDT History and Physical Notes * HPI (History of Present Illness) Category Sub-Category Detail Notes Category Not es Cardiology Short of Breath Chest Pain Palpitations Dizziness Examination Category Sub-Category Detail Notes Category Not es General Examination HEENT: some right denominational are a tenderness Heart: RSR, aortic murmur [...]
--- OUTSIDE RECORDS SUMMARY | 2025-04-06 10:00 | XMS_ITS ---
[facility] Organization [facility] Address [address] [facility] [address] [place], [place] [id number] Care Team Providers Care Intelligence Agent Name Role Phone Bella Durham Primary Care Provider [phone] Allergies No Known Allergies Results Component Value Reference Range Notes CBC Fingerstick (in house) Reviewed date:04/07/2025 09:50:55 AM Interpretation: Performing Lab: Notes/Report: wbc 6.9 3.5 - 10 lym 24.6% 15 - 50 mid 7.0% 2 - 15 gran 68.4% 35 - 80 rbc 4.19 3.5 - 5.5 hgb 12.3 11.5 - 16.5 hct 36.9 35 - 55 mcv 88.1 75 - 100 mch 29.4 25 - 35 mchc 33.3 31 - 38 plat 201 100 - 400 CXR Reviewed date:04/17/2025 12:38:12 PM Interpretation:improved right airspace, density unchanged-04/17 f/u appt Performing Lab: Notes/Report: improved right airspace, density unchanged-04/17 f/u appt REASON FOR VISIT F/U ER Medications Medication SIG (Take, Route, Frequency, Duration) Notes Start Date End Date Status Furosemide 20 MG 1 tablet Orally once a day as needed; Duration: 30 day(s) 11/10/2024 Active Triamcinolone Acetonide 0.1 % 1 application Externally Once a day 11/10/2024 Active metFORMIN HCl 500 MG take 1 tablet by mouth twice daily; Duration: 90 days Active Gabapentin 600 MG 1 tab(s) orally 3 times a day; Duration: 60 days 03/04/2025 Active Jardiance 10 MG 1 tablet Orally Once a day; Duration: 30 day(s) Not-Taking Plavix 75 MG 1 tab(s) orally once a day Active Pantoprazole Sodium 40 MG 1 tab(s) orall y once a day Active Atorvastatin Calcium 40 MG 1 tab(s) oral ly at bedtime; Duration: 90 days Active Nitroglycerin 0.4 MG 1 tab(s) sublingual ly every 5 mins as needed 2023 Active Losartan Potassium 25 MG 1/2 orally once a day Active Flaxseed Oil 1200 MG as directed Orally Active Probiotic (Lactobacillus) - as directed Orally Active Aspirin 81 MG 1 tab(s) orally once a day Active Xalatan 0.005 % 1 gtt in each eye once a day (in the evening) Active Bisoprolol Fumarate 5 MG 1 tab(s) orally once a day Active Zinc 50 MG 1 tablet Orally Once a day; Duration: 30 day(s) Active Albuterol Sulfate HFA 108 (90 Base) MCG/ACT 1 puff as needed Inhalation every 4 hrs Active Brimonidine-Dorzolamide 0.1-2 % 1 drop into both eyes Ophthalmic twice a day Active Latanoprost 0.005 % 1 drop into affected eye in the evening Ophthalmic Once a day Active Vitamin E 180 MG (400 UNIT) 1 capsule Or ally Once a day; Duration: 30 day(s) Active Xopenex HFA 45 MCG/ACT 1 puff as needed Inhalation every 6 hrs Active Azithromycin 500 MG 1 tablet Orally Once a day; Duration: 3 days 04/06/2025 Active methylPREDNISolone 4 MG as directed Oral ly; Duration: 66 days 04/06/2025 Active Vital Signs Blood pressure systolic 124 mm Hg 04/06/20 25 Blood pressure diastolic 76 mm Hg 025 Heart Rate 59 /min 04/06/2025 Height 68 in 04/06/2025 Weight 214.0 lbs 04/06/2025 BMI 32.54 kg/m2 04/06/2025 Encounters Encounter Location Date Provider Diagnosis [facility] [address], [place] [id number] 04/06/2025 Bella Durham Acute cough R05.1 ; Chronic obstructive pulmonary disease, unspecified COPD type J44.9 ; Cardiomyopathy, unspecified type I42.9 and Bilateral hearing loss, unspecified hearing loss type H91.93 Assessments Encounter Date Diagnosis (ICD Code) Assessment Notes Treatment Notes Treatment Clinical Notes Section Notes 04/06/2025 Acute cough (ICD-10 - R05.1) 04/06/2025 Chronic obstructive pulmonary disease, unspecified COPD type (ICD-10 - J44.9) 04/06/2025 Cardiomyopathy, unspecified type (ICD-10 - I42.9) 04/06/2025 Bilateral hearing loss, unspecified hearing loss type (ICD-10 - H91.93) Plan Of Treatment Medication Medication Name Sig Start Date Stop Date Notes Azithromycin 500 MG 1 tablet Orally Once a day; Duration: 3 days 04/06/2025 methylPREDNISolone 4 MG as directed Oral ly; Duration: 66 days 04/06/2025 Next Appt Details Follow Up: 1 Week, Reason: Provider Name:Bella gómez, 05/18/2025 02:30:00 PM, [address] [employer] 36 [facility], [address], [place], [place], [id number], Provider Name:Bella gómez, 06/22/2025 10:00:00 AM, [facility], [facility] [address], [place], [place], [id number], Progress Notes * SARIAH SAMUELSDOB:1940 (85 yo M)Acc No.[id number]:04/06/2025 Progress Notes Patient: SARIAH SHAVER Provider: Bella Durham M.D. :1940 A ge:85 Y S ex:Male Date:04/06/2025 Address:[address] [place], [place] [address], [place], [id number] Subjective: * Chief Complaints: * 1 . F/U ER. * HPI: H PI: 85 year old male presents with c/o Here for follow up on: E R visit. Pt states he was having pain in his chest with deep breaths. Pt states he was out watering his garden a few days prior to the ER visit. Pt states he had a lot of cough about a week prior to his ER visit. Pt states the pain was about a 10/10 on and he got scared and went to the ER on 03/24/25. His initial work-up was negative including negative Troponin. It was recommended that he be admitted for further testing and evaluation, but he declined. CXR suggested atelectasiis vs pneumonia. Pt rates the current pain a bout a 2/10 on the pain scale today. He thinks it relates to his breathing. Pt states he was advised to follow up with his PCP. E NT/respiratory: Appt with Dr. Munguia 05/14. Has CT scan of chest 04/24. * ROS: D ERMATOLOGY: no R shalini. n o H lynne. G ASTROENTEROLOGY: no N ausea. n o V omiting. n o D iarrhea.? U ROLOGY: no D ifficulty urinating. n o B lood in urine. * Medical History: 3 heart stents, Colon cancer, 11/26/2016 LLL lesion on CXR 5cm, Mixed hyperlipidemia, Flu shot 2017, [place], Covid vaccine x2 - November 2020. * [...] quit. Alcohol: No. * Medications: T aking Xopenex HFA 45 MCG/ACT Aerosol 1 puff as needed Inhalation every 6 hrs , Taking Albuterol Sulfate HFA 108 (90 Base) MCG/ACT Aerosol Solution 1 puff as needed Inhalation every 4 hrs , Taking Brimonidine-Dorzolamide 0.1-2 % Solution 1 drop into both eyes Ophthalmic twice a day , Taking Latanoprost 0.005 % Solution 1 drop into affected eye in the evening Ophthalmic Once a day , Taking Vitamin E 180 MG (400 UNIT) Capsule [...] 1/2 orally once a day , Taking Furosemide 20 MG Tablet 1 tablet Orally once a day as needed , Taking Triamcinolone Acetonide 0.1 % Cream 1 application Externally Once a day , Taking metFORMIN HCl 500 MG Tablet take 1 tablet by mouth twice daily , Taking Gabapentin 600 MG Tablet 1 tab(s) orally 3 times a day , Not-Taking Jardiance 10 MG Tablet 1 tablet Orally Once a day , Medication List reviewed and reconciled with the patient * Allergies: N .K.D.A. Objective: * Vitals: W t: 214.0, Temp: 98.1, BP: 124/76, HR: 59, O2 Sat: 96% on RA, Nurse: SARAH, Ht: 68, BMI:32.54. * Examination: G eneral Examination: General Appearance: N AD. H EENT: s ome right taoism area tenderness. O ral cavity: n o lesions, mucosa moist and WNL, no erythema. N lakeisha: ?supple, no lymphadenopathy. C hest: n ormal shape and expansion. H eart: R SR, aortic murmur. L ungs: g ood air entry bilaterally, bibasilar rales but more prominent in the right base. A bdomen: soft and nontender, no organomegaly or masses. N eurologic Exam: I ntact, gait normal. S kin: n ormal, no rash. P eripheral pulses: n ormal . Back: mild dorsal kyphosis. E xtremities: t race leg edema, support stockings.? Assessment: * Assessment: 1. A petra cough - R05.1 (Primary) 2 . C hronic obstructive pulmonary disease, unspecified COPD type - J44.9 3 . C ardiomyopathy, unspecified type - I42.9? 4. B ilateral hearing loss, unspecified hearing loss type - H91.93 ? Plan: * Treatment: Value Reference Range w bc 6.9 3.5 - 10 * l ym 24.6% 15 - 50 * m id 7.0% 2 - 15 * g ran 68.4% 35 - 80 * r bc 4.19 3.5 - 5.5 * h gb 12.3 11.5 - 16.5 * h ct 36.9 35 - 55 * m cv 88.1 75 - 100 * m ch 29.4 25 - 35 * m chc 33.3 31 - 38 * p lat 201 100 - 400 * [place] Forte 04/06/2025 03 :15:12 PM EDT > Provider reviewed results while patient in office. 2.?Chronic obstructive pulmonary disease, unspecified COPD type? Start Azithromycin Tablet, 500 MG, 1 tablet, Orally, Once a day, 3 days, 3 Tablet, Refills 0;?Start methylPREDNISolone Tablet Therapy Pack, 4 MG, as directed, Orally, 66 days, 1, Refills 0.?? * Imaging: * I maging: CXR (Performed Date - 04/06/2025) i mproved right airspace, density unchanged-04/17 f/u appt * Procedure Codes: G 2211 Complex e/[place], [address] CAPILLARY BLOOD DRAW, 57115 CBC WITH AUTO DIFF, 1036F TOBACCO NON-USER, G8783 BP SCR PRFRM RCMDD DEFIND SCR INTVL, G8752 MOST RECENT SYSTOLIC BP < 140MM HG, G8754 MOST RECENT DIASTOLIC BP < 90MM HG * Follow Up: 1 Week * Images: Billing Information: * Visit Code: 61325 Office Visit, Est Pt., Level 4. * Procedure Codes: G2211 Complex e/[place]. [address] CAPILLARY BLOOD DRAW. 12934 CBC WITH AUTO DIFF. 1036F TOBACCO NON-USER. G8783 BP SCR PRFRM RCMDD DEFIND SCR INTVL. G8752 MOST RECENT SYSTOLIC BP < 140MM HG. G8754 MOST RECENT DIASTOLIC BP < 90MM HG. * Electronic signature of Bella Durham MD on 04/24/2025 at 12:49 PM EDT Sign off status: Pending * Provider: Bella Durham M.D. Date: 0 04/06/2025 Generated for Emiliano renner/Chente/eTransmitting on: 0 04/24/2025 12:49 PM EDT History and Physical Notes * HPI (History of Present Illness) Category Sub-Category Detail Notes Category Not es ENT/respiratory Appt with Dr Magaly Munguia 05/14. Has CT scan of chest 04/24. HPI Here for follow up on: ER visit. Pt states he was having pain in his chest with deep breaths. Pt states he was out watering his garden a few days prior to the ER visit. Pt states he had a lot of cough about a week prior to his ER visit. Pt states the pain was about a 10/10 on and he got scared and went to the ER on 03/24/25. His initial work-up was negative including negative Troponin. It was recommended that he be admitted for further testing and evaluation, but he declined. CXR suggested atelectasiis vs pneumonia. Pt rates the current pain about a 2/10 on the pain scale today. He thinks it relates to his breathing. Pt states he was advised to follow up with his PCP Examination Category Sub-Category Detail Notes Category Not es General Examination HEENT: some right taoism are a tenderness Heart: RSR, aortic murmur Lungs: good air entry bilat erally, bibasilar rales but more prominent in the right base Abdomen: soft and nontender, no organomegaly or masses Extremities: trace leg edema, sup port stockings General Appearance: NAD Skin: normal, no rash Neurologic Exam: Intact, gait normal Neck: supple, no lymphaden opathy Oral cavity: no lesions, mucosa m oist and WNL, no erythema Peripheral pulses: normal Back: mild dorsal kyphosis Chest: normal shape and exp ansion
--- OUTSIDE RECORDS SUMMARY | 2025-04-17 07:15 | XMS_ITS ---
[facility] Address [address] [facility] [address] [place] [id number] Care Team Providers Care Province Archivist Name Role Phone Bella Durham Primary Care Provider Allergies No Known Allergies Results Component Value Reference Range Notes CBC Fingerstick (in house) Reviewed date:04/23/2025 12:43:44 PM Interpretation: Performing Lab: Notes/Report: wbc 8.4 3.5 - 10 lym 24.1% 15 - 50 mid 6.0% 2 - 15 gran 69.9% 35 - 80 rbc 4.58 3.5 - 5.5 hgb 13.3 11.5 - 16.5 hct 40.3 35 - 55 mcv 88.0 75 - 100 mch 29.0 25 - 35 mchc 32.9 31 - 38 plat 126 100 - 400 REASON FOR VISIT 1 week, Med recon - failing for med adh for Losartan Medications Medication SIG (Take, Route, Frequency, Duration) Notes Start Date End Date Status Jardiance 10 MG 1 tablet Orally Once a day; Duration: 30 day(s) Not-Taking metFORMIN HCl 500 MG take 1 tablet by [facility] twice daily; Duration: 90 days Active Gabapentin 600 MG 1 tab(s) orally 3 ti mes a day; Duration: 60 days 03/04/2025 Active Nitroglycerin 0.4 MG 1 tab(s) sublingual ly every 5 mins as needed 2023 Active Losartan Potassium 25 MG 1/2 orally once a day Active Furosemide 20 MG 1 tablet Orally once a day as needed; Duration: 30 day(s) 11/10/2024 Active Atorvastatin Calcium 40 MG 1 tab(s) orally at bedtime; Duration: 90 days Active Triamcinolone Acetonide 0.1 % 1 application Externally Once a day 11/10/2024 Active Bisoprolol Fumarate 5 MG 1 tab(s) orally once a day Active Plavix 75 MG 1 tab(s) orally once a day Active Pantoprazole Sodium 40 MG 1 tab(s) orall y once a day Active Aspirin 81 MG 1 tab(s) orally once a day Active Xalatan 0.005 % 1 gtt in each eye on ce a day (in the evening) Active Vitamin E 180 MG (400 UNIT) 1 capsule Orally Once a day; Duration: 30 day(s) Active Zinc 50 MG 1 tablet Orally Once a day; Duration: 30 day(s) Active Latanoprost 0.005 % 1 drop into affected eye in the evening Ophthalmic Once a day Active Flaxseed Oil 1200 MG as directed Orally Active Probiotic (Lactobacillus) - as directed Orally Active Xopenex HFA 45 MCG/ACT 1 puff as needed Inhalation every 6 hrs Active Albuterol Sulfate HFA 108 (90 Base) MCG/ACT 1 puff as needed Inhalation every 4 hrs Active Brimonidine-Dorzolamide 0.1-2 % 1 drop into both eyes Ophthalmic twice a day Active Vital Signs Blood pressure systolic 102 mm Hg 04/17/20 25 Blood pressure diastolic 52 mm Hg 025 Heart Rate 68 /min 04/17/2025 Height 68 in 04/17/2025 Weight 211.8 lbs 04/17/2025 BMI 32.2 kg/m2 04/17/2025 Encounters Encounter Location Date Provider [facility] [address] [id number] 04/17/2025 Bella Durham Simple chronic bronchitis J41.0 ; Chronic obstructive pulmonary disease, unspecified COPD type J44.9 ; Essential (primary) hypertension I10 ; Type 2 diabetes mellitus without complication, unspecified whether group home insulin use E11.9 ; Lesion of lung R91.1 ; History of prostate cancer Z85.46 and History of coronary artery stent placement Z95.5 Assessments Encounter Date Diagnosis (ICD Code) Assessment Notes Treatment Notes Treatment Clinical Notes Section Notes 04/17/2025 Simple chronic bronchitis (ICD-10 - J41.0) 04/17/2025 Chronic obstructive pulmonary disease, unspecified COPD type (ICD-10 - J44.9) 04/17/2025 Essential (primary) hypertension (ICD-10 - I10) 04/17/2025 Type 2 diabetes mellitus without complication, unspecified whether group home insulin use (ICD-10 - E11.9) 04/17/2025 Lesion of lung (ICD-10 - R91.1) 04/17/2025 History of prostate cancer (ICD-10 - Z85.46) 04/17/2025 History of coronary artery stent placement (ICD-10 - Z95.5) Plan Of Treatment Next Appt Details Follow Up: 4 Weeks, Reason: [facility]/18/[facility] 02:30:00 PM, [address], [place], [phone], Provider [facility], 06/22/2025 10:00:00 AM, [facility], [address], [place], [id number], Progress Notes * ASRIAH SAMUELSDOB:1940 (85 yo M)Acc No.[id number]:04/17/2025 Progress Notes Patient: Romelia TRENAPEGGYSARIAH Provider: Bella Durham M.D. :1940 A ge:85 Y S ex:Male Date:04/17/2025 Address:[address] [place] [address] , [place], [id number] Subjective: * Chief Complaints: * 1 . 1 week. 2. Med recon - failing for med adh for Losartan. * HPI: E NT/respiratory: The pt is here for a 1-week follow up on COPD exacerbation and chest xray results. Pt states he has been having some dizziness when he stands up. . Pt states he still has some cough but much better than before. 85 year old male presents with c/o cough. * ROS: D ERMATOLOGY: no R shalini. n o H lynne. G ASTROENTEROLOGY: no N ausea. n o V omiting. n o D iarrhea.? U ROLOGY: no D ifficulty urinating. n o B lood in urine. * Medical History: 3 heart stents, Colon cancer, 11/26/2016 LLL lesion on CXR 5cm, Mixed hyperlipidemia, Flu shot 2017, [place], Covid vaccine x2 - November 2020. * [...] tablet Orally Once a day , Discontinued Azithromycin 500 MG Tablet 1 tablet Orally Once a day , Discontinued methylPREDNISolone 4 MG Tablet Therapy Pack as directed Orally , Medication List reviewed and reconciled with the patient * Allergies: N .K.D.A. Objective: * Vitals: W t: 211.8, Temp: 98.3, BP: 102/52, HR: 68, O2 Sat: 96% on RA, Nurse: SARAH, Ht: 68, BMI:32.2. * Examination: G eneral Examination: General Appearance: [...] B ack: mild dorsal kyphosis. E xtremities: t race leg edema, eczematous rash of lower legs is less prominent. Assessment: * Assessment: 1. S imple chronic bronchitis - J41.0 (Primary) 2 . C hronic obstructive pulmonary disease, unspecified COPD type - J44.9 3 . E ssential (primary) hypertension - I10 4 . T ype 2 diabetes mellitus without complication, unspecified whether intermediate frame tender insulin use - E11.9 5 . L esion of lung - R91.1 6 .?History of prostate cancer - Z85.46 7 . H istory of coronary artery stent placement - Z95.5 Plan: * Treatment: * Labs: * L ab: CBC Fingerstick (in house) (Collection Date & Time - 04/17/2025) Value Reference Range w bc 8.4 3.5 - 10 * l ym 24.1% 15 - 50 * m id 6.0% 2 - 15 * g ran 69.9% 35 - 80 * r bc 4.58 3.5 - 5.5 * h gb 13.3 11.5 - 16.5 * h ct 40.3 35 - 55 * m cv 88.0 75 - 100 * m ch 29.0 25 - 35 * m chc 32.9 31 - 38 * p lat 126 100 - 400 * India Forte 04/17/2025 11 :30:41 AM EDT > Provider reviewed results while patient in office. * Procedure Codes: G 2211 Complex e/[place], [address] CAPILLARY BLOOD DRAW, 02621 CBC WITH AUTO DIFF, G8950 PREHTN/HTN BP DOC INDCD F/U DOC, G8752 MOST RECENT SYSTOLIC BP < 140MM HG, G8754 MOST RECENT DIASTOLIC BP < 90MM HG * Follow Up: 4 Weeks * Images: Billing Information: * Visit Code: 59593 Office Visit, Est Pt., Level 3. * Procedure Codes: G2211 Complex e/[place]. [address] CAPILLARY BLOOD DRAW. 51703 CBC WITH AUTO DIFF. G8950 PREHTN/HTN BP DOC INDCD F/U DOC. G8752 MOST RECENT SYSTOLIC BP < 140MM HG. G8754 MOST RECENT DIASTOLIC BP < 90MM HG. * Electronic signature of Bella Durham MD on 04/24/2025 at 12:49 PM EDT Sign off status: Pending * Provider: Bella Durham M.D. Date: 04/17/2025 Generated for Emiliano renner/Chente/eTransmitting on: 0 04/24/2025 12:49 PM EDT History and Physical Notes * HPI (History of Present Illness) Category Sub-Category Detail Notes Category Not es ENT/respiratory cough Examination Category Sub-Category Detail Notes Category Not [...]
--- OUTSIDE RECORDS SUMMARY | 2025-04-24 12:49 | XMS_ITS ---
Author Organization Unknown Vital Signs BpStanding BpSitting BpSupine Date Temperature HeartRate Weight Hei ght Spo2 Respiration Bmi HeadCircumference FieldCount TimeRecorded NeckCircumferen ce WaistCircumference Pulse 124/76 04/06 00:00 :00 98.1 59 214,0 5,8 32.5 4 6 04/12/2025 14:00:00 110/54 02/02 00:00 :00 97.7 58 213,9.6 0 5,8 32.4 7 6 04/12/2025 10:15:00 114/60 11/10 00:00 :00 97.6 70 211,6.4 0 5,8 32.1 4 6 04/12/2025 10:00:00 110/56 08/18 00:00 :00 97.7 61 210,12. 80 5,8 32.0 5 6 04/12/2025 11:00:00 120/60 05/19 00:00 :00 97.8 62 211,3.2 0 5,8 32.1 1 6 04/12/2025 14:45:00
--- OUTSIDE RECORDS SUMMARY | 2025-04-24 12:49 | XMS_ITS | Clinical Summary ---
Author Organization [facility] Address [address] [place] [address] Care Team Providers Care Grey Goods Marker Name Role Phone Javier Durham MD Primary Care Provider [phone] Allergies No known active allergies Medications atorvastatin (LIPITOR) 40 MG tablet Take 40 mg by mouth Daily. Active pantoprazole (PROTONIX) 40 MG EC tablet Take 40 mg by mouth Daily. Active metFORMIN ER (GLUCOPHAGE-XR) 500 MG 24 hr tablet Take 500 mg by mouth Daily With Breakfast. Active gabapentin (NEURONTIN) 300 MG capsule Take 300 mg by mouth 3 (Three) Times a Day. Active clopidogrel (PLAVIX) 75 MG tablet Take 75 mg by mouth Daily. Active bisoprolol (ZEBeta) 5 MG tablet Take 5 mg by mouth Daily. Active famotidine (PEPCID) 20 MG tablet Take 20 mg by mouth 2 (Two) Times a Day. Active brimonidine (ALPHAGAN) 0.2 % ophthalmic solution 1 drop 3 (Three) Times a Day. Active latanoprost (XALATAN) 0.005 % ophthalmic solution 1 drop Every Night. Active dornase alpha (PULMOZYME) 1 MG/ML nebulizer solution Inhale 2.5 mg Daily. Active aspirin 81 MG chewable tablet Chew 81 mg Daily. Active [place]-3 1000 MG capsule Take by mouth. Active Psyllium (METAMUCIL) wafer wafer Take by mouth Daily. Active Probiotic Product (PROBIOTIC-10 PO) Take by mouth. Active Immunizations Immunization Administration Dates Next Due Fluzone High-Dose 65+YRS 06/27/2019,07/05/2018,1 Influenza TIV (IM) 07/15/2015,07/17/2014 Td (TDVAX) 12/24/1995 Tdap 09/23/2018 Family History Relation Name Status Comments Brother 1 x1 Alive Brother 2 x2 Child x3 Alive Father Maternal Grandfather Maternal Grandmother Mother Paternal Grandfather Paternal Grandmother Sister 1 x3 Alive Sister 2 x1 Social History Tobacco Use Types Packs/Day Years Used Date Smoking Tobacco: Former Cigarettes 1 10 0 09/24/1957 - 09/24/1967 Smokeless Tobacco: Never Alcohol Use Standard Drinks/Week Comments Never 0 (1 standard drink = 0.6 oz pur e alcohol) AUDIT-C Answer Date Recorded Q1: How often do you have a drink containing alc ohol? Never 05/11/2020 Average Number of Drinks Not on file 020 Frequency of Binge Drinking Not on file 04/24 Abuse Screen Answer Date Recorded Unsafe at Home or Work/School Not on file Feels Threatened by Someone? Not on file 08/2023 Does Anyone Keep You from Co ntacting Others or Doint Things Outside the Home? Not on file 07/05/2023 Physical Sign of Abuse Present Not on file 1 Housing Stability Answer Date Recorded Current Living Arrangements Not on file 06/24 Potentially Unsafe Housing Conditions Not on malini e 07/05/2023 Family and Community Support Answer Ross e Recorded Help with Day-to-Day Activities Not on file 07/05/2023 Lonely or Isolated Not on file 07/05/2023 Employment Answer Date Recorded Do you want help finding or keeping work or a corin b? Not on file 07/05/2023 Disabilities Answer Date Recorded Concentrating, Remembering, or Making Decisions Difficulty Not on file 07/05/2023 Doing Errands Independently Difficulty Not on fi le 07/05/2023 Education Answer Date Recorded Help with school or training? Not on file Preferred Language Not on file 07/05/2023 Sex and Gender Information Value Date Recorded Sex Assigned at Not on file Legal Sex Male 1:02 PM EDT Gender Identity Not on file Sexual Orientation Not on file Last Filed Vital Signs Vital Sign Reading Time Taken Comments Blood Pressure 112/72 05/11/2020 2:31 PM EDT Pulse 84 05/11/2020 2:31 PM EDT Temperature 36.2 C (97.1 F) 05/11/2020 2:31 PM EDT Respiratory Rate - - Oxygen Saturation 94% 05/11/2020 2:3 1 PM EDT resting at room air Inhaled Oxygen Concentration - - Weight 94.3 kg (208 lb) 05/11/2020 2:31 PM EDT Height 180.3 cm (5' 11 ) 05/11/2020 2:3 1 PM EDT Body Mass Index 29.01 05/11/2020 2:31 PM EDT Plan of Treatment Health Maintenance Due Date Last Done Comments Pneumococcal Vaccine 50+ (1 of 1 - PCV) 1991 ZOSTER VACCINE (1 of 2) 1991 RSV Vaccine - Adults (1 - 1- dose 75+ series) 01/02/2016 ANNUAL PHYSICAL 05/11/2020 COVID-19 Vaccine ( - 2023-2 5 season) 2024 INFLUENZA VACCINE 06/24/2025 06/27/2019, , 07/18/2017, Additional history exists TDAP/TD VACCINES (3 - Td or Tdap) 09/23/2028 018, 12/24/1995 Insurance MEDICARE A & B [place] [id number] Care Teams Grey Goods Marker Relationship Specialty Start Date End Date Javier Durham MD [address] [facility] [address] [facility] [address] [place] [address] PCP - General Family Medicine 05/11/20
--- OUTSIDE RECORDS SUMMARY | 2025-04-24 12:49 | XMS_ITS | Clinical Summary ---
Author Organization Healthcare Address [address] [place] [address] Care Team Providers Care Allocations Clerk Name Role Phone Javier Durham MD Primary Care Provider [phone] Steve Munguia MD Unavailable [phone] Devendra Garibay MD Unavailable [phone] Allergies No known active allergies Medications [...] or (1 - 1-dose 75+ series) 01/02/2016 [id number] Vaccine (3 - season) 2024 12/20/2020, 11/22/2020 [...] Patient has decision-making capacity? Yes Care Teams Allocations Clerk Relationship Specialty Start Date End Date Javier Durham MD [address] [place] [address] PCP - General 02/04/21 Steve Munguia MD [address] [place] [address] Referring Physician 06/18/24 Devendra Garibay MD [address] [place] [address] Consulting Physician Pulmonary Disease 06/18/24
--- OUTSIDE RECORDS SUMMARY | 2025-04-24 12:49 | XMS_ITS | Encounter Summary ---
Author Organization [facility] Address [address] [place] [address] Care Team Providers Care Laundry Route Driver Name Role Phone Javier Durham MD Primary Care Provider [phone] Steve Munguia MD Unavailable [phone] Devendra Garibay MD Unavailable [phone] Encounter Details Date Type Department Care Team (Late st Contact Info) Description 04/01/2024 Orders Only External Location [address] [place] [address] Provider, External Social History Tobacco Use Types [...] on filedocumented in this encounter Care Teams Laundry Route Driver Relationship Specialty Start Date End Date Javier Durham MD [address] [place] [address] PCP - General 02/04/21 Steve Munguia MD [address] [place] [address] Referring Physician 06/18/24 Devendra Garibay MD [address] [place] [address] Consulting Physician Pulmonary Disease 06/18/24 documented as of this encounter
--- NOTE | 2025-04-24 13:00 | CT_ITS ---
FINAL REPORT TECHNIQUE: Thin section axial images were obtained from the lung apices through the upper abdomen without contrast. This study was performed with techniques to keep radiation doses as low as reasonably achievable (ALARA). Individualized dose reduction techniques using automated exposure control or adjustment of mA and/or kV according to the patient's size were employed. CLINICAL HISTORY: Apr 2025 follow up scan, chest pain COMPARISON: 06/05/2023 and chest x-ray 04/06/2025 FINDINGS: There is no axillary lymphadenopathy. Multiple calcified mediastinal and hilar lymph nodes are present but no lymphadenopathy. No pleural or pericardial effusion. There are prominent coronary artery calcifications. Changes from emphysema are noted. There has been no change in the inferior right upper lobe atelectasis. Rounded opacity in the left lower lobe extends to partially calcified pleural thickening along the left hemidiaphragm and is unchanged. No new nodules or masses identified. No new consolidation.. Limited, unenhanced evaluation of the upper abdomen is without acute abnormality. There is no acute osseous abnormality. IMPRESSION: No acute abnormality. Stable abnormality in the left lower lobe along the left hemidiaphragm favored to be chronic rounded atelectasis associated with pleural thickening. Reviewed, Interpreted and Dictated by Razia Fernández MD Transcribed by Mary Garber Authenticated and [facility]
== END 2025-04-24 23:59 | disposition home or self-care (01) ==
PROVIDERS: PCP Family Medicine; Visit Provider Internal Medicine Pulmonary Disease
DX: R91.8 Other nonspecific abnormal finding of lung field (principal)
CPT/HCPCS: 71250